=== PATIENT | female | born 2005 | race Caucasian/White ===

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

== ENCOUNTER 2024-01-01 21:51 | Outpatient (CLI) | payer OTHER, MEDICAID, SELFPAY ==
[2024-01-01 21:54] VITALS: BMI 20.4
[2024-01-01 21:55] VITALS: BP 128/73; PULSE 89; RESP 18; TEMP 36.6; O2SAT 99
[2024-01-01 21:59] VITALS: BMI 20.4
[2024-01-01 22:06] LABS: Microscopic, Urine URINE MICROSCOPIC (MICROSCOPIC)
[2024-01-01 22:10] LABS: Appearance,Urine CLEAR (Clear); Bilirubin,Urine Negative (Negative); Blood, Urine Negative (Negative); Color,Urine YELLOW (Yellow); Glucose,Urine (UA) Negative (Negative); Ketones,Urine TRACE (Negative); Leukocyte Esterase,Urine TRACE (Negative); Nitrate,Urine Negative (Negative); PH,Urine 6.5 (5.0-8.5); Protein,Urine Negative (Negative); Specific Gravity, Urine 1.025 (1.005-1.030)
[2024-01-01 22:22] LABS: Barbiturates Screen,Urine Negative ng/ml (<200)
[2024-01-01 22:23] LABS: Amphetamine/Metha Screen,Urine Negative ng/ml (<1000); Benzodiazepines Screen,Urine Negative ng/ml (<200)
[2024-01-01 22:24] LABS: Cannabinoid Screen,Urine Negative ng/ml (<50); Cocaine Screen,Urine Negative ng/ml (<300)
[2024-01-01 22:25] LABS: Methadone Screen,Urine Negative ng/ml (<300)
[2024-01-01 22:26] LABS: Opiate Screen,Urine Negative ng/ml (<300); Phencyclidine Screen,Urine Negative ng/ml (<25)
[2024-01-01 23:26] LABS: Squamous Epithelial Cell,Urine Occasional #/hpf (0-5); WBC,Urine Occasional #/hpf (0-3)
[2024-01-01 23:27] LABS: Yeast,Urine Occasional /lpf
== END 2024-01-01 22:48 | disposition home or self-care (01) ==
LOC: OBOUT 21:53 → OB 21:53
PROVIDERS: PCP Physician Assistant; Visit Provider Obstetrics & Gynecology
DX: O26.893 Other specified pregnancy related conditions, third trimester (principal); Z3A.35 35 weeks gestation of pregnancy
CPT/HCPCS: 80307; 81001; G0463

== ENCOUNTER 2024-01-05 09:50 | Outpatient (CLI) | payer OTHER, MEDICAID, SELFPAY ==
[2024-01-05 10:21] VITALS: BP 119/77; PULSE 73; RESP 18; TEMP 36.5; O2SAT 98; BMI 20.4
[2024-01-05 10:33] VITALS: BP 119/77; PULSE 73; RESP 18; TEMP 36.5; O2SAT 98; BMI 20.4
[2024-01-05 10:34] LABS: Microscopic, Urine URINE MICROSCOPIC (MICROSCOPIC)
[2024-01-05 10:44] LABS: Appearance,Urine CLEAR (Clear); Bilirubin,Urine Negative (Negative); Blood, Urine Negative (Negative); Color,Urine YELLOW (Yellow); Glucose,Urine (UA) Negative (Negative); Ketones,Urine TRACE (Negative); Leukocyte Esterase,Urine Negative (Negative); Nitrate,Urine Negative (Negative); Protein,Urine Negative (Negative)
[2024-01-05 11:14] LABS: Bacteria,Urine Trace /lpf
[2024-01-05] MEDS: DEXTROSE 5%-LACTATED RINGERS 1,000 ML 999 ML IV (11:30)
[2024-01-05 11:42] LABS: Amphetamine/Metha Screen,Urine Negative ng/ml (<1000)
[2024-01-05 11:43] LABS: Barbiturates Screen,Urine Negative ng/ml (<200)
[2024-01-05 11:44] LABS: Benzodiazepines Screen,Urine Negative ng/ml (<200); Cannabinoid Screen,Urine Negative ng/ml (<50)
[2024-01-05 11:45] LABS: Cocaine Screen,Urine Negative ng/ml (<300)
[2024-01-05 11:46] LABS: Methadone Screen,Urine Negative ng/ml (<300); Opiate Screen,Urine Negative ng/ml (<300)
[2024-01-05 11:47] LABS: Phencyclidine Screen,Urine Negative ng/ml (<25)
[2024-01-05] MEDS: SODIUM CHLORIDE 0.9% 10ML FLUSH SYRINGE 10 ML IV (12:24)
== END 2024-01-05 12:32 | disposition home or self-care (01) ==
LOC: OBOUT 09:51 → OB 09:53
PROVIDERS: PCP Physician Assistant; Visit Provider Obstetrics & Gynecology
DX: O26.893 Other specified pregnancy related conditions, third trimester (principal); Z3A.35 35 weeks gestation of pregnancy; R42 Dizziness and giddiness; R10.2 Pelvic and perineal pain
CPT/HCPCS: 80307; 81001; G0463

== ENCOUNTER 2024-01-06 20:20 | Outpatient (CLI) | payer OTHER, MEDICAID, SELFPAY ==
[2024-01-06 20:36] VITALS: BMI 20.5
[2024-01-06 20:41] LABS: Microscopic, Urine URINE MICROSCOPIC (MICROSCOPIC)
[2024-01-06 20:45] LABS: Appearance,Urine SL CLOUDY (Clear); Bilirubin,Urine Negative (Negative); Blood, Urine Negative (Negative); Color,Urine YELLOW (Yellow); Glucose,Urine (UA) Negative (Negative); Ketones,Urine 2+ (Negative); Leukocyte Esterase,Urine TRACE (Negative); Nitrate,Urine Negative (Negative); PH,Urine 6.5 (5.0-8.5); Protein,Urine Negative (Negative); Specific Gravity, Urine 1.025 (1.005-1.030)
[2024-01-06 20:49] VITALS: BP 115/84; PULSE 99; RESP 16; TEMP 36.5; O2SAT 98; BMI 20.5
[2024-01-06 20:59] LABS: Barbiturates Screen,Urine Negative ng/ml (<200); Benzodiazepines Screen,Urine Negative ng/ml (<200)
[2024-01-06 21:00] LABS: Amphetamine/Metha Screen,Urine Negative ng/ml (<1000)
[2024-01-06 21:01] LABS: Cannabinoid Screen,Urine Negative ng/ml (<50); Methadone Screen,Urine Negative ng/ml (<300)
[2024-01-06 21:02] LABS: Cocaine Screen,Urine Negative ng/ml (<300)
[2024-01-06 21:03] LABS: Opiate Screen,Urine Negative ng/ml (<300)
[2024-01-06 21:04] LABS: Phencyclidine Screen,Urine Negative ng/ml (<25)
[2024-01-06 21:30] LABS: WBC,Urine Occasional #/hpf (0-3)
== END 2024-01-06 21:34 | disposition home or self-care (01) ==
LOC: OBOUT 20:22 → OB 20:22
PROVIDERS: PCP Physician Assistant; Visit Provider Obstetrics & Gynecology
DX: O47.03 False labor before 37 completed weeks of gestation, third trimester (principal); O36.8130 Decreased fetal movements, third trimester, not applicable or unspecified; Z3A.35 35 weeks gestation of pregnancy
CPT/HCPCS: 80307; 81001; G0463

== ENCOUNTER 2024-01-10 16:45 | Outpatient (POV) | payer OTHER, MEDICAID, SELFPAY | END 2024-01-10 23:59 | disposition home or self-care (01) | LOC: SC 16:45 | PROVIDERS: PCP Physician Assistant; Visit Provider Dermatology | DX: Z00.00 Encounter for general adult medical examination without abnormal findings (principal) ==

== ENCOUNTER 2024-01-14 00:47 | Observation (INO) | payer OTHER, SELFPAY ==
[2024-01-14] VITALS (7 sets, daily range): BP systolic 104–122; BP diastolic 55–86; PULSE 77–97; RESP 15–18; TEMP 36.3–36.8; O2SAT 95–99; BMI 24.5; BMI 21.1
[2024-01-14 01:09] LABS: Basophils # 0.1 K/mm3 (0-0.2); Basophils % 0.6 % (0.1-2.0); Eosinophils # 0.1 K/mm3 (0.0-0.4); Eosinophils % 1.4 % (0.1-12.0); Hematocrit 32.5 % (37.0-47.0); Hemoglobin 10.1 g/dL (12.2-16.2); Lymphocytes # 2.2 K/mm3 (0.7-4.5); Lymphocytes % 22.5 % (10-50); Mean Corpuscular HGB Conc 31.2 g/dL (31.8-35.4); Mean Corpuscular Hemoglobin 25.3 pg (27.0-31.2); Mean Platelet Volume 8.9 fl (7.4-10.4); Monocytes # 0.4 K/mm3 (0.1-1.0); Monocytes % 4.2 % (1.7-9.3); Neutrophils % 71.2 % (37.0-80.0); Platelet Count 361 K/mm3 (142-424); Red Blood Count 4.01 M/mm3 (4.20-5.40); Red Cell Distribution Width 15.6 % (11.5-17.5); White Blood Count 9.9 K/mm3 (4.5-13.0)
[2024-01-14] MEDS: LACTATED RINGERS 1000ML 1,000 ML 999 ML IV ×2 (01:10→03:18)
[2024-01-14 01:15] LABS: Chloride 108 mmol/L (98-107); Potassium 3.6 mmoL/L (3.5-5.1); Sodium 134 mmol/L (136-145)
[2024-01-14 01:18] LABS: Microscopic, Urine URINE MICROSCOPIC (MICROSCOPIC)
[2024-01-14 01:18] LABS: Alanine Aminotransferase 16 U/L (12-78); Albumin Level 3.2 g/dl (3.5-5.0); Alkaline Phosphatase 299 U/L (38-126); Anion Gap 7.6 mEq/L (5-15); Aspartate Amino Transferase 28 U/L (14-36); Bilirubin,Total 0.4 mg/dl (0.2-1.3); Blood Urea Nitrogen 5 mg/dl (7-17); Calcium 8.5 mg/dl (8.4-10.2); Carbon Dioxide 22 mmol/L (22.0-30.0); Creatinine Clearance Estimated 163 mL/min (50-200); Estimated Glomerular Filt Rate 159 ml/min (>60); Ethyl Alcohol < 10 mg/dl (0-10); GFR (African American) 192 ML/MIN (>60); Globulin 3.2 g/dL (1.3-3.2); Glucose 94 mg/dl (74-100); Magnesium 1.8 mg/dl (1.6-2.3); Total Protein,Serum 6.4 g/dl (6.3-8.2)
--- NOTE | 2024-01-14 01:18 | ECG_ITS ---
APPROVED REPORT Exam: Resting ECG HR:73 bpm ECG Measurements Heart Rate 73 AXES ME 154 P 5 QRSd 97 QRS 72 QT 350 T 52 QTc 375 Conclusion SINUS RHYTHM Electronically signed by : PETER SANCHEZ, 01/15/2024 05:54:18
[2024-01-14 01:19] LABS: Appearance,Urine CLEAR (Clear); Bilirubin,Urine Negative (Negative); Blood, Urine Negative (Negative); Color,Urine YELLOW (Yellow); Glucose,Urine (UA) Negative (Negative); Ketones,Urine Negative (Negative); Leukocyte Esterase,Urine Negative (Negative); Nitrate,Urine Negative (Negative); Protein,Urine Negative (Negative)
--- NOTE | 2024-01-14 01:23 | HMH.EDGENADL ---
Discharge Plan Disposition Patient Disposition: Xfer Other Condition: Good Clinical Impressions Clinical Impression: Syncope, Abdominal pain affecting Discharge ED Provider: Bryn Casiano General Adult HPI General Chief complaint: Syncope Stated complaint: Syncope Time Seen by Provider: 01/14/24 00:50 Mode of Arrival: EMS Source of Information: EMS Limitations: No Limitations Description of Symptoms (Recalled from ER Triage Doc. by RN): 18 F presents via EMS from home after syncopal episode. The patient fell down after blacking out while arguing with her boyfriend. Patient states everything went black and she fell forward landing on her stomach and left hip, which she reports pain in. Patient is 37 weeks gestation, with uncomplicate so far. EMS reports on their arrival patient was following commands, VSS, NAD. History of Present Illness HPI narrative: 18-year-old female with at 37 and 5 presents after a fall and possible syncopal episode. She reports that she was in an argument with her boyfriend getting her set to go to leave when she got up and moved towards the door and then passed out. She reports that she fell and landed on her belly and her left hip. She thinks she hit her head on the back. She is not sure if she fully lost consciousness. She denies any other trauma. Denies any vaginal bleeding. She reports that she has had chest pains in the past and has passed out before but nothing recently. Related Data Home Medications Medication Instructions Recorded Confirmed PNV 153-FA 400 mcg-om3 35 mg-dha 1 tab PO DIRECTED 06/22/23 01/14/24 25 mg-epa 5 mg-fish oil chew tablet ( Gummies) omeprazole 20 mg capsule,delayed 20 mg PO DAILY 12/26/23 01/14/24 release ondansetron 4 mg disintegrating 4 mg PO Q6HP PRN Nausea And 01/14/24 01/14/24 tablet Vomiting Previous Rx's Medication Instructions Recorded acyclovir 200 mg/5 mL oral 400 mg (10 mL) PO TID #473 mL 12/19/23 suspension Allergies Allergy/AdvReac Type Severity Reaction Status Date / Time amoxicillin AdvReac Intermediate Gastrointestinal Verified 01/14/24 01:18 Upset [facility] Disclaimer: The information contained in this section may have been updated after the patient was seen, as this information can be updated by other users. 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 (Updated 01/15/24 @ 00:01 by Kenn Hernández) Syncope 36 weeks gestation of GBS bacteriuria GERD (gastroesophageal reflux disease) HSV-1 (herpes simplex virus 1) infection Screening for genetic disease carrier status Nausea and vomiting during Sexual behavior with high risk of exposure to communicable disease Allergic rhinitis Chronic ear infection Migraine Surgical History No history of previous surgery Family History Grandmother Cancer, Onset Age: 17 Ovarian Mother Cancer, Onset Age: 18 Ovarian Social History (Updated 01/14/24 @ 01:18 by Greg Villela RN) Smoking Status: Current some day smoker alcohol intake: never substance use type: denies use current occupational status: unemployed Travel in the last 8 weeks: None ROS Obtained: Yes All systems reviewed & no additional complaints except as documented Physical Exam General General appearance: alert and other (Appears upset) Head Head exam: atraumatic, normocephalic and normal inspection Eye Eye exam: Present normal appearance, PERRL and EOMI ENT ENT exam: Present normal oropharynx and normal external ear exam Neck Neck exam: Present normal inspection and full ROM Chest Chest inspection: Present normal inspection and symmetric chest wall rise; Absent tenderness Respiratory Respiratory exam: Present normal lung sounds bilaterally; Absent respiratory distress Cardiovascular Cardiovascular exam: Present regular rate and normal rhythm Abdominal Exam Abdominal exam: Present soft and distention (Fully gravid uterus, no bruising noted on the skin, mild tenderness over the left lower quadrant.); Absent tenderness or guarding Extremities Exam Extremities exam: Present normal inspection and other (Patient able to bear weight without difficulty. ); Absent edema or joint swelling Back Exam Back exam: Present normal inspection and tenderness (Mild tenderness over the left posterior hip/SI area.) Neurological Exam Neurological exam: Present alert and oriented X3; Absent motor sensory deficit Psychiatric Psychiatric exam: Present normal affect and normal mood Skin Skin exam: Present warm, dry and normal color Lymphatic Lymphatic Findings: no adenopathy Medical Decision Making Medical Records Medical records reviewed: Yes I reviewed the patient's medical records. Mike Inquiry Pt receiving controlled substance: No Mike was queried for this patient: No Vital Signs: 01/14/24 00:47 01/14/24 00:53 01/14/24 01:00 Temperature 98.1 F Temperature Source Oral Pulse Rate 97 H 88 Pulse Rate [Right] 91 H Respiratory Rate 16 18 15 Blood Pressure 122/73 116/86 Blood Pressure [Left Arm] 115/84 Blood Pressure Mean 83 96 Blood Pressure Mean [Left Arm] 94 Blood Pressure Source Blood Pressure Source [Left Arm] Automatic Cuff Blood Pressure Position Blood Pressure Position [Left Arm] Supine 02 Sat by Pulse Oximetry 95 97 98 Oxygen Delivery Method Room Air Room Air Room Air 01/14/24 01:30 01/14/24 01:50 Temperature 98.2 F Temperature Source Oral Pulse Rate 77 86 Pulse Rate [Right] Respiratory Rate 18 16 Blood Pressure 119/79 119/79 Blood Pressure [Left Arm] Blood Pressure Mean Blood Pressure Mean [Left Arm] Blood Pressure Source Automatic Cuff Blood Pressure Source [Left Arm] Blood Pressure Position Sitting Blood Pressure Position [Left Arm] 02 Sat by Pulse Oximetry 97 Oxygen Delivery Method Room Air Room Air Lab Data Lab results reviewed: Yes I reviewed the patient's lab results. Lab Results 01/14/24 00:50: WBC 9.9, RBC 4.01 L, Hgb 10.1 L, Hct 32.5 L, MCV 81.0, MCH 25.3 L, MCHC 31.2 L, RDW 15.6, Plt Count 361, MPV 8.9, Neut % (Auto) 71.2, Lymph % (Auto) 22.5, [place] % (Auto) 4.2, Eos % (Auto) 1.4, Baso % (Auto) 0.6, Neut # (Auto) 7.0, Lymph # (Auto) 2.2, [place] # (Auto) 0.4, Eos # (Auto) 0.1, Baso # (Auto) 0.1, Sodium 134 L, Potassium 3.6, Chloride 108 H, Carbon Dioxide 22, Anion Gap 7.6, BUN 5 L, Creatinine 0.50 L, Estimated Creat Clear 163, Estimated GFR 159, Est GFR ( Amer) 192, Glucose 94, Calcium 8.5, Magnesium 1.8, Total Bilirubin 0.4, AST 28, ALT 16, Alkaline Phosphatase 299 H, Total Protein 6.4, Albumin 3.2 L, Globulin 3.2, Albumin/Globulin Ratio 1.0 L, Plasma/Serum Alcohol < 10 01/14/24 01:11: Urine Color Yellow, Urine Appearance Clear, Urine pH 6.0, Ur Specific [place] 1.020, Urine Protein Negative, Urine Glucose (UA) Negative, Urine Ketones Negative, Urine Blood Negative, Urine Nitrate Negative, Urine Bilirubin Negative, Urine Urobilinogen 2.0, Ur Leukocyte Esterase Negative, Urine RBC None, Urine WBC 5-10, Ur Squamous Epith Cells 10-20, Urine Bacteria 2+, Urine Opiates Screen Negative, Urine Methadone Screen Negative, Ur Barbituates Screen Negative, Ur Phencyclidine Scrn Negative, Ur Amphetamines Screen Negative, U Benzodiazepines Scrn Negative, Urine Cocaine Screen Negative, U Marijuana (THC) Screen Negative 01/14/24 00:50 01/14/24 00:50 Orders (Tests/Meds): ED MEDICATIONS Discontinued Medications Generic Name Dose Route Start Last Admin Trade Name Freq PRN Reason Stop Dose Admin Butorphanol Tartrate 1 mg 01/14/24 04:00 01/14/24 04:06 Butorphanol Tartrate 2 Mg/Ml Vial IV 01/14/24 04:01 1 mg ONCE ONE Administration Lactated Ringer's 1,000 mls @ 999 mls/hr 01/14/24 01:00 01/14/24 01:10 Lactated Ringer's 1000 Ml Bag IV 01/14/24 02:00 999 mls/hr .Q1H1M AYSHA Administration Lactated Ringer's 1,000 mls @ 999 mls/hr 01/14/24 03:30 01/14/24 03:18 Lactated Ringer's 1000 Ml Bag IV 01/14/24 04:30 999 mls/hr .Q1H1M ONE Administration Lactated Ringer's 1,000 mls @ 80 mls/hr 01/14/24 04:00 01/14/24 04:07 Lactated Ringer's 1000 Ml Bag IV 02/13/24 03:59 80 mls/hr .[id number] AYSHA Administration Sodium Chloride 10 ml 01/14/24 01:08 Sodium Chloride 0.9% 10ml Flush Syringe IV 02/13/24 01:07 NEEDED PRN Maintain IV Site ORDERS Category Date Time Status CBC w/Auto Diff [Complete Blood Count Auto Diff] Stat Lab 01/14/24 00:50 Completed CMP [Comprehensive Metabolic Panel] Stat Lab 01/14/24 00:50 Completed Ethyl Alcohol Stat Lab 01/14/24 00:50 Completed Magnesium Stat Lab 01/14/24 00:50 Completed UA [Urinalysis and Microscopic] Stat Lab 01/14/24 01:11 Completed UDS [Drug Screen,Urine] Stat Lab 01/14/24 01:11 Completed Urine Culture Stat Micro 01/14/24 01:11 Received Medical Decision Narrative: 18-year-old female G1, P0 at 37 and 5 presents with lower abdominal pain and left hip pain after reportedly passing out falling during an argument with her boyfriend.. History was obtained interactive discussion with patient, EMS. On arrival, patient is [afebrile, hemodynamically stable, satting appropriately, alert, oriented x4, GCS 15], moving all extremities spontaneously. Full physical exam performed and significant for no bruising of the skin, mild lower abdominal tenderness on the left, mild tenderness of the left posterior hip, normal strength sensation and range of motion present. heart rate 177 on arrival. Differential includes but is not limited to fracture, intra-abdominal trauma, placental abruption, uterine rupture, vasovagal syncope, orthostatic syncope, cardiogenic syncope, psychogenic syncope, intoxication, withdrawal Patient was given 1 L fluid bolus for symptomatic management and correction of underlying abnormalities. Workup initiated including CBC CMP EKG UA UDS alcohol. Radiographs and CT imaging were considered but, but at this time given history and exam I feel the risk of radiation outweigh the benefits. Patient was placed on NST by SYSTEMS QA ANALYST. It is reactive. Brief bedside ultrasound was performed by me, confirms appropriate heart rate, movement noted. Images were not saved. On re-evaluation, patient [remains afebrile, HD stable.] Patient was able to ambulate back and forth to the bathroom without difficulty. Laboratory workup independently interpreted by me and significant for no leukocytosis, hemoglobin 10, normal renal function, no significant electrolyte derangement, normal fingerstick blood glucose, mildly elevated alk phos, alcohol level negative, UDS negative. Urine has 10-20 squames and so is probably a poor catch, but does have 2+ bacteria and 5-10 WBCs, no blood. Plan to obtain a second UA to reassess whether patient truly has asymptomatic bacteriuria. EKG independently interpreted by me and significant for normal sinus rhythm, rate of 73, no concerning ST or T wave changes, no evidence of arrhythmia, interpreted at 1:18 AM on January 13. Given patient history, exam and workup, patient's presentation most likely represents idiopathic syncope and traumatic abdominal pain. Interact discussion had with SYSTEMS QA ANALYST nurses who discussed with Dr. Hazel, plan for admission to the OB unit for continued monitoring. Procedures Risk/Benefits of Procedure(s) Were Explained: Yes Critical Care Critical Care Time Critical Care Time: No
[2024-01-14 01:30] LABS: Amphetamine/Metha Screen,Urine Negative ng/ml (<1000); Barbiturates Screen,Urine Negative ng/ml (<200)
[2024-01-14 01:31] LABS: Benzodiazepines Screen,Urine Negative ng/ml (<200)
[2024-01-14 01:32] LABS: Cannabinoid Screen,Urine Negative ng/ml (<50); Cocaine Screen,Urine Negative ng/ml (<300)
[2024-01-14 01:33] LABS: Methadone Screen,Urine Negative ng/ml (<300)
[2024-01-14 01:34] LABS: Opiate Screen,Urine Negative ng/ml (<300); Phencyclidine Screen,Urine Negative ng/ml (<25)
[2024-01-14 01:35] LABS: Bacteria,Urine 2+ /lpf
--- NOTE | 2024-01-14 01:35 | PC.NURSE ---
Patient has been placed on NST by documenting RN and ALYSHA Maya from OB Department. Patient is reactive on Agar with baseline rate of 135.
--- NOTE | 2024-01-14 01:44 | PC.NURSE ---
Patient will be discharged from ED to OB for continued monitoring. Awaiting call back from OB Dept for bed at this time.
[2024-01-14] MEDS: BUTORPHANOL TARTRATE 2 MG/ML VIAL 1 MG IV (04:06)
[2024-01-14] MEDS: LACTATED RINGERS 1000ML 1,000 ML 80 ML IV (04:07)
--- NOTE | 2024-01-14 08:00 | US_ITS ---
PROCEDURE INFORMATION: Exam: US Biophysical Profile Without Non-Stress Test Exam date and time: 01/14/2024 8:16 AM Age: 18 years old Clinical indication: Pain indication: Pain fundal over placenta; ; Additional info: Syncope episode, fall TECHNIQUE: Imaging protocol: US biophysical profile without non-stress testing. Total images: 356 COMPARISON: US OB /MATERNAL DETAIL 09/16/2023 10:32 AM FINDINGS: heart rate: 150 bpm Amniotic fluid index: JAVIER is 8.42 cm. BIOPHYSICAL PROFILE: breathing movement (BPP): 0 out of 2. body movement (BPP): 2 /2 tone (BPP): 2 /2 Amniotic fluid (BPP): 2 /2 IMPRESSION: Biophysical profile score 6/8. No breathing noted during the study.
--- NOTE | 2024-01-14 08:56 | HMH.PHAINT1 ---
Pharmacy Intervention Comments: MEDICATION RECONCILIATION COMPLETE USING EXTERNAL PHARMACY FILL HISTORY AND MOST RECENT OB OFFICE VISIT NOTE.
--- NOTE | 2024-01-14 12:05 | EXP.HPDC ---
General Admission date:: 01/14/24 Discharge date: 01/14/24 *Admission Date: 01/14/24 *Chief complaint: Syncopal episode *History of present illness: Ms Raman Rees is a 18 yo at 36w6d who presented to the ED by EMS after syncopal episode at home. She blacked out at home after arguing with her boyfriend. She states she fell forward onto her belly and left hip when she fell. Her mom states she was out of it for about 5 minutes. She has had dizziness and syncopal/near syncopal episodes a few times during the 3rd trimester. Labwork, vital signs and EKG within normal limits in the ED. She was sent to L&D for prolonged monitoring. NST category 1, reactive. [place] initially demonstrated contractions every 2 minutes. SVE closed/thick/high. No vaginal bleeding or leakage of fluid. [facility] Disclaimer: The information contained in this section may have been updated after the patient was seen, as this information can be updated by other users. 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 (Updated 01/14/24 @ 12:23 by Rand Pizano DO) 36 weeks gestation of GBS bacteriuria GERD (gastroesophageal reflux disease) HSV-1 (herpes simplex virus 1) infection Screening for genetic disease carrier status Nausea and vomiting during Sexual behavior with high risk of exposure to communicable disease Allergic rhinitis Chronic ear infection Migraine Surgical History No history of previous surgery Family History Grandmother Cancer, Onset Age: 17 Ovarian Mother Cancer, Onset Age: 18 Ovarian Social History (Updated 01/14/24 @ 01:18 by Greg Villela RN) Smoking Status: Current some day smoker alcohol intake: never substance use type: denies use current occupational status: unemployed Travel in the last 8 weeks: None Review of Systems Review of Systems Review of systems:: pertinent systems reviewed and negative unless documented below *Cardiovascular Cardiovascular: Reports syncope *Gastrointestinal Gastrointestinal: Reports abdominal pain and Reports other (+ contractions) *Neurologic Neurologic: Reports syncope Exam Data for Last 24 hours Vital signs and Labs for Last 24 Hours: Temp Pulse Resp BP Pulse Ox O2 Del Method 97.4 F L 94 H 17 104/55 L 99 Room Air 01/14/24 02:50 01/14/24 02:50 01/14/24 02:50 01/14/24 02:50 01/14/24 02:50 01/14/24 02:50 Laboratory Results - last 24 hr 01/14/24 00:50: WBC 9.9, RBC 4.01 L, Hgb 10.1 L, Hct 32.5 L, MCV 81.0, MCH 25.3 L, MCHC 31.2 L, RDW 15.6, Plt Count 361, MPV 8.9, Neut % (Auto) 71.2, Lymph % (Auto) 22.5, [place] % (Auto) 4.2, Eos % (Auto) 1.4, Baso % (Auto) 0.6, Neut # (Auto) 7.0, Lymph # (Auto) 2.2, [place] # (Auto) 0.4, Eos # (Auto) 0.1, Baso # (Auto) 0.1, Sodium 134 L, Potassium 3.6, Chloride 108 H, Carbon Dioxide 22, Anion Gap 7.6, BUN 5 L, Creatinine 0.50 L, Estimated Creat Clear 163, Estimated GFR 159, Est GFR ( Amer) 192, Glucose 94, Calcium 8.5, Magnesium 1.8, Total Bilirubin 0.4, AST 28, ALT 16, Alkaline Phosphatase 299 H, Total Protein 6.4, Albumin 3.2 L, Globulin 3.2, Albumin/Globulin Ratio 1.0 L, Plasma/Serum Alcohol < 10 01/14/24 01:11: Urine Color Yellow, Urine Appearance Clear, Urine pH 6.0, Ur Specific Junior 1.020, Urine Protein Negative, Urine Glucose (UA) Negative, Urine Ketones Negative, Urine Blood Negative, Urine Nitrate Negative, Urine Bilirubin Negative, Urine Urobilinogen 2.0, Ur Leukocyte Esterase Negative, Urine RBC None, Urine WBC 5-10, Ur Squamous Epith Cells 10-20, Urine Bacteria 2+, Urine Opiates Screen Negative, Urine Methadone Screen Negative, Ur Barbituates Screen Negative, Ur Phencyclidine Scrn Negative, Ur Amphetamines Screen Negative, U Benzodiazepines Scrn Negative, Urine Cocaine Screen Negative, U Marijuana (THC) Screen Negative I & O for Last 24 hours: Intake & Output 01/11/24 01/12/24 01/13/24 01/14/24 23:59 23:59 23:59 23:59 Intake Total 1000 / 1000 Balance 1000 / 1000 Weight 123 lb Constitutional Constitutional: no acute distress and cooperative *Routine HEENT Exam Head: Present normocephalic and atraumatic Eye: Absent conjunctivae pink ENT: Present mucous membranes moist *Routine Neck Exam Neck: Present full ROM *Routine Respiratory Exam Respiratory: Present CTA bilaterally and normal respiratory effort *Routine Cardiovascular Exam Cardiovascular: Present RRR *Routine Abdominal Exam Abdominal: Present soft (Gravid); Absent tenderness *Routine Rectal Exam Rectal:: deferred *Routine Genitalia Exam Genitalia:: normal female *Routine Extremities Exam Extremities: Present full ROM; Absent edema or calf tenderness *Routine Neurological Exam Neurological: Present alert, moving all extremities and normal speech Routine Psychiatric Exam Psychiatric: Present normal affect and cooperative Meds Home Medications and Allergies Home Medications Medication Instructions Recorded Confirmed Type PNV 153-FA 400 mcg-om3 35 mg-dha 1 tab PO DIRECTED 06/22/23 01/14/24 History 25 mg-epa 5 mg-fish oil chew tablet ( Gummies) acyclovir 200 mg/5 mL oral 400 mg (10 mL) PO TID #473 mL 12/19/23 01/14/24 Rx suspension omeprazole 20 mg capsule,delayed 20 mg PO DAILY 12/26/23 01/14/24 History release ondansetron 4 mg disintegrating 4 mg PO Q6HP PRN Nausea And 01/14/24 01/14/24 History tablet Vomiting New Prescriptions to Start Prescriptions: Allergies Allergy/AdvReac Type Severity Reaction Status Date / Time amoxicillin AdvReac Intermediate Gastrointestinal Verified 01/14/24 01:18 Upset Hospital Course Hospital Course Hospital Course: Ms Raman Rees is a 18 yo at 36w6d who presented to the ED by EMS after syncopal episode at home. She blacked out at home after arguing with her boyfriend. She states she fell forward onto her belly and left hip when she fell. Her mom states she was out of it for about 5 minutes. She has had dizziness and syncopal/near syncopal episodes a few times during the 3rd trimester. Labwork, vital signs and EKG within normal limits in the ED. She was sent to L&D for prolonged monitoring. NST category 1, reactive. [place] initially demonstrated contractions every 2 minutes. SVE closed/thick/high. No vaginal bleeding or leakage of fluid. She has been continuously monitored for about 8-9 hours. After IV fluids contractions spaced out and then stopped followed by periods of irritability and maternal movement. BPP was 6/8, 2 off for breathing, JAVIER WNL, 8.4. With reactive NST, BPP 8/10. No signs of placental abruption on ultrasound. No vaginal bleeding or leakage of fluid. She was discharged home with labor precautions and kick counts. She has appointment scheduled in the office on 01/17 at 1015. Plan for NST at that visit. Will scheduled repeat BPP next week. Results Data Completed and Pending Labs on day of discharge: Labs from last 24 hours 01/14/24 01/14/24 01:11 00:50 WBC 9.9 RBC 4.01 L Hgb 10.1 L Hct 32.5 L MCV 81.0 MCH 25.3 L MCHC 31.2 L RDW 15.6 Plt Count 361 MPV 8.9 Neut % (Auto) 71.2 Lymph % (Auto) 22.5 [place] % (Auto) 4.2 Eos % (Auto) 1.4 Baso % (Auto) 0.6 Neut # (Auto) 7.0 Lymph # (Auto) 2.2 [place] # (Auto) 0.4 Eos # (Auto) 0.1 Baso # (Auto) 0.1 Sodium 134 L Potassium 3.6 Chloride 108 H Carbon Dioxide 22 Anion Gap 7.6 BUN 5 L Creatinine 0.50 L Estimated Creat Clear 163 Estimated GFR 159 Est GFR ( Amer) 192 Glucose 94 Calcium 8.5 Magnesium 1.8 Total Bilirubin 0.4 AST 28 ALT 16 Alkaline Phosphatase 299 H Total Protein 6.4 Albumin 3.2 L Globulin 3.2 Albumin/Globulin Ratio 1.0 L Urine Color Yellow Urine Appearance Clear Urine pH 6.0 Ur Specific Junior 1.020 Urine Protein Negative Urine Glucose (UA) Negative Urine Ketones Negative Urine Blood Negative Urine Nitrate Negative Urine Bilirubin Negative Urine Urobilinogen 2.0 Ur Leukocyte Esterase Negative Urine RBC None Urine WBC 5-10 Ur Squamous Epith Cells 10-20 Urine Bacteria 2+ Urine Opiates Screen Negative Urine Methadone Screen Negative Ur Barbituates Screen Negative Ur Phencyclidine Scrn Negative Ur Amphetamines Screen Negative U Benzodiazepines Scrn Negative Urine Cocaine Screen Negative U Marijuana (THC) Screen Negative Plasma/Serum Alcohol < 10 DS: Diagnosis Discharge Diagnosis (1) 36 weeks gestation of : Status: Acute Code(s): Z3A.36 - 36 weeks gestation of (2) Syncope: Status: Acute Code(s): R55 - Syncope and collapse Qualifiers: Encounter type: initial encounter (3) Abdominal pain affecting : Status: Acute Code(s): O26.899 - Other specified related conditions, unspecified trimester; R10.9 - Unspecified abdominal pain (4) GBS bacteriuria: Status: Acute Code(s): R82.71 - Bacteriuria Problem details: Urine culture positive for GBS. She will need abx in labor regardless of RV swab (5) GERD (gastroesophageal reflux disease): Status: Acute Code(s): K21.9 - Gastro-esophageal reflux disease without esophagitis Qualifiers: Esophagitis presence: esophagitis presence not specified Qualified Code(s): K21.9 - Gastro-esophageal reflux disease without esophagitis (6) HSV-1 (herpes simplex virus 1) infection: Status: Acute Code(s): B00.9 - Herpesviral infection, unspecified Problem details: vulvovaginal (7) Anxiety: Status: Acute Code(s): F41.9 - Anxiety disorder, unspecified Discharge Plan Disposition Patient Disposition: Home, Self-Care Condition: Good Discharge Order Discharge Orders: Discharge Order (Routine); Ordered 01/14/24 Ordered By: Rand Pizano Follow up Plan Follow up with: Rand Pizano DO [Staff Physician] - 01/18/24 Prescriptions/Medication Reconciliation: Continued acyclovir 200 mg/5 mL suspension 400 mg PO TID Qty: 473 1RF Gummies 400 mcg-35 mg- 25 mg-5 mg tablet,chewable 1 tab PO DIRECTED omeprazole 20 mg Capsule,Delayed Release(Dr/Ec) 20 mg PO DAILY ondansetron 4 mg tablet,disintegrating 4 mg PO Q6HP PRN (Reason: Nausea And Vomiting) Problem Reconciliation Problems Reviewed?: Yes Patient Discharge Instructions ACTIVITY: Limited activity DIET: continue same diet and regular diet Additional Instructions: Rest, drink plenty of fluids Patient Instructions: How to Do Kick Counts, Antepartum Care Providers Primary Care Provider: Mikayla Carter Admit Provider: Rand Pizano Attending Provider: Rand Pizano
== END 2024-01-14 12:26 | disposition home or self-care (01) ==
LOC: ER 01:42 → OB 11:30
PROVIDERS: Admitting Provider Obstetrics & Gynecology; Emergency Provider Emergency Medicine; PCP Physician Assistant; Visit Provider Obstetrics & Gynecology
DX: O26.893 Other specified pregnancy related conditions, third trimester (principal); R55 Syncope and collapse; Z3A.36 36 weeks gestation of pregnancy; R10.9 Unspecified abdominal pain; K21.9 Gastro-esophageal reflux disease without esophagitis; O98.513 Other viral diseases complicating pregnancy, third trimester
CPT/HCPCS: 76819; 80053; 80307; 81001; 83735; 85025; 87086; 93005; G0378; G0463

== ENCOUNTER 2024-01-18 00:21 | Outpatient (CLI) | payer OTHER, SELFPAY ==
[2024-01-18 00:26] VITALS: BMI 21.1
[2024-01-18 00:43] VITALS: BMI 21.1
[2024-01-18 00:53] LABS: Fetal Membrane Rupture (Rapid) Negative (Negative)
== END 2024-01-18 01:58 ==
LOC: OB 01:48 → OBOUT 07:42
PROVIDERS: PCP Physician Assistant; Visit Provider Nurse Practitioner Obstetrics & Gynecology
DX: O47.03 False labor before 37 completed weeks of gestation, third trimester (principal); Z3A.37 37 weeks gestation of pregnancy
CPT/HCPCS: 84112; G0463

== ENCOUNTER 2024-01-19 08:33 | Outpatient (CLI) | payer OTHER, SELFPAY ==
[2024-01-19 08:43] VITALS: BMI 20.4
[2024-01-19 09:00] VITALS: BP 117/73; PULSE 90; RESP 16; TEMP 36.6; O2SAT 97; BMI 20.2
[2024-01-19 09:21] LABS: Fetal Membrane Rupture (Rapid) Negative (Negative)
[2024-01-19 09:21] LABS: Microscopic, Urine URINE MICROSCOPIC (MICROSCOPIC)
[2024-01-19 09:30] LABS: Appearance,Urine CLEAR (Clear); Blood, Urine TRACE-I (Negative); Color,Urine YELLOW (Yellow); Glucose,Urine (UA) Negative (Negative); Ketones,Urine 2+ (Negative); Leukocyte Esterase,Urine 2+ (Negative); Nitrate,Urine Negative (Negative); PH,Urine 6.5 (5.0-8.5); Protein,Urine TRACE (Negative)
[2024-01-19 09:38] LABS: Bilirubin,Urine Negative (Negative)
[2024-01-19 09:43] LABS: Barbiturates Screen,Urine Negative ng/ml (<200); Benzodiazepines Screen,Urine Negative ng/ml (<200)
[2024-01-19 09:44] LABS: Amphetamine/Metha Screen,Urine Negative ng/ml (<1000)
[2024-01-19 09:45] LABS: Cannabinoid Screen,Urine Negative ng/ml (<50); Cocaine Screen,Urine Negative ng/ml (<300)
[2024-01-19 09:46] LABS: Methadone Screen,Urine Negative ng/ml (<300)
[2024-01-19 09:47] LABS: Opiate Screen,Urine Negative ng/ml (<300); Phencyclidine Screen,Urine Negative ng/ml (<25)
[2024-01-19 10:00] LABS: Bacteria,Urine Trace /lpf; RBC,Urine Occasional #/hpf (0-3)
== END 2024-01-19 09:50 | disposition home or self-care (01) ==
LOC: OBOUT 08:34 → OB 08:35
PROVIDERS: PCP Physician Assistant; Visit Provider Nurse Practitioner Obstetrics & Gynecology
DX: O26.893 Other specified pregnancy related conditions, third trimester (principal); Z3A.37 37 weeks gestation of pregnancy
CPT/HCPCS: 80307; 81001; 84112; 87086; G0463

== ENCOUNTER 2024-01-19 12:56 | Outpatient (CLI) | payer OTHER, SELFPAY ==
--- NOTE | 2024-01-19 12:56 | US_ITS ---
PROCEDURE: US OB BIOPHYSICAL PROFILE CLINICAL INDICATION: repeat BPP, syncopal episode COMPARISON: US US OB BIOPHYSICAL PROFILE from 01/14/2024 FINDINGS: Transabdominal sonographic images of the uterus were obtained. From her established due date she is 37weeks 4days. The following parameters are obtained: Viable Fetus in the cephalic presentation with a posterior placenta grade 2. Measurements: heart Rate = 139bpm Amniotic fluid index: 11.54cm, MVP 4.43 cm. Qualitative AFV:2 Breathing movements: 2 Gross Body Movements: 2 Tone: 2 Biophysical profile score: 8 No obvious anomalies evident.Kidneys, stomach, bladder, four-chamber heart, three-vessel cord appear normal. IMPRESSION: 1. Viable fetus in the cephalic presentation with a posterior placenta grade 2. 2. The fluid is within normal limits with an amniotic fluid index of 11.54 cm, MVP 4.43 cm. 3. Biophysical profile is 8/8 with good breathing movement and movement seen. Dictated by: Jun Haro MD 01/19/2024 16:56 Jun Haro MD in OV 01/19/2024 16:56
== END 2024-01-19 23:59 ==
LOC: RAD 12:56
PROVIDERS: PCP Physician Assistant; Visit Provider Obstetrics & Gynecology
DX: O26.893 Other specified pregnancy related conditions, third trimester (principal); R55 Syncope and collapse; Z3A.37 37 weeks gestation of pregnancy
CPT/HCPCS: 76819

== ENCOUNTER 2024-01-20 07:04 | Outpatient (CLI) | payer OTHER, SELFPAY ==
[2024-01-20 07:09] VITALS: BMI 20.4
[2024-01-20 07:59] VITALS: BP 149/89; PULSE 78; RESP 16; TEMP 36.7; O2SAT 99; BMI 20.2
[2024-01-20] MEDS: BUTORPHANOL TARTRATE 2 MG/ML VIAL 1 MG IV (08:25)
[2024-01-20] MEDS: LACTATED RINGERS 1000ML 1,000 ML 999 ML IV (08:26)
--- NOTE | 2024-01-20 08:58 | EXP.ACUTE.PN ---
Subjective *Date: 01/20/24 *Time: 08:58 Interval history: She is a 18-year-old 1 para 0 at 37+5 weeks gestational age. She has been in labor and delivery multiple times for suspected labor but her cervix has not changed. Recent ultrasound showed good biophysical profile fetus in cephalic presentation, normal fluid. Medical Exam Vital signs and Labs for Last 24 Hours: Intake and Output 01/19/24 01/20/24 01/20/24 19:59 03:59 11:59 Other: Weight 119 lb Patient Weight 01/20/24 11:59 Weight 119 lb I & O for Labs for Last 24 Hours: Intake & Output 01/17/24 01/18/24 01/19/24 01/20/24 11:59 11:59 11:59 11:59 Weight 119 lb Head: Present atraumatic ENT: Present normal exam Neck: Present normal inspection Respiratory: Present normal respiratory effort; Absent accessory muscle use Rectal (female): Present deferred Comment:: Her cervix is 1 to 2 cm 75% -2. No change since her last exam. Assessment and Plan *Assessment and plan (1) False labor after 37 completed weeks of gestation: Status: Acute Category: Medical Code(s): O47.1 - False labor at or after 37 completed weeks of gestation Plan She agreed to some IV fluids. We have also given her 1 mg of Stadol. She is having irregular contractions. Her cervix has not changed. We will plan to send her home later this morning.
== END 2024-01-20 09:56 | disposition home or self-care (01) ==
LOC: OBOUT 07:05 → OB 07:06
PROVIDERS: PCP Physician Assistant; Visit Provider Nurse Practitioner Obstetrics & Gynecology
DX: O26.893 Other specified pregnancy related conditions, third trimester (principal); O47.1 False labor at or after 37 completed weeks of gestation; Z3A.37 37 weeks gestation of pregnancy
CPT/HCPCS: G0463

== ENCOUNTER 2024-01-23 07:34 | Outpatient (CLI) | payer OTHER, SELFPAY ==
[2024-01-23 08:04] VITALS: BP 138/82; PULSE 70; RESP 17; TEMP 36.9; O2SAT 98; BMI 22.3
[2024-01-23 08:21] LABS: Microscopic, Urine URINE MICROSCOPIC (MICROSCOPIC)
[2024-01-23 08:43] LABS: Appearance,Urine CLEAR (Clear); Bilirubin,Urine Negative (Negative); Blood, Urine Negative (Negative); Color,Urine YELLOW (Yellow); Glucose,Urine (UA) Negative (Negative); Ketones,Urine Negative (Negative); Leukocyte Esterase,Urine Negative (Negative); Nitrate,Urine Negative (Negative); Protein,Urine Negative (Negative); Urobilinogen,Urine 0.2 EU/dl (0.2)
[2024-01-23 08:55] LABS: Amphetamine/Metha Screen,Urine Negative ng/ml (<1000)
[2024-01-23 08:56] LABS: Barbiturates Screen,Urine Negative ng/ml (<200); Benzodiazepines Screen,Urine Negative ng/ml (<200)
[2024-01-23 08:57] LABS: Cannabinoid Screen,Urine Negative ng/ml (<50); Cocaine Screen,Urine Negative ng/ml (<300)
[2024-01-23 08:58] LABS: Methadone Screen,Urine Negative ng/ml (<300)
[2024-01-23 08:59] LABS: Opiate Screen,Urine Negative ng/ml (<300); Phencyclidine Screen,Urine Negative ng/ml (<25)
[2024-01-23 09:00] LABS: Bacteria,Urine Trace /lpf; WBC,Urine Occasional #/hpf (0-3)
== END 2024-01-23 08:58 | disposition home or self-care (01) ==
LOC: OBOUT 07:35 → OB 07:36
PROVIDERS: PCP Physician Assistant; Visit Provider Obstetrics & Gynecology
DX: O60.03 Preterm labor without delivery, third trimester (principal); Z3A.38 38 weeks gestation of pregnancy
CPT/HCPCS: 80307; 81001; G0463

== ENCOUNTER 2024-01-29 13:15 | Inpatient (IN) | payer OTHER, MEDICAID, SELFPAY ==
--- OUTSIDE RECORDS SUMMARY | 2024-01-29 13:18 | XMS_ITS | Clinical Summary ---
Author Name Unknown Address [address] [place] [address] [place] [address] Phone Organization [facility] , [facility] Address [address] [address] Phone Care Team Providers Care Management Advisor Name Role Phone Tan Lainez MD Unavailable [phone] Josiah CASTILLO, Wong Unavailable [phone] Reason for Visit and Chief Complaint The Chief Complaint is: RT Knee pain Problems Includes: Problems addressed during this encounter and other active Problems Current Visit Onset Date Resolved Date Provider Conditio n Status Joint Pain in the Left Knee 11/08/2022 Tan Carrizales PA-C Active Last Documented On 3 1:31PM ; [facility] Past Visits Onset Date Resolved Date Provider Condition Status Bone Pain in the Left Foot 11/20/2015 Devante Solomon MD Active Last Documented On 6 2:37PM ; [facility] Plan of Treatment Patient was seen by myself Tan Carrizales PA-C. 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 work - Last Documented On 11/08/2022 3:22PM ; [facility] Assessments Includes: Assessments from this encounter Findings Right knee pain possible meniscus tear versus patella subluxation or MPFL tear - Last Documented On 11/08/2022 3:22PM ; [facility] Medical Equipment - Implanted Devices Includes: Current Devices No Medical Equipment Recorded Medications Includes: Medications discussed during this encounter and other current Medications Past Medications on file Dexamethasone Sodium Phospha te 4 MG/ML Injection Solution 11/30/2022 - 12/30/2022 Provider: Wong mao MD Diagnosis: use as directed- to be used by physical therapy Last Documented On 3 10:45AM By Orly Eastman ; [facility] Medications Administered Includes: Administered Medications from this encounter No Administered Medications Recorded Vital Signs Includes: Vital Signs from this encounter Vital Name 11/08/2022 01:35P Blood Pressure Sitting (mmHg) 109/48 Pulse Rate-Sitting (bpm) 77 Height (in) 64 Weight (lb) 100 Body Mass Index 17.2 BMI Percentile (percentile) 3.4 Body Surface Area 1.5 Note: MG Last Documented: On 11/08/2022 1:36PM ; [facility] Results Includes: Results discussed during this encounter No Results Recorded For Specified Dates History of Present Illness Includes: History of Present Illness from this encounter WAQAR Rees is a 16 year old female. - Symptoms tylenol makes the pain better, weight baring makes the pain worse. - Allergy list reviewed - Problem list reviewed - Medication list reviewed - Medication list reviewed with family member - Previous history of new onset pain 11/06/2022 Injury is not work related or an automotive accident - Sudden onset - Pain is constant (100% of the time) - Patient pain level from 1-10: 8 Medications used for this condition: Patient injured her right knee on Tuesday11/06/22 she feels that she possibly dislocated her patella she has had this happen before on the left knee she is unable to bear weight using crutches she been using a patellar J brace she is having difficulty straightening out the right knee Social History Description Last Updated Tobacco non-user 11/08/2022 Last Documented On 3 3:22PM ; [facility] No recent change in diet 11/08/2022 Last Documented On 3 3:22PM ; [facility] Not a current smoker. 11/08/2022 Last Documented On 3 3:22PM ; [facility] Never drank alcohol 11/08/2022 Last Documented On 3 3:22PM ; [facility] Never smoked 11/08/2022 Last Documented On 3 3:22PM ; [facility] Never used drugs 11/08/2022 Last Documented On 3 3:22PM ; [facility] No tobacco use 11/20/2015 Last Documented On 3 1:31PM ; [facility] Smoking status : Never smoker 11/20/2015 Last Documented On 3 1:31PM ; [facility] No caffeine use 11/20/2015 Last Documented On 3 1:31PM ; [facility] No recent change in diet 11/20/2015 Last Documented On 3 1:31PM ; [facility] Not a current smoker 11/20/2015 Last Documented On 3 1:31PM ; [facility] Not exercising regularly 11/20/2015 Last Documented On 3 1:31PM ; [facility] Not using alcohol 11/20/2015 Last Documented On 3 1:31PM ; [facility] Not using drugs 11/20/2015 Last Documented On 3 1:31PM ; [facility] Procedures and Surgical History Includes: Procedures from this encounter Procedures Code Diagnosis Performing Provider Service L ocation Service Date use of tobacco assessment performed 1000F Last Documented On 3 2:28PM ; [facility] Clinical summary provided to patient Last Documented On 3 1:31PM ; [facility] an X-ray was performed 99401 Last Documented On 3 2:27PM ; [facility] history of an X-ray was performed 11/20/[address] [facility] [address] Last Documented On 3 1:31PM ; [facility] 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 Includes: 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 addressed during this encounter Description Last Updated History of asthma 11/08/2022 Last Documented On 3 3:22PM ; [facility] History of Fractures 11/08/2022 Last Documented On 3 3:22PM ; [facility] History of Heartburn / Acid Reflux 11/08 Last Documented On 3 3:22PM ; [facility] Past medical and surgical history non-co ntributory 11/20/2015 Last Documented On 3 1:31PM ; [facility] Family History Includes: Family History addressed during this encounter Description Last Updated Diabetes mellitus 11/08/2022 Last Documented On 3 3:22PM ; [facility] Family history of cancer 11/08/2022 Last Documented On 3 3:22PM ; [facility] Family history of systemic hypertension 11/08/2022 Last Documented On 3 3:22PM ; [facility] Maternal grandfather's history of system ic hypertension 11/08/2022 Last Documented On 3 3:22PM ; [facility] Maternal grandmother's history of diabet es mellitus 11/08/2022 Last Documented On 3 3:22PM ; [facility] Maternal grandmother's history of family history of cancer 11/08/2022 Last Documented On 3 3:22PM ; [facility] Maternal grandmother's history of system ic hypertension 11/08/2022 Last Documented On 3 3:22PM ; [facility] Maternal history of family history of ca ncer 11/08/2022 Last Documented On 3 1:31PM ; [facility] Maternal history of family history of ca ncer 11/08/2022 Last Documented On 3 3:22PM ; [facility] Paternal grandfather's history of system ic hypertension 11/08/2022 Last Documented On 3 3:22PM ; [facility] Paternal grandmother's history of system ic hypertension 11/08/2022 Last Documented On 3 3:22PM ; [facility] Review of Systems Includes: Review of Systems from this encounter Systemic: No symptoms, not feeling tired, no recent weight loss, and no recent weight gain. No edema. Head: No headache and no sinus pain. Eyes: No vision problems and no glaucomatous visual field defect. No Cataracts, no Glasses/Contacts, and no Glaucoma. Otolaryngeal: No hearing loss and no tinnitus. No nasal symptoms. Cardiovascular: No chest pain or discomfort, no palpitations, no Hypertension, and no High Cholesterol. Pulmonary: Daytime asthma symptoms. No cough and no chronic cough. No wheezing. Gastrointestinal: No heartburn and no abdominal pain. No Indigestion, no Acid Reflux, no Peptic Ulcer, no GI Stomach Bleed, and no Ulcers. Endocrine: No hot flashes, no muscle weakness, no Diabetes, no Hypothyroid, and no Hyperthyroid. Hematologic: No easy bleeding, no tendency for easy bruising, and no Anemia. Musculoskeletal: No Arthritis and no lower back pain. No soft tissue swelling and no localized joint pain. Neurological: No dizziness, no convulsions, and no numbness. Psychological: No anxiety. Anxiety. No emotional lability, no depression, and no insomnia. Not crying for no reason. Skin: Dry skin. No Ulcers, no Scars, no rash, and no ulcers. Allergic and Immunologic: Complaint of seasonal allergic reaction. Mental Status Includes: Mental Status from this encounter Description No anxiety Functional Status Includes: Functional Status from this encounter No Functional Status Recorded Physical Exam Includes: Physical Exam from this encounter Allergies Includes: Active Allergies No Known Allergies Encounters Encounter Provider Location Date Check-In Time Check-Out Time Diagnosis Physician Specified Tan Carrizales PA-C [facility] 11/08/19 1:18PM 2:11PM Insurance Includes: Active Insurance Policies Plan Name Member ID Group # Subscriber Relationship Effect alexis Dates 1 - [facility] [employer] [id number] LILIANA DOMINGUEZ 3 - Unknown Clinical Notes Includes: Clinical Notes from this encounter * Progress note Date Encounter Last Documented by 11/08/2022 Physician Specified Last jefry blank on 11/08/2022; 3:22 PM, Tan Carrizales PA-C; [facility], [facility] Active Problems & Conditions - Bone Pain in the Left Foot - Joint Pain in the Left Knee Chief Complaint The Chief Complaint is: RT Knee pain. Referred Here Referred by Dr. Kapoor. History of Present Illness Raman Rees is a 16 year old female. - Symptoms tylenol makes the pain better, weight baring makes the pain worse. - Allergy list reviewed - Problem list reviewed - Medication list reviewed - Medication list reviewed with family member - Previous history of new onset pain 11/06/2022 Injury is not work related or an automotive accident - Sudden onset - Pain is constant (100% of the time) - Patient pain level from 1-10: 8 Medications used for this condition: Patient injured her right knee on Tuesday11/06/22 she feels that she possibly dislocated her patella she has had this happen before on the left knee she is unable to bear weight using crutches she been using a patellar J brace she is having difficulty straightening out the right knee Current Medication - None Past Medical/Surgical History Reported: History of Fractures. Diagnoses: Asthma Heartburn / Acid Reflux Past medical and surgical history non-contributory. Social History Not a current smoker. Current diet: No recent change in diet. No recent change in diet. Caffeine use: No caffeine use. Tobacco use: No tobacco use and not a current smoker. Tobacco non-user. Never smoked. Smoking status: Never smoker. Alcohol: Not using alcohol. Never drank alcohol. Drug Use: Not using drugs. Never used drugs. Habits: Not exercising regularly. Allergies - No Known Allergies Family History Cancer Diabetes mellitus Systemic hypertension Maternal: Cancer Cancer Paternal grandfather's: Systemic hypertension Paternal grandmother's: Systemic hypertension Maternal grandfather's: Systemic hypertension Maternal grandmother's: Cancer Systemic hypertension Diabetes mellitus Review Of Systems Systemic: No symptoms, not feeling tired, no recent weight loss, and no recent weight gain. No edema. Head: No headache and no sinus pain. Eyes: No vision problems and no glaucomatous visual field defect. No Cataracts, no Glasses/Contacts, and no Glaucoma. Otolaryngeal: No hearing loss and no tinnitus. No nasal symptoms. Cardiovascular: No chest pain or discomfort, no palpitations, no Hypertension, and no High Cholesterol. Pulmonary: Daytime asthma symptoms. No cough and no chronic cough. No wheezing. Gastrointestinal: No heartburn and no abdominal pain. No Indigestion, no Acid Reflux, no Peptic Ulcer, no GI Stomach Bleed, and no Ulcers. Endocrine: No hot flashes, no muscle weakness, no Diabetes, no Hypothyroid, and no Hyperthyroid. Hematologic: No easy bleeding, no tendency for easy bruising, and no Anemia. Musculoskeletal: No Arthritis and no lower back pain. No soft tissue swelling and no localized joint pain. Neurological: No dizziness, no convulsions, and no numbness. Psychological: No anxiety. Anxiety. No emotional lability, no depression, and no insomnia. Not crying for no reason. Skin: Dry skin. No Ulcers, no Scars, no rash, and no ulcers. Allergic and Immunologic: Complaint of seasonal allergic reaction. Physical Findings - Vitals taken 11/08/2022 01:35 pm MG BP-Sitting 109/48 mmHg Pulse Rate-Sitting 77 bpm Height 64 in Weight 100 lbs Body Mass Index 17.2 kg/m2 BMI Percentile 3.4 % Body Surface Area 1.5 m2 Crutches to walk with some swelling with the right knee she is tender along the medial joint line she lacks about 30 degrees of extension flexion is to about 40 with pain stable varus valgus Zoila hard to do Michelle on her due to pain negative patellar apprehension Tests Outside facility x-rays of her right knee were negative 1 view sunrise was negative 11/08/22 Assessment Right knee pain possible meniscus tear versus patella subluxation or MPFL tear Previous Tests Imaging: X-Ray: An X-ray was performed 11/20/2015 [facility] Ur[facility] Treatment. An X-ray was performed. Therapy - Clinical summary provided to patient. Plan Patient was seen by myself Tan Carrizales PA-C. 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 work Notes This dictation was done with voice recognition software and may contain errors and omissions. Practice Management Use of tobacco assessment performed. Care Team - BLADIMIR Madsen
--- OUTSIDE RECORDS SUMMARY | 2024-01-29 13:18 | XMS_ITS | Clinical Summary ---
Author Name Unknown Address [address] [place] [address] [address] [place] [address] Phone Organization [facility] Address [address] [place], [place] [address] [address] [place] [address] Phone Care Team Providers Care Gi Asst Name Role Phone Unavailable Unavailable Conditions or Problems No information available. Medications No information available. Medications Administered No information available. Allergies, Adverse Reactions, Alerts No information available. Results No information available. Plan of Care No information available. Procedures No information available. Vital Signs No information available. Immunizations No information available. Advance Directives No information available.
--- OUTSIDE RECORDS SUMMARY | 2024-01-29 13:18 | XMS_ITS | Clinical Summary ---
Author Name Unknown Address [address] [place] [address] [place] [address] Phone Organization [facility] , [facility] Address [address] [place] [address] Phone Care Team Providers Care Sub Plant Manager Name Role Phone Tan Lainez MD Unavailable [phone] Josiah CASTILLO, Wong Unavailable [phone] Reason for Visit and Chief Complaint The Chief Complaint is: RT Knee pain Problems Includes: Problems addressed during this encounter and other active Problems All Visits Onset Date Resolved Date Provider Condition S tatus Joint Pain in the Left Knee 11/08/2022 Tan Carrizales PA-C Active Last Documented On 3 1:31PM ; [facility] Bone Pain in the Left Foot 11/20/2015 Devante Solomon MD Active Last Documented On 6 2:37PM ; [facility] Plan of Treatment patient needs to focus on low-impact glued activation exercises core strengthening and hip flexor stretching will give her a program to work on at home we will see her back in 2 months to see how she is progressing - Last Documented On 02/28/2023 1:57PM ; [facility], [facility] Assessments Includes: Assessments from this encounter Findings anterior knee pain right greater than left with patella tendinitis - Last Documented On 02/28/2023 1:57PM ; [facility] Medical Equipment - Implanted Devices Includes: Current Devices No Medical Equipment Recorded Medications Includes: Medications discussed during this encounter and other current Medications Past Medications on file Dexamethasone Sodium Phospha te 4 MG/ML Injection Solution 11/30/2022 - 12/30/2022 Provider: Wong mao MD Diagnosis: use as directed- to be used by physical therapy Last Documented On 3 10:45AM By Orly Eastman ; [facility], [facility] Medications Administered Includes: Administered Medications from this encounter No Administered Medications Recorded Vital Signs Includes: Vital Signs from this encounter Vital Name 02/24/2023 03:18P Height (in) 64 Weight (lb) 100 Body Mass Index 17.2 BMI Percentile (percentile) 1 Body Surface Area 1.5 Note: ba Last Documented: On 02/24/2023 3:18PM ; [facility] Results Includes: Results discussed during this encounter No Results Recorded For Specified Dates History of Present Illness Includes: History of Present Illness from this encounter WAQAR Rees is an 17 year old female. - Symptoms tylenol makes [...] 1-10: 8 Medications used for this condition: patient presents with still some anterior knee pain PT was doing a lot of significant lunges and squats that seemed to make her symptoms worse at this point she is trying to rest the knee and rest seems to have helped Social History Description Last Updated Tobacco non-user 11/08/2022 Last Documented On 3 3:14PM ; [facility], [facility] No recent change in diet 11/08/2022 Last Documented On 3 3:14PM ; [facility], [facility] Not a current smoker. 11/08/2022 Last Documented On 3 3:14PM ; [facility], [facility] Never drank alcohol 11/08/2022 Last Documented On 3 3:14PM ; [facility], [facility] Never smoked 11/08/2022 Last Documented On 3 3:14PM ; [facility], [facility] Never used drugs 11/08/2022 Last Documented On 3 3:14PM ; [facility], [facility] No tobacco use 11/20/2015 Last Documented On 3 3:14PM ; [facility], [facility] Smoking status : Never smoker 11/20/2015 Last Documented On 3 3:14PM ; [facility], [facility] No caffeine use 11/20/2015 Last Documented On 3 3:14PM ; [facility], [facility] No recent change in diet 11/20/2015 Last Documented On 3 3:14PM ; [facility], [facility] Not a current smoker 11/20/2015 Last Documented On 3 3:14PM ; [facility], [facility] Not exercising regularly 11/20/2015 Last Documented On 3 3:14PM ; [facility] Not using alcohol 11/20/2015 Last Documented On 3 3:14PM ; [facility], [facility] Not using drugs 11/20/2015 Last Documented On 3 3:14PM ; [facility], [facility] Procedures and Surgical History Includes: Procedures from this encounter Procedures Code Diagnosis Performing Provider Service L ocation Service Date use of tobacco assessment performed 1000F Last Documented On 3 3:14PM ; [facility], [facility] Clinical summary provided to patient Last Documented On 3 3:14PM ; [facility] 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 Includes: 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 addressed during this encounter Description Last Updated History of asthma 11/08/2022 Last Documented On 3 3:14PM ; [facility] History of Fractures 11/08/2022 Last Documented On 3 3:14PM ; [facility], [facility] History of Heartburn / Acid Reflux 11/08 Last Documented On 3 3:14PM ; [facility], [facility] Past medical and surgical history non-co ntributory 11/20/2015 Last Documented On 3 3:14PM ; [facility], [facility] Family History Includes: Family History addressed during this encounter Description Last Updated Diabetes mellitus 11/08/2022 Last Documented On 3 3:14PM ; [facility], [facility] Family history of cancer 11/08/2022 Last Documented On 3 3:14PM ; [facility], [facility] Family history of systemic hypertension 11/08/2022 Last Documented On 3 3:14PM ; [facility] Maternal grandfather's history of system ic hypertension 11/08/2022 Last Documented On 3 3:14PM ; [facility] Maternal grandmother's history of diabet es mellitus 11/08/2022 Last Documented On 3 3:14PM ; [facility] Maternal grandmother's history of family history of cancer 11/08/2022 Last Documented On 3 3:14PM ; [facility] Maternal grandmother's history of system ic hypertension 11/08/2022 Last Documented On 3 3:14PM ; [facility] Maternal history of family history of ca ncer 11/08/2022 Last Documented On 3 3:14PM ; [facility] Paternal grandfather's history of system ic hypertension 11/08/2022 Last Documented On 3 3:14PM ; [facility] Paternal grandmother's history of system ic hypertension 11/08/2022 Last Documented On 3 3:14PM ; [facility], [facility] Review of Systems Includes: Review of Systems [...] Encounters Encounter Provider Location Date Check-In Time Check- Out Time Diagnosis Follow Up Wong Rahman MD [facility] 3 3:12PM 3:35PM Insurance Includes: Active Insurance Policies Plan Name Member ID Group # Subscriber Relationship Effect alexis Dates 1 - [employer] [id number] LILIANA DOMINGUEZ 3 - Unknown Clinical Notes Includes: Clinical Notes from this encounter * Progress note Date Encounter Last Documented by 02/24/2023 Follow Up Last documented on 02/28/2023; 1:57 PM, Wong Rahman MD; [facility], [facility] Active Problems & Conditions - Bone Pain in the Left Foot - Joint Pain in the Left Knee Chief Complaint The Chief Complaint is: RT Knee pain. Referred Here Referred by Dr. Kapoor. History of Present Illness Raman Rees is an 17 year old female. - Symptoms tylenol makes [...] 1-10: 8 Medications used for this condition: patient presents with still some anterior knee pain PT was doing a lot of significant lunges and squats that seemed to make her symptoms worse at this point she is trying to rest the knee and rest seems to have helped Current Medication - None Past Medical/Surgical History [...] Cancer Diabetes mellitus Systemic hypertension Maternal: Cancer Paternal grandfather's: Systemic hypertension Paternal grandmother's: [...] allergic reaction. Physical Findings - Vitals taken 02/24/2023 03:18 pm ba Height 64 in 60 - 75 Weight 100 lbs 98 - 183 Body Mass Index 17.2 kg/m2 BMI Percentile 1 % Body Surface Area 1.5 m2 right knee shows no effusion with full extension 135- flexion normal stability patella tracking is normal there is no Michelle sign there is tenderness about the parapatellar soft tissues anteriorly Assessment anterior knee pain right greater than left with patella tendinitis Therapy - Clinical summary provided to patient. Plan patient needs to focus on low-impact glued activation exercises core strengthening and hip flexor stretching will give her a program to work on at home we will see her back in 2 months to see how she is progressing Notes This dictation was done with voice recognition software and may contain errors and omissions. Practice Management Use of tobacco assessment performed. Care Team - Tan Lainez MD - TRAVEL DIRECTOR
--- OUTSIDE RECORDS SUMMARY | 2024-01-29 13:18 | XMS_ITS | Clinical Summary ---
Author Name Unknown Address [address] [place] [address] Phone Organization [facility] , [facility] Address [address] [place] [address] Phone Care Team Providers Care Protection Consultant Name Role Phone Migel CASTILLO, Tan Sarah Unavailable [phone] Josiah CASTILLO, Wong Unavailable [phone] Reason for Visit and Chief Complaint The Chief Complaint is: RT Knee pain Problems Includes: Problems addressed during this encounter and other active Problems All Visits Onset Date Resolved Date Provider Condition S tatus Joint Pain in the Left Knee 11/08/2022 Tan Carrizales PA-C Active Last Documented On 3 1:31PM ; [facility] Bone Pain in the Left Foot 11/20/2015 Devante Solomon MD Active Last Documented On 6 2:37PM ; [facility] Plan of Treatment Patient is showing significant improvement I recommend PT for strengthening low impact and then monitor her progress we will see her back in 2 to 3 weeks to make sure she is improving the stiffly no mechanical locking all there is joint line pain it is probably related to the bone bruise and should continue to improve we will see her back in 3 weeks for recheck would not would hold on any surgery at this time if her symptoms change then arthroscopy may be warranted in the future depending on her progress we discussed this with the patient and her mother they agree we will go and see her back in 3 weeks after period of physical therapy ice and nonsteroidal anti-inflammatory - Last Documented On 11/19/2022 2:17PM ; [facility] Assessments Includes: Assessments from this encounter Findings Bone bruise right knee with possible partial meniscus tear medial - Last Documented On 11/19/2022 2:17PM ; [facility], [facility] Medical Equipment - Implanted Devices Includes: Current Devices No Medical Equipment Recorded Medications Includes: Medications discussed during this encounter and other current Medications Past Medications on file Dexamethasone Sodium Phospha te 4 MG/ML Injection Solution 11/30/2022 - 12/30/2022 Provider: Wong mao MD Diagnosis: use as directed- to be used by physical therapy Last Documented On 10:45AM By Orly Eastman ; [facility], [facility] Medications Administered Includes: Administered Medications from this encounter No Administered Medications Recorded Vital Signs Includes: Vital Signs from this encounter Vital Name 11/16/2022 11:40A Blood Pressure Sitting (mmHg) 99/80 Height (in) 64 Weight (lb) 100 Body Mass Index 17.2 BMI Percentile (percentile) 3.4 Body Surface Area 1.5 Note: am Last Documented: On 11/16/2022 11:40A M ; [facility], [facility] Results Includes: Results discussed [...] 8 Medications used for this condition: Patient is 10 days out from an injury in wrestling when another competitor fell on the medial aspect of her right knee at that time she had severe pain and limitation of motion MRI was done which showed small amount of signal in the posterior horn of the medial meniscus but difficult to tell if there is a tear there is also bone bruise laterally and medially but otherwise the patient is shown some improvement in the last 10 days since the injury is still using crutches for weightbearing partial weightbearing but is improved in terms of swelling and weightbearing now with minimal assistance Social History Description Last Updated Tobacco non-user 11/08/2022 Last Documented On 3 11:14AM ; [facility], [facility] No recent change in diet 11/08/2022 Last Documented On 3 11:14AM ; [facility] Not a current smoker. 11/08/2022 Last Documented On 3 11:14AM ; [facility] Never drank alcohol 11/08/2022 Last Documented On 3 11:14AM ; [facility] Never smoked 11/08/2022 Last Documented On 3 11:14AM ; [facility] Never used drugs 11/08/2022 Last Documented On 3 11:14AM ; [facility] No tobacco use 11/20/2015 Last Documented On 3 11:14AM ; [facility] Smoking status : Never smoker 11/20/2015 Last Documented On 3 11:14AM ; [facility] No caffeine use 11/20/2015 Last Documented On 3 11:14AM ; [facility], [facility] No recent change in diet 11/20/2015 Last Documented On 3 11:14AM ; [facility] Not a current smoker 11/20/2015 Last Documented On 3 11:14AM ; [facility] Not exercising regularly 11/20/2015 Last Documented On 3 11:14AM ; [facility] Not using alcohol 11/20/2015 Last Documented On 3 11:14AM ; [facility] Not using drugs 11/20/2015 Last Documented On 3 11:14AM ; [facility], [facility] Procedures and Surgical History Includes: Procedures from this encounter Procedures Code Diagnosis Performing Provider Service L ocation Service Date use of tobacco assessment performed 1000F Last Documented On 3 11:14AM ; [facility], [facility] Clinical summary provided to patient Last Documented On 3 11:14AM ; [facility], [facility] 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 Includes: 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 addressed during this encounter Description Last Updated History of asthma 11/08/2022 Last Documented On 3 11:14AM ; [facility] History of Fractures 11/08/2022 Last Documented On 3 11:14AM ; [facility], [facility] History of Heartburn / Acid Reflux 11/08 Last Documented On 3 11:14AM ; [facility], [facility] Past medical and surgical history non-co ntributory 11/20/2015 Last Documented On 3 11:14AM ; [facility], [facility] Family History Includes: Family History addressed during this encounter Description Last Updated Diabetes mellitus 11/08/2022 Last Documented On 3 11:14AM ; [facility], [facility] Family history of cancer 11/08/2022 Last Documented On 3 11:14AM ; [facility], [facility] Family history of systemic hypertension 11/08/2022 Last Documented On 3 11:14AM ; [facility] Maternal grandfather's history of system ic hypertension 11/08/2022 Last Documented On 3 11:14AM ; [facility] Maternal grandmother's history of diabet es mellitus 11/08/2022 Last Documented On 3 11:14AM ; [facility] Maternal grandmother's history of family history of cancer 11/08/2022 Last Documented On 3 11:14AM ; [facility], [facility] Maternal grandmother's history of system ic hypertension 11/08/2022 Last Documented On 3 11:14AM ; [facility] Maternal history of family history of ca ncer 11/08/2022 Last Documented On 3 11:14AM ; [facility], [facility] Paternal grandfather's history of system ic hypertension 11/08/2022 Last Documented On 3 11:14AM ; [facility], [facility] Paternal grandmother's history of system ic hypertension 11/08/2022 Last Documented On 3 11:14AM ; [facility] Review of Systems Includes: [...] Time Diagnosis Follow Up Wong Rahman MD [facility] 3 11:13AM 12:04PM Insurance Includes: Active Insurance Policies Plan Name Member ID Group # Subscriber Relationship Effect alexis Dates 1 - [facility] [employer] [id number] LILIANA DOMINGUEZ 3 - Unknown Clinical Notes Includes: Clinical Notes from this encounter * Progress note Date Encounter Last Documented by 11/16/2022 Follow Up Last documented on 11/19/2022; 2:17 PM, Wong Rahman MD; [facility], [facility] Active Problems & Conditions [...] 8 Medications used for this condition: Patient is 10 days out from an injury in wrestling when another competitor fell on the medial aspect of her right knee at that time she had severe pain and limitation of motion MRI was done which showed small amount of signal in the posterior horn of the medial meniscus but difficult to tell if there is a tear there is also bone bruise laterally and medially but otherwise the patient is shown some improvement in the last 10 days since the injury is still using crutches for weightbearing partial weightbearing but is improved in terms of swelling and weightbearing now with minimal assistance Current Medication - None Past Medical/Surgical History [...] allergic reaction. Physical Findings - Vitals taken 11/16/2022 11:40 am am BP-Sitting 99/80 mmHg 100 - 120/56 - 80 Height 64 in 59 - 69 Weight 100 lbs 98 - 183 Body Mass Index 17.2 kg/m2 BMI Percentile 3.4 % Body Surface Area 1.5 m2 Right knee shows full extension 130 Gy flexion there is tenderness over the medial joint line I do not demonstrate out meniscal click but there is pain with Michelle's testing of the posterior medial and posterior anterior lateral anterior medial joint line there is no real effusion today patella tracking is normal rotational and AP drawer testing stability tests are normal Tests MRI shows bone bruises but no definite posterior horn meniscus tear although there is some signal adjacent to the root which could represent a partial root tear but difficult to tell appears that meniscus is mostly intact and symptoms could be masked by the patient's bone bruise Assessment Bone bruise right knee with possible partial meniscus tear medial Therapy - Clinical summary provided to patient. Plan Patient is showing significant improvement I recommend PT for strengthening low impact and then monitor her progress we will see her back in 2 to 3 weeks to make sure she is improving the stiffly no mechanical locking all there is joint line pain it is probably related to the bone bruise and should continue to improve we will see her back in 3 weeks for recheck would not would hold on any surgery at this time if her symptoms change then arthroscopy may be warranted in the future depending on her progress we discussed this with the patient and her mother they agree we will go and see her back in 3 weeks after period of physical therapy ice and nonsteroidal anti-inflammatory Notes This dictation was done with voice recognition software and may contain errors and omissions. Practice Management Use of tobacco assessment performed. Care Team - BLADIMIR Madsen
--- OUTSIDE RECORDS SUMMARY | 2024-01-29 13:18 | XMS_ITS | Clinical Summary ---
Author Name Unknown Address [address] [place] [address] [place] [address] Phone Organization [facility] Address [address] [place] [address] Phone Care Team Providers Care Data Management Specialist Name Role Phone Tan Lainez MD Unavailable [phone] Josiah CASTILLO, Wong Unavailable [phone] Reason for Visit and Chief Complaint The Chief Complaint is: RT Knee pain Problems Includes: Problems addressed during this encounter and other active Problems All Visits Onset Date Resolved Date Provider Condition S tatus Joint Pain in the Left Knee 11/08/2022 Tan Carrizales PA-C Active Last Documented On 3 1:31PM ; [facility] Bone Pain in the Left Foot 11/20/2015 Devante Solomon MD Active Last Documented On 6 2:37PM ; [facility] Plan of Treatment Raman has not responded well to PT in [facility] for strengthening and low impact. She has been using ice and anti-inflammatories as needed for pain which provide temporary mild improvement to her pain. On exam she has anterior, lateral, and medial knee pain that is not improving. I recommended a series of Ortho Lazer treatments to help with healing her bone bruise and decrease her soft tissue pain. Her mother explains that she is unable to travel to [place] due to her job and the cost of travel. We discussed the importance of physical therapy and I recommended that they come to one of our physical therapy locations to include Iontophoresis. We will provide her with a knee brace per her mother's request and she will return for a clinical re-evaluation in 2 weeks. - Last Documented On 12/03/2022 9:39AM ; [facility], [facility] Assessments Includes: Assessments from this encounter No Assessments Recorded Medical Equipment - Implanted Devices Includes: Current Devices No Medical Equipment Recorded Medications Includes: Medications discussed during this encounter and other current Medications New / Renewed during this visit Wong Rahman MD on 11/30/2022 Dexamethasone Sodium Phospha te 4 MG/ML Injection Solution Provider: Wong Rahman MD 30 day supply: 30 mL, 0 refills Diagnosis: use as directed- to be used by physical therapy Pharmacy: [facility] - [address] [place] [address] [address] [place], [address] - Last Documented On 10:45AM By Orly Eastman ; [facility] Medications Administered Includes: Administered Medications from this encounter No Administered Medications Recorded Vital Signs Includes: Vital Signs from this encounter Vital Name 11/30/2022 09:42A Height (in) 64 Weight (lb) 105 Body Mass Index 18 BMI Percentile (percentile) 8.7 Body Surface Area 1.5 Note: mg Last Documented: On 11/30/2022 9:43AM ; [facility] Results Includes: Results discussed during this encounter [...] 1-10: 8 Medications used for this condition: 16-year-old female returns in follow up of an injury in wrestling when another competitor fell on the medial aspect of her right knee, at that time she had severe pain and decreased range of motion. A previous MRI was maintained which showed small amount of signal in the posterior horn of the medial meniscus but difficult to tell if there is a tear. She is no longer using crutches for mobility and is able to walk without assistance. She has been working with physical therapy which has reportedly not been beneficial to her. Today her main complaint is persistent global knee pain that she feels is getting worse. Social History Description Last Updated Tobacco non-user 11/08/2022 Last Documented On 3 9:31AM ; [facility] No recent change in diet 11/08/2022 Last Documented On 3 9:31AM ; [facility] Not a current smoker. 11/08/2022 Last Documented On 3 9:31AM ; [facility] Never drank alcohol 11/08/2022 Last Documented On 3 9:31AM ; [facility] Never smoked 11/08/2022 Last Documented On 3 9:31AM ; [facility] Never used drugs 11/08/2022 Last Documented On 3 9:31AM ; [facility] No tobacco use 11/20/2015 Last Documented On 3 9:31AM ; [facility] Smoking status : Never smoker 11/20/2015 Last Documented On 3 9:31AM ; [facility] No caffeine use 11/20/2015 Last Documented On 3 9:31AM ; [facility] No recent change in diet 11/20/2015 Last Documented On 3 9:31AM ; [facility] Not a current smoker 11/20/2015 Last Documented On 3 9:31AM ; [facility] Not exercising regularly 11/20/2015 Last Documented On 3 9:31AM ; [facility] Not using alcohol 11/20/2015 Last Documented On 3 9:31AM ; [facility] Not using drugs 11/20/2015 Last Documented On 3 9:31AM ; [facility] Procedures and Surgical History Includes: Procedures from this encounter Procedures Code Diagnosis Performing Provider Service L ocation Service Date use of tobacco assessment performed 1000F Last Documented On 3 9:31AM ; [facility] Clinical summary provided to patient Last Documented On 3 9:31AM ; [facility] 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 Includes: 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 addressed during this encounter Description Last Updated History of asthma 11/08/2022 Last Documented On 3 9:31AM ; [facility] History of Fractures 11/08/2022 Last Documented On 3 9:31AM ; [facility] History of Heartburn / Acid Reflux 11/08 Last Documented On 3 9:31AM ; [facility] Past medical and surgical history non-co ntributory 11/20/2015 Last Documented On 3 9:31AM ; [facility] Family History Includes: Family History addressed during this encounter Description Last Updated Diabetes mellitus 11/08/2022 Last Documented On 3 9:31AM ; [facility] Family history of cancer 11/08/2022 Last Documented On 3 9:31AM ; [facility] Family history of systemic hypertension 11/08/2022 Last Documented On 3 9:31AM ; [facility] Maternal grandfather's history of system ic hypertension 11/08/2022 Last Documented On 3 9:31AM ; [facility] Maternal grandmother's history of diabet es mellitus 11/08/2022 Last Documented On 3 9:31AM ; [facility] Maternal grandmother's history of family history of cancer 11/08/2022 Last Documented On 3 9:31AM ; [facility] Maternal grandmother's history of system ic hypertension 11/08/2022 Last Documented On 3 9:31AM ; [facility] Maternal history of family history of ca ncer 11/08/2022 Last Documented On 3 9:31AM ; [facility] Paternal grandfather's history of system ic hypertension 11/08/2022 Last Documented On 3 9:31AM ; [facility] Paternal grandmother's history of system ic hypertension 11/08/2022 Last Documented On 3 9:31AM ; [facility] Review of Systems Includes: Review of [...] Time Diagnosis Follow Up Wong Rahman MD [facility] 3 9:17AM 10:27AM Insurance Includes: Active Insurance Policies Plan Name Member ID Group # Subscriber Relationship Effect alexis Dates 1 - [facility] Insurance [employer] [id number] LILIANA DOMINGUEZ Child 3 - Unknown Clinical Notes Includes: Clinical Notes from this encounter * Progress note Date Encounter Last Documented by 11/30/2022 Follow Up Last documented on 12/03/2022; 9:39 AM, Wong Rahman MD; [facility] Active Problems & Conditions - Bone [...] 1-10: 8 Medications used for this condition: 16-year-old female returns in follow up of an injury in wrestling when another competitor fell on the medial aspect of her right knee, at that time she had severe pain and decreased range of motion. A previous MRI was maintained which showed small amount of signal in the posterior horn of the medial meniscus but difficult to tell if there is a tear. She is no longer using crutches for mobility and is able to walk without assistance. She has been working with physical therapy which has reportedly not been beneficial to her. Today her main complaint is persistent global knee pain that she feels is getting worse. Past Medical/Surgical History Reported: History of Fractures. [...] allergic reaction. Physical Findings - Vitals taken 11/30/2022 09:42 am mg Height 64 in 59 - 69 Weight 105 lbs 98 - 183 Body Mass Index 18 kg/m2 BMI Percentile 8.7 % Body Surface Area 1.5 m2 Right [...] be masked by the patient's bone bruise Therapy - Clinical summary provided to patient. Plan StartCited - Other Dexamethasone Sodium Phosphate 4 MG/ML mL use as directed- to be used by physical therapy, 30 days, 0 refills EndCited Raman has not responded well to PT in [facility] for strengthening and low impact. She has been using ice and anti-inflammatories as needed for pain which provide temporary mild improvement to her pain. On exam she has anterior, lateral, and medial knee pain that is not improving. I recommended a series of Ortho Lazer treatments to help with healing her bone bruise and decrease her soft tissue pain. Her mother explains that she is unable to travel to [place] due to her job and the cost of travel. We discussed the importance of physical therapy and I recommended that they come to one of our physical therapy locations to include Iontophoresis. We will provide her with a knee brace per her mother's request and she will return for a clinical re-evaluation in 2 weeks. Notes Transcribed by Jose Martin Simms, acting as a scribe for Dr. Rahman. This dictation was done with voice recognition software and may contain errors and omissions. Practice Management Use of tobacco assessment performed. Care Team - BLADIMIR Madsen
--- OUTSIDE RECORDS SUMMARY | 2024-01-29 13:18 | XMS_ITS ---
Care Plan - [facility], [facility] Created on: January 29, 2024 Raman Rees : 2005 Sex: Female Author Name Unknown Address [address] [place] [address] [place] [address] Phone Organization [facility] Address [address] [place] [address] Phone Care Team Providers Care Candlemaking Laborer Name Role Phone Migel CASTILLO, Tan Sarah Unavailable [phone] Wong Rahman MD Unavailable [phone]
--- OUTSIDE RECORDS SUMMARY | 2024-01-29 13:18 | XMS_ITS ---
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 Role Phone Tan Lainez MD Unavailable [phone] Josiah CASTILLO, Wong Unavailable [phone] Problems Includes: Active, inactive, and resolved Problems All Visits Onset Date Resolved Date Provider Condition S tatus Joint Pain in the Left Knee 11/08/2022 Tan Carrizales PA-C Active Last Documented On 3 1:31PM ; [facility] Bone Pain in the Left Foot 11/20/2015 Devante Solomon MD Active Last Documented On 6 2:37PM ; [facility] Plan of Treatment No Plan of Treatment Recorded Assessments Includes: Assessments for all patient encounters No Assessments Recorded Medical Equipment - Implanted Devices Includes: Current and historical Devices No Medical Equipment Recorded Medications Includes: Current and historical Medications Past Medications on file Dexamethasone Sodium Phospha te 4 MG/ML Injection Solution 11/30/2022 - 12/30/2022 Provider: Wong mao MD Diagnosis: use as directed- to be used by physical therapy Last Documented On 3 10:45AM By Orly Eastman ; [facility] Medications Administered Includes: Administered Medications in patient's chart No Administered Medications Recorded Vital Signs Includes: Vital Signs from 01/28/2023 through 01/29/2024 Vital Name 02/24/2023 03:18P Height (in) 64 Weight (lb) 100 Body Mass Index 17.2 BMI Percentile (percentile) 1 Body Surface Area 1.5 Note: ba Last Documented: On 02/24/2023 3:18PM ; [facility] Results Includes: Results from 01/28/2023 through 01/29/2024 No Results Recorded For Specified Dates History of Present Illness History of Present Illness not supported for this document type No History of Present Illness Recorded Social History Description Last Updated Tobacco non-user 11/08/2022 Last Documented On 3 3:22PM ; [facility] No recent change in diet 11/08/2022 Last Documented On 3 3:22PM ; [facility] Not a current smoker. 11/08/2022 Last Documented On 3 3:22PM ; [facility] Never drank alcohol 11/08/2022 Last Documented On 3 3:22PM ; [facility] Never smoked 11/08/2022 Last Documented On 3 3:22PM ; [facility] Never used drugs 11/08/2022 Last Documented On 3 3:22PM ; [facility] No tobacco use 11/20/2015 Last Documented On 6 9:31AM ; [facility] Smoking status : Never smoker 11/20/2015 Last Documented On 6 9:31AM ; [facility] No caffeine use 11/20/2015 Last Documented On 6 9:31AM ; [facility] No recent change in diet 11/20/2015 Last Documented On 6 9:31AM ; [facility] Not a current smoker 11/20/2015 Last Documented On 6 9:31AM ; [facility] Not exercising regularly 11/20/2015 Last Documented On 6 9:31AM ; [facility] Not using alcohol 11/20/2015 Last Documented On 6 9:31AM ; [facility] Not using drugs 11/20/2015 Last Documented On 6 9:31AM ; [facility] 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 Includes: 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 in patient's chart Description Last Updated History of asthma 11/08/2022 Last Documented On 3 3:22PM ; [facility] History of Fractures 11/08/2022 Last Documented On 3 3:22PM ; [facility] History of Heartburn / Acid Reflux 11/08 Last Documented On 3 3:22PM ; [facility] Past medical and surgical history non-co ntributory 11/20/2015 Last Documented On 6 9:31AM ; [facility] Family History Includes: Family History in patient's chart Description Last Updated Diabetes mellitus 11/08/2022 Last Documented On 3 3:22PM ; [facility] Family history of cancer 11/08/2022 Last Documented On 3 3:22PM ; [facility] Family history of systemic hypertension 11/08/2022 Last Documented On 3 3:22PM ; [facility] Maternal grandfather's history of system ic hypertension 11/08/2022 Last Documented On 3 3:22PM ; [facility] Maternal grandmother's history of diabet es mellitus 11/08/2022 Last Documented On 3 3:22PM ; [facility] Maternal grandmother's history of family history of cancer 11/08/2022 Last Documented On 3 3:22PM ; [facility] Maternal grandmother's history of system ic hypertension 11/08/2022 Last Documented On 3 3:22PM ; [facility] Maternal history of family history of ca ncer 11/08/2022 Last Documented On 3 3:22PM ; [facility] Paternal grandfather's history of system ic hypertension 11/08/2022 Last Documented On 3 3:22PM ; [facility] Paternal grandmother's history of system ic hypertension 11/08/2022 Last Documented On 3 3:22PM ; [facility] Review of Systems Review of Systems not supported for this document type No Review of Systems Recorded Mental Status Description No anxiety Functional Status No Functional Status Recorded Physical Exam Physical Exam not supported for this document type No Physical Exam Recorded Allergies Includes: Active, inactive, and resolved Allergies No Known Allergies Encounters Includes: Encounters from 01/28/2023 through 01/29/2024 Encounter Provider Location Date Check-In Time Check- Out Time Diagnosis Follow Up Wong Rahman MD [facility] 3 3:12PM 3:35PM Insurance Includes: Active Insurance Policies Plan Name Member ID Group # Subscriber Relationship Effect alexis Dates 1 - [facility] [employer] [id number] LILIANA DOMINGUEZ 3 - Unknown Clinical Notes Includes: Signed Clinical Notes starting from 09/30/2022 * Progress note Date Encounter Last Documented by 02/24/2023 Follow Up Last documented on 02/28/2023; 1:57 PM, Wong Rahman MD; [facility], [facility] Active Problems & Conditions - [...] Care Team - Tan Lainez MD - [facility]
--- OUTSIDE RECORDS SUMMARY | 2024-01-29 13:18 | XMS_ITS | Clinical Summary ---
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 Name Role Phone Tan Lainez MD Unavailable [phone] Josiah CASTILLO, Wong Unavailable [phone] Reason for Visit and Chief Complaint The Chief Complaint is: RT Knee pain Problems Includes: Problems addressed during this encounter and other active Problems All Visits Onset Date Resolved Date Provider Condition S tatus Joint Pain in the Left Knee 11/08/2022 Tan Carrizales PA-C Active Last Documented On 3 1:31PM ; [facility] Bone Pain in the Left Foot 11/20/2015 Devante Solomon MD Active Last Documented On 6 2:37PM ; [facility] Plan of Treatment Patient was seen by myself Tan Carrizales PA-C. Patient will follow up with Dr. Rahman on Tuesday so that mom can have discussion with them to talk about surgery. - Last Documented On 11/10/2022 4:11PM ; [facility] Assessments Includes: Assessments from this encounter Findings Right knee medial meniscus tear - Last Documented On 11/10/2022 4:11PM ; [facility] Medical Equipment - Implanted Devices Includes: [...] 10:45AM By Orly Eastman ; [facility] Medications Administered Includes: Administered Medications from this encounter No Administered Medications Recorded Vital Signs Includes: Vital Signs from this encounter Vital Name 11/10/2022 03:49P Blood Pressure Sitting (mmHg) 105/61 Pulse Rate-Sitting (bpm) 75 Weight (lb) 100 Last Documented: On 11/10/2022 3:50PM ; [facility] Results Includes: Results discussed during [...] Patient injured her right knee on Tuesday11/06/22 her pain is mainly on the medial side of the knee. Today she is here today to review the MRI her mom shows me a video today of how she did get her when she landed on the knee and the match her knee and landed directly on the mat and twisted. Patient still using crutches. Social History Description Last Updated Tobacco non-user 11/08/2022 Last Documented On 3 3:25PM ; [facility] No recent change in diet 11/08/2022 Last Documented On 3 3:25PM ; [facility] Not a current smoker. 11/08/2022 Last Documented On 3 3:25PM ; [facility] Never drank alcohol 11/08/2022 Last Documented On 3 3:25PM ; [facility] Never smoked 11/08/2022 Last Documented On 3 3:25PM ; [facility] Never used drugs 11/08/2022 Last Documented On 3 3:25PM ; [facility], [facility] No tobacco use 11/20/2015 Last Documented On 3 3:25PM ; [facility] Smoking status : Never smoker 11/20/2015 Last Documented On 3 3:25PM ; [facility], [facility] No caffeine use 11/20/2015 Last Documented On 3 3:25PM ; [facility] No recent change in diet 11/20/2015 Last Documented On 3 3:25PM ; [facility] Not a current smoker 11/20/2015 Last Documented On 3 3:25PM ; [facility], [facility] Not exercising regularly 11/20/2015 Last Documented On 3 3:25PM ; [facility] Not using alcohol 11/20/2015 Last Documented On 3 3:25PM ; [facility] Not using drugs 11/20/2015 Last Documented On 3 3:25PM ; [facility] Procedures and Surgical History Includes: Procedures from this encounter Procedures Code Diagnosis Performing Provider Service L ocation Service Date use of tobacco assessment performed 1000F Last Documented On 3 3:25PM ; [facility] Clinical summary provided to patient Last Documented On 3 3:25PM ; [facility] 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 Includes: 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 addressed during this encounter Description Last Updated History of asthma 11/08/2022 Last Documented On 3 3:25PM ; [facility] History of Fractures 11/08/2022 Last Documented On 3 3:25PM ; [facility] History of Heartburn / Acid Reflux 11/08 Last Documented On 3 3:25PM ; [facility] Past medical and surgical history non-co ntributory 11/20/2015 Last Documented On 3 3:25PM ; [facility] Family History Includes: Family History addressed during this encounter Description Last Updated Diabetes mellitus 11/08/2022 Last Documented On 3 3:25PM ; [facility] Family history of cancer 11/08/2022 Last Documented On 3 3:25PM ; [facility] Family history of systemic hypertension 11/08/2022 Last Documented On 3 3:25PM ; [facility] Maternal grandfather's history of system ic hypertension 11/08/2022 Last Documented On 3 3:25PM ; [facility] Maternal grandmother's history of diabet es mellitus 11/08/2022 Last Documented On 3 3:25PM ; [facility] Maternal grandmother's history of family history of cancer 11/08/2022 Last Documented On 3 3:25PM ; [facility] Maternal grandmother's history of system ic hypertension 11/08/2022 Last Documented On 3 3:25PM ; [facility] Maternal history of family history of ca ncer 11/08/2022 Last Documented On 3 3:25PM ; [facility] Paternal grandfather's history of system ic hypertension 11/08/2022 Last Documented On 3 3:25PM ; [facility] Paternal grandmother's history of system ic hypertension 11/08/2022 Last Documented On 3 3:25PM ; [facility], [facility] Review of Systems Includes: Review [...] Time Check- Out Time Diagnosis Follow Up Tan Carrizales PA-C [facility] 3 3:19PM 4:08PM Insurance Includes: Active Insurance Policies Plan Name Member ID Group # Subscriber Relationship Effect alexis Dates 1 - [employer]uback [id number] LILIANA DOMINGUEZ 3 - Unknown Clinical Notes Includes: Clinical Notes from this encounter * Progress note Date Encounter Last Documented by 11/10/2022 Follow Up Last documented on 11/10/2022; 4:11 PM, Tan Carrizales PA-C; [facility], [facility] Active Problems & Conditions - [...] Patient injured her right knee on Tuesday11/06/22 her pain is mainly on the medial side of the knee. Today she is here today to review the MRI her mom shows me a video today of how she did get her when she landed on the knee and the match her knee and landed directly on the mat and twisted. Patient still using crutches. Current Medication - None Past Medical/Surgical History [...] allergic reaction. Physical Findings - Vitals taken 11/10/2022 03:49 pm BP-Sitting 105/61 mmHg Pulse Rate-Sitting 75 bpm Weight 100 lbs Crutches to walk with Tenderness palpation of the medial joint line of the left knee has some swelling with the left knee she can almost now get full extension flexion is to about 110 stable varus and valgus some pain with Michelle Tests Outside facility x-rays of her right knee were negative 1 view sunrise was negative 11/08/22 MRI [facility] was not read as medial meniscus tear but I believe she does have medial meniscus tear of the posterior horn her signal in that meniscus Assessment Right knee medial meniscus tear Therapy - Clinical summary provided to patient. Plan Patient was seen by myself Tan Carrizales PA-C. Patient will follow up with Dr. Rahman on Tuesday so that mom can have discussion with them to talk about surgery. Notes This dictation was done with voice recognition software and may contain errors and omissions. This dictation was done with voice recognition software and may contain errors and omissions. Practice Management Use of tobacco assessment performed. Care Team - BLADIMIR Madsen
[2024-01-29 13:36] VITALS: BMI 20.5
[2024-01-29 13:55] LABS: Basophils # 0.1 K/mm3 (0-0.2); Basophils % 0.6 % (0.1-2.0); Eosinophils # 0.1 K/mm3 (0.0-0.4); Lymphocytes # 1.9 K/mm3 (0.7-4.5); Lymphocytes % 24.5 % (10-50); Mean Corpuscular HGB Conc 31.4 g/dL (31.8-35.4); Mean Corpuscular Hemoglobin 24.4 pg (27.0-31.2); Mean Corpuscular Volume 77.9 fl (81-99); Mean Platelet Volume 11.1 fl (7.4-10.4); Monocytes # 0.3 K/mm3 (0.1-1.0); Monocytes % 3.4 % (1.7-9.3); Neutrophils # 5.6 K/mm3 (1.8-7.8); Neutrophils % 70.5 % (37.0-80.0); Platelet Count 317 K/mm3 (142-424); Red Blood Count 4.11 M/mm3 (4.20-5.40); Red Cell Distribution Width 16.3 % (11.5-17.5); White Blood Count 7.9 K/mm3 (4.5-13.0)
[2024-01-29] MEDS: miSOPROStol 100MCG TABLET 50 MCG PO ×2 (14:03→21:28)
[2024-01-29 14:20] VITALS: BP 112/62; PULSE 89; RESP 20; TEMP 36.8; O2SAT 98; BMI 21.4
[2024-01-29 17:43] LABS: Amphetamine/Metha Screen,Urine Negative ng/ml (<1000)
[2024-01-29 17:44] LABS: Barbiturates Screen,Urine Negative ng/ml (<200); Benzodiazepines Screen,Urine Negative ng/ml (<200)
[2024-01-29 17:45] LABS: Cannabinoid Screen,Urine Negative ng/ml (<50); Cocaine Screen,Urine Negative ng/ml (<300)
[2024-01-29 17:46] LABS: Methadone Screen,Urine Negative ng/ml (<300)
[2024-01-29 17:47] LABS: Opiate Screen,Urine Negative ng/ml (<300); Phencyclidine Screen,Urine Negative ng/ml (<25)
[2024-01-29 17:57] LABS: Microscopic, Urine URINE MICROSCOPIC (MICROSCOPIC)
[2024-01-29 18:04] LABS: Appearance,Urine CLEAR (Clear); Bilirubin,Urine Negative (Negative); Blood, Urine Negative (Negative); Color,Urine YELLOW (Yellow); Glucose,Urine (UA) Negative (Negative); Ketones,Urine Negative (Negative); Leukocyte Esterase,Urine 1+ (Negative); Nitrate,Urine Negative (Negative); Protein,Urine Negative (Negative); Urobilinogen,Urine 0.2 EU/dl (0.2)
[2024-01-29 18:21] LABS: Bacteria,Urine Trace /lpf; RBC,Urine Occasional #/hpf (0-3)
[2024-01-29 20:14] VITALS: BP 125/87; PULSE 78; RESP 17; TEMP 37; O2SAT 99
[2024-01-29] MEDS: BUTORPHANOL TARTRATE 2 MG/ML VIAL 1 MG IV (23:31)
[2024-01-30 03:39] VITALS: BP 133/92; PULSE 71; RESP 18; TEMP 36.4; O2SAT 97
[2024-01-30] MEDS: BUTORPHANOL TARTRATE 2 MG/ML VIAL 1 MG IV (03:55)
[2024-01-30] MEDS: miSOPROStol 100MCG TABLET 50 MCG PO (04:01)
[2024-01-30] MEDS: DEXTROSE 5%-LACTATED RINGERS 1,000 ML 125 ML IV (05:20)
[2024-01-30] MEDS: CLINDAMYCIN PHOSPHATE/D5W 900 MG/50 ML PIGGYBACK 100 MG IV (05:20)
[2024-01-30] MEDS: LACTATED RINGERS 1000ML 1,000 ML 250 ML IV (05:55)
--- NOTE | 2024-01-30 07:27 | P.CONPHA_ITS ---
Pharmacy Intervention Comments: MEDICATION RECONCILIATION COMPLETED ON PATIENT USING EXTERNAL FILL HISTORY FROM PHARMACY AND LIST FROM [facility]. -BLANCA SERRANOD
--- NOTE | 2024-01-30 07:27 | HMH.PHAINT1 ---
Pharmacy Intervention Comments: MEDICATION RECONCILIATION COMPLETED ON PATIENT USING EXTERNAL FILL HISTORY FROM PHARMACY AND LIST FROM [facility]. -BLANCA SERRANOD
[2024-01-30] MEDS: OXYTOCIN/RINGERS LACTATE 30 UNITS/500 ML BAG 40 UNITS IV (07:45)
[2024-01-30] MEDS: METHYLERGONOVINE MALEATE 0.2MG/ML INJ 0.200000000000000011 MG IM (07:50)
--- NOTE | 2024-01-30 08:00 | EXP.OB.APHP ---
OB - H&P: HPI Antepartum History of Present Illness Chief complaint: Scheduled elective induction of labor History of present illness: Ms Raman Rees is a 18 yo at 39w1d who presents to [facility] Labor and Delivery for scheduled elective induction of labor. She has had good care. complicated by HSV-1 and GBS bactiuria. She reports good movement. No leakage of fluid or vaginal bleeding. History of Present Criteria for establishing EDC:: based on 1st trimester US only care: good care Ultrasounds: normal mid trimester US Obstetrical complications: none Medical complications: none Labs Blood type: A (+) positive Rubella: immune RPR/VDRL: nonreactive GBS status: positive HBsAG: negative PFSH PFS Disclaimer: The information contained in this section may have been updated after the patient was seen, as this information can be updated by other users. 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 (Updated 01/30/24 @ 08:13 by Rand Pizano DO) Encounter for elective induction of labor 39 weeks gestation of Syncope GBS bacteriuria GERD (gastroesophageal reflux disease) HSV-1 (herpes simplex virus 1) infection Screening for genetic disease carrier status Nausea and vomiting during Sexual behavior with high risk of exposure to communicable disease Allergic rhinitis Chronic ear infection Migraine Surgical History No history of previous surgery Family History Grandmother Cancer, Onset Age: 17 Ovarian Mother Cancer, Onset Age: 18 Ovarian Social History (Updated 01/30/24 @ 04:54 by Niesha Rodas RN) Smoking Status: Current some day smoker alcohol intake: never current occupational status: unemployed Travel in the last 8 weeks: None Review of Systems Review of Systems Review of systems:: pertinent systems reviewed and negative unless documented below Meds Home Medications and Allergies Home Medications Medication Instructions Recorded Confirmed Type PNV 153-FA 400 mcg-om3 35 mg-dha 1 tab PO DAILY 06/22/23 01/30/24 History 25 mg-epa 5 mg-fish oil chew tablet ( Gummies) omeprazole 20 mg capsule,delayed 20 mg PO DAILY 12/26/23 01/30/24 History release ondansetron 4 mg disintegrating 4 mg PO Q6HP PRN Nausea And 01/14/24 01/30/24 History tablet Vomiting acyclovir 200 mg/5 mL oral 400 mg PO DAILY 01/29/24 01/30/24 History suspension New Prescriptions to Start Prescriptions: Allergies Allergy/AdvReac Type Severity Reaction Status Date / Time amoxicillin AdvReac Intermediate Gastrointestinal Verified 01/24/24 10:48 Upset OB - H&P: Exam Physical Exam Vital signs: Temp Pulse Resp BP Pulse Ox O2 Del Method 97.6 F 71 18 133/92 H 97 Room Air 01/30/24 03:39 01/30/24 03:39 01/30/24 03:39 01/30/24 03:39 01/30/24 03:39 01/30/24 03:39 Constitutional no acute distress and cooperative Routine HEENT Exam Head: Present normocephalic and atraumatic Eye: Absent conjunctivae pink ENT: Present mucous membranes moist Routine Neck Exam Present full ROM Routine Respiratory Exam Present CTA bilaterally and normal respiratory effort Routine Cardiovascular Exam Present RRR Routine Abdominal Exam Present soft (Gravid); Absent tenderness Routine Rectal Exam Patient deferred: visual exam Routine Exam External: Present normal urethra appearance; Absent erythema, lesions, ecchymosis or lacerations Routine Extremities Exam Present full ROM; Absent edema or calf tenderness Routine Neurological Exam Present alert, moving all extremities and normal speech Routine Psychiatric Exam Present normal affect and cooperative Detailed Labor and Delivery Exam Dilation (cm): 1 Effacement (%): 60 station: -2 Membranes: intact Baseline heart rate: 135 monitor accelerations: Present monitor decelerations: None long-term variability: Moderate (11-25) Comments: Cervical exam and FHT above were on admission (01/29/24 at 1330) OB - Results Labs Labs: Short CBC 01/29/24 Range/Units 13:48 WBC 7.9 (4.5-13.0) K/mm3 Hgb 10.0 L (12.2-16.2) g/dL Hct 32.0 L (37.0-47.0) % Plt Count 317 (142-424) K/mm3 Urine 01/29/24 Range/Units 15:11 Urine Color Yellow (Yellow) Urine Appearance Clear (Clear) Urine pH 6.0 (5.0-8.5) Ur Specific [place] 1.020 (1.005-1.030) Urine Protein Negative (Negative) Urine Glucose (UA) Negative (Negative) OB - A/P Antepartum (1) 39 weeks gestation of : Status: Acute (2) Encounter for elective induction of labor: Status: Acute (3) GBS bacteriuria: Problem details: Urine culture positive for GBS. She will need abx in labor regardless of RV swab Status: Acute (4) HSV-1 (herpes simplex virus 1) infection: Problem details: vulvovaginal Status: Acute (5) GERD (gastroesophageal reflux disease): Status: Acute (6) Anxiety: Status: Acute Additional Plan Planning to breastfeed?: Yes Plan: expectant management Additional Information:: Admit to [facility] Labor and Delivery for scheduled elective induction of labor Induction of labor with Cytotec followed by Pitocin GBS bactiuria in . She is allergic to Penicillin. Clindamycin given for GBS prophylaxis Close monitoring Anticipate
--- NOTE | 2024-01-30 08:14 | P.PCN_ITS ---
Delivery Note Delivery Date:: 01/30/24 Delivery Time:: 07:42 Anesthesia Type: Epidural Was labor medically induced?: No Induction method: per misoprostol protocol Gestational age (weeks): 39 delivered prior to 39 weeks?: No Gender: Female at 1 minute: 9 at 5 minutes: 9 Delivery Procedure:: Mom complete with epidural. Pushed for approximately 7 minutes. Head delivered spontaneously over intact perineum in KENIA position. No nuchal cord. Anterior shoulder delivered with gentle downward pressure. Posterior shoulder and remainder of body delivered spontaneously. Baby placed on maternal abdomen, mouth and nares bulb suctioned, warmed/dried and stimulated. Delayed cord cl amping was performed for > 60 seconds. Cord was clamped and cut by father of baby. Cord blood was obtained. Placenta delivered spontaneously and intact. Bilateral labial abrasions hemostatic. Mom and baby were skin to skin and doing well after delivery. Live female baby (baby's name is Yifan Otero) APGARs 9 (1 min), 9 (5 min) EBL 300 mL Placental Delivery Description: Spontaneous
--- NOTE | 2024-01-30 11:32 | EXP.ANES.CKL ---
[facility] Disclaimer: The information contained in this section may have been updated after the patient was seen, as this information can be updated by other users. 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 (Updated 01/30/24 @ 08:13 by Rand Pizano DO) Encounter for elective induction of labor 39 weeks gestation of Syncope GBS bacteriuria GERD (gastroesophageal reflux disease) HSV-1 (herpes simplex virus 1) infection Screening for genetic disease carrier status Nausea and vomiting during Sexual behavior with high risk of exposure to communicable disease Allergic rhinitis Chronic ear infection Migraine Surgical History No history of previous surgery Family History Grandmother Cancer, Onset Age: 17 Ovarian Mother Cancer, Onset Age: 18 Ovarian Social History (Updated 01/30/24 @ 04:54 by Niesha Rodas RN) Smoking Status: Current some day smoker alcohol intake: never substance use type: denies use current occupational status: unemployed Travel in the last 8 weeks: None [facility] Anesthesia Checklist Patient Identification Patient Identification: Arm Band and Family Structural Data Admitted From: Home Planned Operative Procedure/s: Labor epideral Consent for Planned Operative Procedure(s) Verified: Yes Verified Documents: Surgical Consent and History and Physical NPO Status Verified Time NPO: 00:00 Additional verifications Patient : Yes Anesthesia Reactions: No Blood Transfusion Reaction: No Cephalosporin Allergy: No Previous Colonoscopy: No Airway Assessment Mallampati Score:: Class I C-Spine Mobility Assessed: Yes TMJ Mobility Assessed: Yes Dentition: Good Dentition Neurological Assessment Level of Consciousness: Awake, Alert, Appropriate and Follows Commands Hx Seizures: No Numbness or tingling in extremities: No Anesthesia Plan ASA Class: I Anesthesia Type: Epidural
[2024-01-30 15:22] VITALS: BP 120/80; PULSE 94; RESP 17; TEMP 36.7; O2SAT 99
[2024-01-30] MEDS: ACYCLOVIR 200 MG/5 ML PO ×2 (15:29→21:30)
[2024-01-30] MEDS: ACETAMINOPHEN 500MG TAB 1000 MG PO (15:29)
[2024-01-31] MEDS: ACETAMINOPHEN 500MG TAB 1000 MG PO (05:52)
[2024-01-31 06:27] LABS: Basophils # 0.1 K/mm3 (0-0.2); Basophils % 0.4 % (0.1-2.0); Eosinophils # 0.1 K/mm3 (0.0-0.4); Eosinophils % 0.6 % (0.1-12.0); Hemoglobin 9.3 g/dL (12.2-16.2); Lymphocytes # 2.5 K/mm3 (0.7-4.5); Lymphocytes % 18.5 % (10-50); Mean Corpuscular HGB Conc 31.2 g/dL (31.8-35.4); Mean Corpuscular Hemoglobin 24.4 pg (27.0-31.2); Mean Platelet Volume 9.5 fl (7.4-10.4); Monocytes # 0.5 K/mm3 (0.1-1.0); Monocytes % 3.8 % (1.7-9.3); Neutrophils # 10.2 K/mm3 (1.8-7.8); Neutrophils % 76.7 % (37.0-80.0); Platelet Count 351 K/mm3 (142-424); Red Blood Count 3.84 M/mm3 (4.20-5.40); Red Cell Distribution Width 16.6 % (11.5-17.5); White Blood Count 13.3 K/mm3 (4.5-13.0)
[2024-01-31 08:18] VITALS: BP 118/70; PULSE 85; RESP 16; TEMP 36.6; O2SAT 97
--- NOTE | 2024-01-31 09:17 | P.PN_ITS ---
Subjective *Date: 01/31/24 *Time: 10:37 Interval history: PPD # 1 s/p Resting this morning. Pain controlled. Breast and formula feeding. Lochia is appropriate. Voiding without difficulty and passing flatus. Tolerating regular diet. Denies fever/chills, chest pain and shortness of breath. No headaches, vision changes, lightheadedness/dizziness. No lower extremity swelling. Ambulating well ad rainer. Medical Exam Vital signs and Labs for Last 24 Hours: Vital Signs Temp Pulse Resp BP Pulse Ox O2 Del Method 01/31/24 08:18 97.9 F 85 16 118/70 97 Room Air 01/30/24 15:22 98.0 F 94 H 17 120/80 99 Room Air Laboratory Results - last 24 hr 01/31/24 05:56: WBC 13.3 H D, RBC 3.84 L, Hgb 9.3 L, Hct 30.0 L, MCV 78.0 L, MCH 24.4 L, MCHC 31.2 L, RDW 16.6, Plt Count 351, MPV 9.5, Neut % (Auto) 76.7, Lymph % (Auto) 18.5, [place] % (Auto) 3.8, Eos % (Auto) 0.6, Baso % (Auto) 0.4, Neut # (Auto) 10.2 H, Lymph # (Auto) 2.5, [place] # (Auto) 0.5, Eos # (Auto) 0.1, Baso # (Auto) 0.1 I & O for Labs for Last 24 Hours: Intake & Output 01/28/24 01/29/24 01/30/24 01/31/24 23:59 23:59 23:59 23:59 Weight 125 lb Head: Present atraumatic and normocephalic ENT: Present mucous membranes moist Neck: Present full ROM Respiratory: Present CTA bilaterally and normal respiratory effort Cardiac: Present Reg Rate and Rhythm GI: Present soft and normal bowel sounds; Absent distention or tenderness Comments:: Uterine fundus firm and below umbilicus Rectal (female): Present deferred (female): Present deferred Extremities: Present normal inspection and full ROM; Absent edema or calf tenderness Neuro: Present alert, awake and moves all extremities Assessment and Plan *Assessment and plan (1) Status post vaginal delivery: Status: Acute Category: Surgical (2) 39 weeks gestation of : Status: Acute Category: Medical Code(s): Z3A.39 - 39 weeks gestation of (3) Encounter for elective induction of labor: Status: Acute Category: Medical Code(s): Z34.90 - Encounter for supervision of normal , unspecified, unspecified trimester (4) GBS bacteriuria: Problem Comment: Urine culture positive for GBS. She will need abx in labor regardless of RV swab Status: Acute Category: Medical Code(s): R82.71 - Bacteriuria (5) HSV-1 (herpes simplex virus 1) infection: Problem Comment: vulvovaginal Status: Acute Category: Medical Code(s): B00.9 - Herpesviral infection, unspecified (6) Anxiety: Status: Acute Category: Medical Code(s): F41.9 - Anxiety disorder, unspecified (7) Acute postoperative anemia due to expected blood loss: Status: Acute Category: Medical Code(s): D62 - Acute posthemorrhagic anemia Plan Continue routine care Encouraged increased ambulation Ferrous sulfate 325 mg PO daily prescribed Plan d/c home PPD # 2
[2024-01-31] MEDS: ACYCLOVIR 200 MG/5 ML PO ×3 (09:37→21:00)
--- NOTE | 2024-02-01 08:37 | P.DS_ITS ---
General Admission date:: 01/29/24 Discharge date: 02/01/24 HPI HPI HPI: PPD # 2 s/p Feeling well. Pain controlled. Breast and formula feeding. Lochia is appropriate. Voiding without difficulty and passing flatus. Tolerating regular diet. Denies fever/chills, chest pain and shortness of breath. No headaches, vision changes, lightheadedness/dizziness. No lower extremity swelling. Ambulating well ad rainer. Hospital Course Hospital Course Hospital Course: Ms Raman Rees is a 18 yo at 39w1d who presented to [facility] Labor and Delivery for scheduled elective induction of labor. She had good care. complicated by HSV-1 and GBS bactiuria. She underwent induction of labor with Cytotec. She had a normal spontaneous vaginal delivery on 01/30/24 at 0742. She delivered a live female baby, Yifan Otero, weighing 6 lb 15 oz. APGARs 9 (1 min), 9 (5 min). EBL 300 mL She did well . Pain controlled. Breast and formula feeding. Light lochia. Voiding without difficulty and passing flatus. Tolerating regular diet. Denies fever/chills, chest pain and shortness of breath. No headaches, dizziness/lightheadedness or vision changes. Vital signs stable, afebrile. Heart regular rate and rhythm. Lungs clear to auscultation. Abdomen soft, nontender. No lower extremity swelling. Ambulating well ad rainer. Normal hospital course. She was discharged to home on POD # 2 with instructions to follow-up in the office in 2 weeks or sooner if needed. Exam Data for Last 24 hours Vital signs and Labs for Last 24 Hours: Temp Pulse Resp BP Pulse Ox O2 Del Method 97.9 F 85 16 118/70 97 Room Air 01/31/24 08:18 01/31/24 08:18 01/31/24 08:18 01/31/24 08:18 01/31/24 08:18 01/31/24 08:18 I & O for Last 24 hours: Intake & Output 01/29/24 01/30/24 01/31/24 02/01/24 23:59 23:59 23:59 23:59 Weight 125 lb Microbiology Reports for the Last 24 Hours: Microbiology 01/29/24 15:11 Urine,Clean Catch Urine Culture - Final Constitutional Constitutional: no acute distress and cooperative *Routine HEENT Exam Head: Present normocephalic and atraumatic Eye: Absent conjunctivae pink ENT: Present mucous membranes moist *Routine Neck Exam Neck: Present full ROM *Routine Respiratory Exam Respiratory: Present CTA bilaterally and normal respiratory effort *Routine Cardiovascular Exam Cardiovascular: Present RRR *Routine Abdominal Exam Abdominal: Present soft; Absent tenderness Comments: Uterine fundus firm and below umbilicus *Routine Rectal Exam Patient deferred: visual exam *Routine Exam Patient deferred: external exam *Routine Extremities Exam Extremities: Present full ROM; Absent edema or calf tenderness *Routine Neurological Exam Neurological: Present alert, moving all extremities and normal speech Routine Psychiatric Exam Psychiatric: Present normal affect and cooperative DS: Diagnosis Discharge Diagnosis (1) Status post vaginal delivery: Status: Acute (2) 39 weeks gestation of : Status: Acute Code(s): Z3A.39 - 39 weeks gestation of (3) Encounter for elective induction of labor: Status: Acute Code(s): Z34.90 - Encounter for supervision of normal , unspecified, unspecified trimester (4) GBS bacteriuria: Status: Acute Code(s): R82.71 - Bacteriuria Problem details: Urine culture positive for GBS. She will need abx in labor regardless of RV swab (5) HSV-1 (herpes simplex virus 1) infection: Status: Acute Code(s): B00.9 - Herpesviral infection, unspecified Problem details: vulvovaginal (6) Anxiety: Status: Acute Code(s): F41.9 - Anxiety disorder, unspecified (7) Acute postoperative anemia due to expected blood loss: Status: Acute Code(s): D62 - Acute posthemorrhagic anemia Meds Home Medications and Allergies Home Medications Medication Instructions Recorded Confirmed Type PNV 153-FA 400 mcg-om3 35 mg-dha 1 tab PO DAILY 06/22/23 01/30/24 History 25 mg-epa 5 mg-fish oil chew tablet ( Gummies) omeprazole 20 mg capsule,delayed 20 mg PO DAILY 12/26/23 01/30/24 History release ondansetron 4 mg disintegrating 4 mg PO Q6HP PRN Nausea And 01/14/24 01/30/24 History tablet Vomiting ibuprofen 800 mg tablet 800 mg PO Q8H PRN pain #20 tabs 02/01/24 Rx New Prescriptions to Start Prescriptions: ibuprofen Rand Pizano Allergies Allergy/AdvReac Type Severity Reaction Status Date / Time amoxicillin AdvReac Intermediate Gastrointestinal Verified 01/24/24 10:48 Upset Discharge Plan Disposition Patient Disposition: Home, Self-Care Condition: Good Discharge Order Discharge Orders: Discharge Order (Routine); Ordered 02/01/24 Ordered By: Rand Pizano Follow up Plan Follow up with: Rand Pizano DO [Staff Physician] - 02/13/24 3:30 pm Prescriptions/Medication Reconciliation: New ibuprofen 800 mg tablet 800 mg PO Q8H PRN (Reason: pain) Qty: 20 0RF Continued Gummies 400 mcg-35 mg- 25 mg-5 mg tablet,chewable 1 tab PO DAILY omeprazole 20 mg Capsule,Delayed Release(Dr/Ec) 20 mg PO DAILY ondansetron 4 mg tablet,disintegrating 4 mg PO Q6HP PRN (Reason: Nausea And Vomiting) Discontinued acyclovir 200 mg/5 mL suspension 400 mg PO DAILY Problem Reconciliation Problems Reviewed?: Yes Patient Discharge Instructions ACTIVITY: Limited activity DIET: continue same diet and regular diet Additional Instructions: Discharge: 1. Take 800 mg Ibuprofen every 8 hours as needed for pain. You can also take 500-1000 mg of Tylenol in between doses, every 6-8 hours. 2. Nothing in the vagina for 6 weeks - no intercourse, douching or tampons. No tub baths/hot tubs or swimming pools 3. Reasons to return to L&D or call On-Call doctor - fever (greater than 100.4) - heavy vaginal bleeding (soaking through 1 pad in less than 2 hours) - vaginal discharge (malodorous and/or purulent) - severe headaches not resolved by medication or rest and leg tenderness/edema 4. depression/blues - Normal to feel anxious/overwhelmed for first 2 weeks - Talk to your doctor if: severe anxiety, trouble bonding with baby, withdrawing from other family members, thoughts of harming yourself or others Rand Pizano DO [facility] [phone] Stand Alone Forms: [facility] Work Release Patient Instructions: Depression, Hemorrhage, DI for Labor and Delivery, Vaginal , DI for Pre-eclampsia, [facility] Post Discharge Instructions Providers Primary Care Provider: Mikayla Carter Admit Provider: Rnad Pizano Attending Provider: Rand Pizano
[2024-02-01] MEDS: ACYCLOVIR 200 MG/5 ML PO (08:57)
[2024-02-01] MEDS: FERROUS SULFATE 325MG TABLET 325 MG PO (08:58)
[2024-02-01 09:00] VITALS: BP 137/85; PULSE 118; RESP 20; TEMP 36.2; O2SAT 99
== END 2024-02-01 10:45 | disposition home or self-care (01) | DRG 807 ==
PROVIDERS: Admitting Provider Obstetrics & Gynecology; PCP Physician Assistant; Visit Provider Obstetrics & Gynecology
DX: O98.52 Other viral diseases complicating childbirth (principal); Z37.0 Single live birth; O99.62 Diseases of the digestive system complicating childbirth; K92.89 Other specified diseases of the digestive system; Z3A.39 39 weeks gestation of pregnancy; K21.9 Gastro-esophageal reflux disease without esophagitis; O99.334 Smoking (tobacco) complicating childbirth; B00.9 Herpesviral infection, unspecified; O99.344 Other mental disorders complicating childbirth; F41.9 Anxiety disorder, unspecified; B95.1 Streptococcus, group B, as the cause of diseases classified elsewhere; R82.71 Bacteriuria
CPT/HCPCS: 59409; 36415; 59025; 80307; 81001; 85025; 86850; 87086; 94761; G0283

== ENCOUNTER 2024-08-05 12:29 | Emergency (ER) | payer OTHER, MEDICAID, SELFPAY ==
[2024-08-05 12:30] VITALS: BP 98/54; PULSE 84; RESP 16; TEMP 36.9; O2SAT 100; BMI 18.6
--- NOTE | 2024-08-05 13:13 | PC.NURSE ---
labs collected and sent to lab
--- NOTE | 2024-08-05 13:29 | PC.NURSE ---
DR GREENE AT BEDSIDE
[2024-08-05 13:30] VITALS: BP 100/62; PULSE 85; O2SAT 98
--- NOTE | 2024-08-05 13:37 | [facility].EDGENADL ---
Discharge Plan Disposition Patient Disposition: Home, Self-Care Prescriptions Prescriptions: No Action acyclovir 200 mg/5 mL suspension 200 mg PO DAILY sertraline 25 mg tablet 25 mg PO DAILY Qty: 30 2RF Nexplanon 68 mg implant 68 mg subdermal ONCE omeprazole 20 mg Capsule,Delayed Release(Dr/Ec) 20 mg PO DAILY Referrals Follow up/Referrals: Mikayla Carter PA [Primary Care Provider] - See instructions Activity Restrictions/Add. Instructions Additional Instructions/Restrictions: No emergent medical condition identified today please take your Zofran that you have at home already. Return with any inability to tolerate fluids by mouth and continue to take Gatorade or Powerade as discussed and return with any significant worsening of your symptoms. Clinical Impressions Clinical Impression: Nausea, Drinking binge, Abdominal pain, Hangover effect Print Language Print Language: French Discharge ED Provider: Jose Martin Stahl General Adult HPI General Chief complaint: Alcohol Stated complaint: dehydrated and weakness Time Seen by Provider: 08/05/24 13:28 Mode of Arrival: Wheelchair Source of Information: Patient Limitations: No Limitations Description of Symptoms (Recalled from ER Triage Doc. by RN): PT C/O HEADACHE AND WEAKNESS AFTER INTAKE OF LARGE AMOUNT ALCOHOL THIS AM [phone]. History of Present Illness HPI narrative: Patient is a 18-year-old female presenting today with multiple complaints after a large consumption of alcohol last night and early this morning. She states she remembers drinking 6 Ty's but does not recall anything after that and blacked out. She woke up around 10 AM this morning had some nausea not a significant mount of vomiting with some abdominal discomfort and some tingling and shakiness. She feels like she is hung over. She denies any history of daily or regular alcohol drinking and states this is her send she has had nothing to drink in a month and a half. Related Data Home Medications ?Medication ?Instructions ?Recorded ?Confirmed omeprazole 20 mg capsule,delayed 20 mg PO DAILY 12/26/23 04/04/24 release acyclovir 200 mg/5 mL oral 200 mg PO DAILY 02/13/24 04/04/24 suspension etonogestrel 68 mg subdermal 68 mg subdermal ONCE 04/04/24 04/04/24 implant (Nexplanon) Previous Rx's ?Medication ?Instructions ?Recorded sertraline 25 mg tablet 25 mg PO DAILY #30 tabs 02/13/24 Allergies Allergy/AdvReac Type Severity Reaction Status Date / Time amoxicillin AdvReac Intermediate Gastrointestinal Verified 04/04/24 14:16 Upset [facility] Disclaimer: The information contained in this section may have been updated after the patient was seen, as this information can be updated by other users. 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 Nexplanon insertion 03/13/24 Depression Sprain of ankle, right Acute postoperative anemia due to expected blood loss Encounter for elective induction of labor 39 weeks gestation of Syncope GBS bacteriuria Urine culture positive for GBS. 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 - no increased risk to have a child with Fragile X but intermediate size repeat alleles can expand to a premutation in future generations Nausea and vomiting during Sexual behavior with high risk of exposure to communicable disease Allergic rhinitis Chronic ear infection Migraine Surgical History Status post vaginal delivery No history of previous surgery Family History Grandmother Cancer, Onset Age: 17 Ovarian Mother Cancer, Onset Age: 18 Ovarian Social History Smoking Status: Current some day smoker alcohol intake: never substance use type: denies use current occupational status: unemployed Travel in the last 8 weeks: None Other 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 Have you received the Flu Vaccine for this season: No Have you received the Pneumonia Vaccine: No ROS Obtained: Yes All systems reviewed & no additional complaints except as documented Physical Exam General General appearance: alert and in no apparent distress Respiratory Respiratory exam: Present normal lung sounds bilaterally; Absent respiratory distress Cardiovascular Cardiovascular exam: Present regular rate and normal rhythm Abdominal Exam Abdominal exam: Present soft; Absent distention or tenderness Neurological Exam Neurological exam: Present alert and oriented X3 Medical Decision Making Medical Records Screening: Per USPSTF and CDC recommendations, given the prevalence of disease in our region, it is our hospital?s policy to screen for HIV and viral Hepatitis for all patients aged 18 and over and those with ongoing risk factors. Mike Inquiry Pt receiving controlled substance: No Vital Signs: 08/05/24 12:30 08/05/24 13:30 08/05/24 14:00 Temperature 98.4 F Temperature Source Oral Pulse Rate 85 83 Pulse Rate [Radial] 84 Respiratory Rate 16 Blood Pressure 100/62 L 99/63 L Blood Pressure [Left Arm] 98/54 L Blood Pressure Mean 68 73 Blood Pressure Mean [Left Arm] 68 Blood Pressure Source [Left Arm] Automatic Cuff Blood Pressure Position [Left Arm] Sitting 02 Sat by Pulse Oximetry 100 98 99 Oxygen Delivery Method Room Air Room Air Room Air 08/05/24 14:19 08/05/24 14:30 Temperature Temperature Source Pulse Rate 89 97 H Pulse Rate [Radial] Respiratory Rate Blood Pressure 100/60 L 97/60 L Blood Pressure [Left Arm] Blood Pressure Mean 73 71 Blood Pressure Mean [Left Arm] Blood Pressure Source [Left Arm] Blood Pressure Position [Left Arm] 02 Sat by Pulse Oximetry 100 100 Oxygen Delivery Method Room Air Room Air Lab Data Lab results reviewed: Yes I reviewed the patient's lab results. Lab Results 08/05/24 13:10: WBC 8.2, RBC 4.62, Hgb 11.1 L, Hct 34.6 L, MCV 75.0 L, MCH 24.0 L, MCHC 32.1, RDW 18.0 H, Plt Count 378, MPV 8.1, Neut % (Auto) 80.0, Lymph % (Auto) 15.1, [place] % (Auto) 3.5, Eos % (Auto) 0.8, Baso % (Auto) 0.5, Neut # (Auto) 6.6, Lymph # (Auto) 1.2, [place] # (Auto) 0.3, Eos # (Auto) 0.1, Baso # (Auto) 0.0, PT 12.5, INR 1.13 H, Sodium 145, Potassium 3.9, Chloride 111 H, Carbon Dioxide 24, Anion Gap 13.9, BUN 12, Creatinine 0.50 L, Estimated Creat Clear 136, Estimated GFR 159, Est GFR ( Amer) 192, Glucose 87, Calcium 9.3, Magnesium 1.9, Total Bilirubin 0.4, AST 37 H, ALT 37, Alkaline Phosphatase 61, Total Protein 7.8, Albumin 4.5, Globulin 3.3 H, Albumin/Globulin Ratio 1.4, Lipase 98, Serum HCG, Qual Negative 08/05/24 13:10 08/05/24 13:10 Orders (Tests/Meds): ED MEDICATIONS Discontinued Medications Generic Name Dose Route Start Last Admin Trade Name Betsy PRN Reason Stop Dose Admin Acetaminophen 1,000 mg 08/05/24 13:59 08/05/24 14:15 Acetaminophen 500mg Tab PO 08/05/24 14:00 Not Given ONCE ONE Acetaminophen 1,000 mg 08/05/24 14:13 08/05/24 14:15 Acetaminophen 325mg/10.15ml Udc PO 08/05/24 14:14 1,000 mg ONCE ONE Administration Lactated Ringer's 1,000 mls @ 999 mls/hr 08/05/24 13:45 08/05/24 13:56 Lactated Ringer's 1000 Ml Bag IV 08/05/24 14:45 999 mls/hr .Q1H1M AYSHA Administration Ondansetron HCl 4 mg 08/05/24 13:32 08/05/24 13:56 Ondansetron 4mg/2ml Vial IV 08/05/24 13:33 4 mg ONCE ONE Administration ORDERS Category Date Time Status CBC w/Auto Diff [Complete Blood Count Auto Diff] Stat Lab 08/05/24 13:10 Completed CMP [Comprehensive Metabolic Panel] Stat Lab 08/05/24 13:10 Completed HCG Qualitative, Serum Stat Lab 08/05/24 13:10 Completed HIV (1&2) Antibody Rapid Stat Lab 08/05/24 13:10 Received Hep C Ab with Reflex to RNA Stat Lab 08/05/24 13:10 Received Lipase Stat Lab 08/05/24 13:10 Completed Magnesium Stat Lab 08/05/24 13:10 Completed PT INR [Prothrombin Time INR] Stat Lab 08/05/24 13:10 Completed Medical Decision Narrative: 18-year-old female presents today with nausea and vomiting and abdominal discomfort after a drinking binge last night. Most likely she is just hung over her abdominal exam is benign however pancreatitis acute liver injury are certainly in the differential as well as electrolyte abnormalities will check basic blood work give IV fluids and IV Zofran and reassess. Reassessment 248 labs unremarkable from emergency standpoint serial abdominal exams are benign she is tolerating p.o. she was discharged in stable condition she states that she has Zofran at home from previous she has been advised to push p.o. fluids with salt and sugar and to return with a significant worsening symptoms. Critical Care Critical Care Time Critical Care Time: No
[2024-08-05 13:54] LABS: Basophils % 0.5 % (0.1-2.0); Eosinophils # 0.1 K/mm3 (0.0-0.4); Eosinophils % 0.8 % (0.1-12.0); Hematocrit 34.6 % (37.0-47.0); Hemoglobin 11.1 g/dL (12.2-16.2); Lymphocytes # 1.2 K/mm3 (0.7-4.5); Lymphocytes % 15.1 % (10-50); Mean Corpuscular HGB Conc 32.1 g/dL (31.8-35.4); Mean Platelet Volume 8.1 fl (7.4-10.4); Monocytes # 0.3 K/mm3 (0.1-1.0); Monocytes % 3.5 % (1.7-9.3); Neutrophils # 6.6 K/mm3 (1.8-7.8); Platelet Count 378 K/mm3 (142-424); Red Blood Count 4.62 M/mm3 (4.20-5.40); White Blood Count 8.2 K/mm3 (4.5-13.0)
[2024-08-05 13:56] LABS: Albumin Level 4.5 g/dl (3.5-5.0); Chloride 111 mmol/L (98-107); Potassium 3.9 mmoL/L (3.5-5.1); Sodium 145 mmol/L (136-145)
[2024-08-05] MEDS: LACTATED RINGERS 1000ML 1,000 ML 999 ML IV (13:56)
[2024-08-05] MEDS: ONDANSETRON 4MG/2ML VIAL 4 MG IV (13:56)
[2024-08-05 13:59] LABS: Alanine Aminotransferase 37 U/L (12-78); Albumin/Globulin Ratio 1.4 (1.1-1.8); Alkaline Phosphatase 61 U/L (38-126); Anion Gap 13.9 mEq/L (5-15); Aspartate Amino Transferase 37 U/L (14-36); Bilirubin,Total 0.4 mg/dl (0.2-1.3); Blood Urea Nitrogen 12 mg/dl (7-17); Calcium 9.3 mg/dl (8.4-10.2); Carbon Dioxide 24 mmol/L (22.0-30.0); Creatinine Clearance Estimated 136 mL/min (50-200); Estimated Glomerular Filt Rate 159 ml/min (>60); GFR (African American) 192 ML/MIN (>60); Globulin 3.3 g/dL (1.3-3.2); Glucose 87 mg/dl (74-100); HCG Qualitative, Serum Negative (Negative); INR 1.13 (0.9-1.1); Prothrombin Time 12.5 seconds (10.1-12.5); Total Protein,Serum 7.8 g/dl (6.3-8.2)
[2024-08-05 14:00] VITALS: BP 99/63; PULSE 83; O2SAT 99
[2024-08-05 14:00] LABS: Lipase 98 U/L (23-300); Magnesium 1.9 mg/dl (1.6-2.3)
[2024-08-05] MEDS: ACETAMINOPHEN 325MG/10.15ML UDC 1000 MG PO (14:15)
[2024-08-05 14:19] VITALS: BP 100/60; PULSE 89; O2SAT 100
[2024-08-05 14:30] VITALS: BP 97/60; PULSE 97; O2SAT 100
[2024-08-05 15:04] VITALS: BP 96/56; PULSE 94; RESP 16; TEMP 36.7; O2SAT 100
[2024-08-05 15:07] LABS: HIV (1&2) Antibody Rapid NONREACTIVE (NONREACTIVE)
[2024-08-07 09:29] LABS: HCV Ab Non Reactive (Non Reactive)
== END 2024-08-05 15:04 | disposition home or self-care (01) ==
PROVIDERS: Emergency Provider Student in an Organized Health Care Education/Training Program; PCP Physician Assistant
DX: F10.129 Alcohol abuse with intoxication, unspecified (principal); R11.2 Nausea with vomiting, unspecified; R51.9 Headache, unspecified; R53.1 Weakness; G25.0 Essential tremor; R10.9 Unspecified abdominal pain; Z78.9 Other specified health status
CPT/HCPCS: 80053; 83690; 83735; 84703; 85025; 85610; 86803; 87389; 96361; 96374; 99283; J2405; J7120

== ENCOUNTER 2024-09-02 13:47 | Emergency (ER) | payer OTHER, MEDICAID, SELFPAY ==
[2024-09-02] VITALS (7 sets, daily range): BP systolic 96–110; BP diastolic 54–78; PULSE 73–81; RESP 16–20; TEMP 36.6–36.8; O2SAT 98–100; BMI 18.0
--- NOTE | 2024-09-02 14:26 | CT_ITS ---
PROCEDURE INFORMATION: Exam: CT Head Without Contrast Exam date and time: 09/02/2024 3:39 PM Age: 18 years old Clinical indication: Pain; Headache TECHNIQUE: Imaging protocol: Computed tomography of the head without contrast. Radiation optimization: All CT scans at this facility use at least one of these dose optimization techniques: automated exposure control; mA and/or kV adjustment per patient size (includes targeted exams where dose is matched to clinical indication); or iterative reconstruction. COMPARISON: CT HEAD/BRAIN WO CON 09/02/2024 3:39 PM FINDINGS: Brain: No evidence for acute transcortical infarct. No mass effect or midline shift. No extra-axial collection. No acute intracranial hemorrhage. Basal cisterns are patent. Cerebral ventricles: No ventriculomegaly. Paranasal sinuses: Visualized sinuses are unremarkable. No fluid levels. Mastoid air cells: Visualized mastoid air cells are well aerated. Bones: Unremarkable. No acute fracture. Soft tissues: Unremarkable. IMPRESSION: Unremarkable exam. No hydrocephalus, acute intracranial hemorrhage, or mass effect.
[2024-09-02 14:47] LABS: Basophils % 0.6 % (0.1-2.0); Eosinophils # 0.1 K/mm3 (0.0-0.4); Eosinophils % 0.9 % (0.1-12.0); Hematocrit 35.3 % (37.0-47.0); Hemoglobin 11.7 g/dL (12.2-16.2); Lymphocytes # 1.1 K/mm3 (0.7-4.5); Mean Corpuscular HGB Conc 33.2 g/dL (31.8-35.4); Mean Corpuscular Hemoglobin 25.2 pg (27.0-31.2); Mean Corpuscular Volume 75.9 fl (81-99); Mean Platelet Volume 7.9 fl (7.4-10.4); Monocytes # 0.2 K/mm3 (0.1-1.0); Monocytes % 3.8 % (1.7-9.3); Neutrophils # 4.2 K/mm3 (1.8-7.8); Neutrophils % 75.7 % (37.0-80.0); Platelet Count 284 K/mm3 (142-424); Red Blood Count 4.65 M/mm3 (4.20-5.40); Red Cell Distribution Width 17.1 % (11.5-17.5); White Blood Count 5.5 K/mm3 (4.5-13.0)
[2024-09-02] MEDS: diphenhydrAMINE 50MG/ML VIAL 25 MG IV (14:50)
[2024-09-02 14:51] LABS: Albumin Level 4.3 g/dl (3.5-5.0); Chloride 107 mmol/L (98-107)
[2024-09-02 14:52] LABS: Potassium 3.9 mmoL/L (3.5-5.1); Sodium 139 mmol/L (136-145)
[2024-09-02 14:54] LABS: Alanine Aminotransferase 21 U/L (12-78); Anion Gap 13.9 mEq/L (5-15); Aspartate Amino Transferase 25 U/L (14-36); Blood Urea Nitrogen 9 mg/dl (7-17); Carbon Dioxide 22 mmol/L (22.0-30.0); Creatinine Clearance Estimated 136 mL/min (50-200); Estimated Glomerular Filt Rate 159 ml/min (>60); GFR (African American) 192 ML/MIN (>60)
[2024-09-02 14:55] LABS: Albumin/Globulin Ratio 1.3 (1.1-1.8); Alkaline Phosphatase 66 U/L (38-126); Bilirubin,Total 0.5 mg/dl (0.2-1.3); Calcium 8.9 mg/dl (8.4-10.2); Globulin 3.4 g/dL (1.3-3.2); Glucose 99 mg/dl (74-100); Total Protein,Serum 7.7 g/dl (6.3-8.2)
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
[2024-09-02 15:24] LABS: HCG Qualitative, Serum Negative (Negative)
[2024-09-02 15:29] LABS: Microscopic, Urine URINE MICROSCOPIC (MICROSCOPIC)
[2024-09-02 15:33] LABS: Appearance,Urine CLEAR (Clear); Bilirubin,Urine Negative (Negative); Blood, Urine Negative (Negative); Color,Urine YELLOW (Yellow); Glucose,Urine (UA) Negative (Negative); Ketones,Urine 2+ (Negative); Leukocyte Esterase,Urine TRACE (Negative); Nitrate,Urine Negative (Negative); Protein,Urine Negative (Negative); Specific Gravity, Urine >= 1.030 (1.005-1.030)
--- NOTE | 2024-09-02 15:34 | PC.NURSE ---
Patient is out of the room, patient is gone to CT.
[2024-09-02 15:46] LABS: Bacteria,Urine 1+ /lpf
== END 2024-09-02 16:30 | disposition home or self-care (01) ==
PROVIDERS: Nurse Practitioner; Emergency Provider Emergency Medicine; PCP Physician Assistant
DX: G43.909 Migraine, unspecified, not intractable, without status migrainosus (principal); H53.149 Visual discomfort, unspecified; R11.0 Nausea
CPT/HCPCS: 70450; 80053; 81001; 84703; 85025; 96374; 99284; J1200; Q0162

== ENCOUNTER 2025-01-23 13:43 | Outpatient (CLI) | payer OTHER, MEDICAID, SELFPAY ==
--- NOTE | 2025-01-23 13:46 | XR_ITS ---
FINAL REPORT CLINICAL HISTORY: Lt Knee Pain COMPARISON: 01/05/2022 FINDINGS: Four views of the left knee were obtained. There is no acute fracture or dislocation. The joint spaces are intact. There is no soft tissue abnormality. IMPRESSION: No acute findings Reviewed, Interpreted and Dictated by Prosper Butt MD Transcribed by Darling Og Authenticated and [facility]
--- OUTSIDE RECORDS SUMMARY | 2025-01-24 22:22 | XMS_ITS | Clinical Summary ---
Author Organization [facility] Address [address] [place] [address] Phone Care Team Providers Care Licensed Embalmer Supervisor Name Role Phone Migel CASTILLO, Tan Sarah Unavailable [phone] Josiah CASTILLO, Wong Unavailable [phone] Reason for Visit and Chief Complaint The Chief Complaint is: RT Knee pain Problems Includes: Problems addressed during this encounter and other active Problems All Visits Onset Date Resolved Date Provider Condition S tatus Joint Pain in the Left Knee 11/08/2022 Tan Carrizales PA-C Active Last Documented On 3 1:31PM ; [facility] Bone Pain in the Left Foot 11/20/2015 Devante Soloomn MD Active Last Documented On 6 2:37PM ; [facility] Plan of Treatment patient needs to focus on low-impact glued activation exercises core strengthening and hip flexor stretching will give her a program to work on at home we will see her back in 2 months to see how she is progressing - Last Documented On 02/28/2023 1:57PM ; [facility] Assessments Includes: Assessments from this encounter Findings anterior knee pain right greater than left with patella tendinitis - Last Documented On 02/28/2023 1:57PM ; [facility], [facility] Medical Equipment - Implanted Devices Includes: Current Devices No Medical Equipment Recorded Medications Includes: Medications discussed during this encounter and other current Medications Past Medications on file Dexamethasone Sodium Phospha te 4 MG/ML Injection Solution 11/30/2022 - 12/30/2022 Provider: Wong mao MD Diagnosis: use as directed- to be used by physical therapy Last Documented On 3 10:45AM By Orly Eastman ; [facility] Medications Administered Includes: Administered Medications from this encounter No Administered Medications Recorded Vital Signs Includes: Vital Signs from this encounter Vital Name 02/24/2023 03:18P Height (in) 64 Weight (lb) 100 Body Mass Index 17.2 BMI Percentile (percentile) 1 Body Surface Area 1.5 Note: ba Last Documented: On 02/24/2023 3:18PM ; [facility] Results Includes: Results discussed during this [...] 11/08/2022 Last Documented On 3 3:14PM ; [facility], [facility] No recent change in diet 11/08/2022 Last Documented On 3 3:14PM ; [facility] Not a current smoker. 11/08/2022 Last Documented On 3 3:14PM ; [facility] Never drank alcohol 11/08/2022 Last Documented On 3 3:14PM ; [facility] Never smoked 11/08/2022 Last Documented On 3 3:14PM ; [facility] Never used drugs 11/08/2022 Last Documented On 3 3:14PM ; [facility] No tobacco use 11/20/2015 Last Documented On 3 3:14PM ; [facility] Smoking status : Never smoker 11/20/2015 Last Documented On 3 3:14PM ; [facility] No caffeine use 11/20/2015 Last Documented On 3 3:14PM ; [facility] No recent change in diet 11/20/2015 Last Documented On 3 3:14PM ; [facility] Not a current smoker 11/20/2015 Last Documented On 3 3:14PM ; [facility] Not exercising regularly 11/20/2015 Last Documented On 3 3:14PM ; [facility] Not using alcohol 11/20/2015 Last Documented On 3 3:14PM ; [facility] Not using drugs 11/20/2015 Last Documented On 3 3:14PM ; [facility] Procedures and Surgical History Includes: Procedures from this encounter Procedures Code Diagnosis Performing Provider Service L ocation Service Date use of tobacco assessment performed 1000F Last Documented On 3 3:14PM ; [facility] Clinical summary provided to patient Last Documented On 3 3:14PM ; [facility] 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 Includes: 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 addressed during this encounter Description Last Updated History of asthma 11/08/2022 Last Documented On 3 3:14PM ; [facility] History of Fractures 11/08/2022 Last Documented On 3 3:14PM ; [facility] History of Heartburn / Acid Reflux 11/08 Last Documented On 3 3:14PM ; [facility] Past medical and surgical history non-co ntributory 11/20/2015 Last Documented On 3 3:14PM ; [facility] Family History Includes: Family History addressed during this encounter Description Last Updated Diabetes mellitus 11/08/2022 Last Documented On 3 3:14PM ; [facility] Family history of cancer 11/08/2022 Last Documented On 3 3:14PM ; [facility] Family history of systemic hypertension 11/08/2022 Last Documented On 3 3:14PM ; [facility] Maternal grandfather's history of system ic hypertension 11/08/2022 Last Documented On 3 3:14PM ; [facility] Maternal grandmother's history of diabet es mellitus 11/08/2022 Last Documented On 3 3:14PM ; [facility] Maternal grandmother's history of family history of cancer 11/08/2022 Last Documented On 3 3:14PM ; [facility] Maternal grandmother's history of system ic hypertension 11/08/2022 Last Documented On 3 3:14PM ; [facility] Maternal history of family history of ca ncer 11/08/2022 Last Documented On 3 3:14PM ; [facility] Paternal grandfather's history of system ic hypertension 11/08/2022 Last Documented On 3 3:14PM ; [facility] Paternal grandmother's history of system ic hypertension 11/08/2022 Last Documented On 3 3:14PM ; [facility] Review of Systems Includes: Review of [...] Time Diagnosis Follow Up Wong Rahman MD [facility] 3 3:12PM 3:35PM Insurance Includes: Active Insurance Policies Plan Name Member ID Group # Subscriber Relationship Effect alexis Dates 1 - [employer] App [id number] LILIANA DOMINGUEZ 3 - Unknown Clinical Notes Includes: Clinical Notes from this encounter * Progress note Date Encounter Last Documented by 02/24/2023 Follow Up Last documented on 02/28/2023; 1:57 PM, Wong Rahman MD; [facility] Active Problems & Conditions - Bone [...] Care Team - Tan Lainez MD - COCOA MILL OPERATOR
--- OUTSIDE RECORDS SUMMARY | 2025-01-24 22:22 | XMS_ITS ---
Care Plan - [facility] Created on: January 24, 2025 Raman Rees : 2005 Sex: Female Author Organization [facility] Address [address] [place] [address] Phone Care Team Providers Care Asbestos Siding Installer Name Role Phone Migel CASTILLO, Tan Sarah Unavailable [phone] Josiah CASTILLO, Wong Unavailable [phone]
--- OUTSIDE RECORDS SUMMARY | 2025-01-24 22:22 | XMS_ITS ---
Author Organization [facility] , [facility] Address [address] [place] [address] Phone Care Team Providers Care Acetone Button Paster Name Role Phone Migel CASTILLO, Tan Sarah Unavailable [phone] Josiah CASTILLO, Wong Unavailable [phone] Problems Includes: Active, inactive, and resolved Problems All Visits Onset Date Resolved Date Provider Condition S tatus Joint Pain in the Left Knee 11/08/2022 Tan Carrizales PA-C Active Last Documented On 3 1:31PM ; [facility] Bone Pain in the Left Foot 11/20/2015 Devante Solomon MD Active Last Documented On 6 2:37PM ; [facility], [facility] Plan of Treatment No Plan of [...] On 3 10:45AM By Orly Eastman ; [facility], [facility] Medications Administered Includes: Administered Medications in patient's chart No Administered Medications Recorded Results Includes: Results from 01/25/2024 through 01/24/2025 No Results Recorded For Specified Dates History of Present Illness History of Present Illness not supported for this document type No History of Present Illness Recorded Social History Description Last Updated Tobacco non-user 11/08/2022 Last Documented On 3 3:22PM ; [facility] No recent change in diet 11/08/2022 Last Documented On 3 3:22PM ; [facility], [facility] Not a current smoker. 11/08/2022 Last Documented On 3 3:22PM ; [facility] Never drank alcohol 11/08/2022 Last Documented On 3 3:22PM ; [facility] Never smoked 11/08/2022 Last Documented On 3 3:22PM ; [facility] Never used drugs 11/08/2022 Last Documented On 3 3:22PM ; [facility] No tobacco use 11/20/2015 Last Documented On 6 9:31AM ; [facility], [facility] Smoking status : Never smoker 11/20/2015 Last Documented On 6 9:31AM ; [facility] No caffeine use 11/20/2015 Last Documented On 6 9:31AM ; [facility], [facility] No recent change in diet 11/20/2015 Last Documented On 6 9:31AM ; [facility], [facility] Not a current smoker 11/20/2015 Last Documented On 6 9:31AM ; [facility], [facility] Not exercising regularly 11/20/2015 Last Documented On 6 9:31AM ; [facility], [facility] Not using alcohol 11/20/2015 Last Documented On 6 9:31AM ; [facility], [facility] Not using drugs 11/20/2015 Last Documented On 6 9:31AM ; [facility], [facility] 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 Includes: 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 in patient's chart Description Last Updated History of asthma 11/08/2022 Last Documented On 3 3:22PM ; [facility], [facility] History of Fractures 11/08/2022 Last Documented On 3 3:22PM ; [facility], [facility] History of Heartburn / Acid Reflux 11/08 Last Documented On 3 3:22PM ; [facility], [facility] Past medical and surgical history non-co ntributory 11/20/2015 Last Documented On 6 9:31AM ; [facility] Family History Includes: Family History in patient's chart Description Last Updated Diabetes mellitus 11/08/2022 Last Documented On 3 3:22PM ; [facility] Family history of cancer 11/08/2022 Last Documented On 3 3:22PM ; [facility] Family history of systemic hypertension 11/08/2022 Last Documented On 3 3:22PM ; [facility] Maternal grandfather's history of system ic hypertension 11/08/2022 Last Documented On 3 3:22PM ; [facility] Maternal grandmother's history of diabet es mellitus 11/08/2022 Last Documented On 3 3:22PM ; [facility] Maternal grandmother's history of family history of cancer 11/08/2022 Last Documented On 3 3:22PM ; [facility] Maternal grandmother's history of system ic hypertension 11/08/2022 Last Documented On 3 3:22PM ; [facility] Maternal history of family history of ca ncer 11/08/2022 Last Documented On 3 3:22PM ; [facility] Paternal grandfather's history of system ic hypertension 11/08/2022 Last Documented On 3 3:22PM ; [facility] Paternal grandmother's history of system ic hypertension 11/08/2022 Last Documented On 3 3:22PM ; [facility] Review of Systems Review of Systems not supported for this document type No Review of Systems Recorded Mental Status Description No anxiety Functional Status No Functional Status Recorded Physical Exam Physical Exam not supported for this document type No Physical Exam Recorded Allergies Includes: Active, inactive, and resolved Allergies No Known Allergies Insurance Includes: Active Insurance Policies Plan Name Member ID Group # Subscriber Relationship Effect alexis Dates 1 - [employer] [id number] LILIANA DOMINGUEZ Child 3 - Unknown Clinical Notes Includes: Signed Clinical Notes starting from 09/30/2022 No Clinical Notes Recorded
--- OUTSIDE RECORDS SUMMARY | 2025-01-24 22:22 | XMS_ITS | Clinical Summary ---
Author Organization [facility] , [facility] Address [address] [place] [address] Phone Care Team Providers Care Telecommunications Network Planner Name Role Phone Migel CASTILLO, Tan Sarah Unavailable [phone] Josiah CASTILLO, Wong Unavailable [phone] Reason for Visit and Chief Complaint The Chief Complaint is: RT Knee pain Problems Includes: Problems addressed during this encounter and other active Problems All Visits Onset Date Resolved Date Provider Condition S tatus Joint Pain in the Left Knee 11/08/2022 Tan Carrizales PA-C Active Last Documented On 3 1:31PM ; [facility] Bone Pain in the Left Foot 11/20/2015 Devante Solomon MD Active Last Documented On 6 2:37PM ; [facility] Plan of Treatment Patient was seen by myself Tan Carrizales PA-C. Patient will follow up with Dr. Rahman on Tuesday so that mom can have discussion with them to talk about surgery. - Last Documented On 11/10/2022 4:11PM ; [facility] Assessments Includes: Assessments from this encounter Findings Right knee medial meniscus tear - Last Documented On 11/10/2022 4:11PM ; [facility] Medical Equipment - Implanted Devices Includes: Current Devices No Medical Equipment Recorded Medications Includes: Medications discussed during this encounter and other current Medications Past Medications on file Dexamethasone Sodium Phospha te 4 MG/ML Injection Solution 11/30/2022 - 12/30/2022 Provider: Wong mao MD Diagnosis: use as directed- to be used by physical therapy Last Documented On 3 10:45AM By Orly Eastman ; [facility] Medications Administered Includes: Administered Medications from this encounter No Administered Medications Recorded Vital Signs Includes: Vital Signs from this encounter Vital Name 11/10/2022 03:49P Blood Pressure Sitting (mmHg) 105/61 Pulse Rate-Sitting (bpm) 75 Weight (lb) 100 Last Documented: On 11/10/2022 3:50PM ; [facility], [facility] Results Includes: Results discussed during [...] Documented On 3 3:25PM ; [facility], [facility] No recent change in diet 11/08/2022 Last Documented On 3 3:25PM ; [facility], [facility] Not a current smoker. 11/08/2022 Last Documented On 3 3:25PM ; [facility], [facility] Never drank alcohol 11/08/2022 Last Documented On 3 3:25PM ; [facility], [facility] Never smoked 11/08/2022 Last Documented On 3 3:25PM ; [facility], [facility] Never used drugs 11/08/2022 Last Documented On 3 3:25PM ; [facility], [facility] No tobacco use 11/20/2015 Last Documented On 3 3:25PM ; [facility], [facility] Smoking status : Never smoker 11/20/2015 Last Documented On 3 3:25PM ; [facility], [facility] No caffeine use 11/20/2015 Last Documented On 3 3:25PM ; [facility], [facility] No recent change in diet 11/20/2015 Last Documented On 3 3:25PM ; [facility], [facility] Not a current smoker 11/20/2015 Last Documented On 3 3:25PM ; [facility], [facility] Not exercising regularly 11/20/2015 Last Documented On 3 3:25PM ; [facility] Not using alcohol 11/20/2015 Last Documented On 3 3:25PM ; [facility], [facility] Not using drugs 11/20/2015 Last Documented On 3 3:25PM ; [facility], [facility] Procedures and Surgical History Includes: Procedures from this encounter Procedures Code Diagnosis Performing Provider Service L ocation Service Date use of tobacco assessment performed 1000F Last Documented On 3 3:25PM ; [facility], [facility] Clinical summary provided to patient Last Documented On 3 3:25PM ; [facility], [facility] 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 Includes: 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 addressed during this encounter Description Last Updated History of asthma 11/08/2022 Last Documented On 3 3:25PM ; [facility], [facility] History of Fractures 11/08/2022 Last Documented On 3 3:25PM ; [facility], [facility] History of Heartburn / Acid Reflux 11/08 Last Documented On 3 3:25PM ; [facility], [facility] Past medical and surgical history non-co ntributory 11/20/2015 Last Documented On 3 3:25PM ; [facility], [facility] Family History Includes: Family History addressed during this encounter Description Last Updated Diabetes mellitus 11/08/2022 Last Documented On 3 3:25PM ; [facility], [facility] Family history of cancer 11/08/2022 Last Documented On 3 3:25PM ; [facility], [facility] Family history of systemic hypertension 11/08/2022 Last Documented On 3 3:25PM ; [facility] Maternal grandfather's history of system ic hypertension 11/08/2022 Last Documented On 3 3:25PM ; [facility] Maternal grandmother's history of diabet es mellitus 11/08/2022 Last Documented On 3 3:25PM ; [facility] Maternal grandmother's history of family history of cancer 11/08/2022 Last Documented On 3 3:25PM ; [facility] Maternal grandmother's history of system ic hypertension 11/08/2022 Last Documented On 3 3:25PM ; [facility] Maternal history of family history of ca ncer 11/08/2022 Last Documented On 3 3:25PM ; [facility] Paternal grandfather's history of system ic hypertension 11/08/2022 Last Documented On 3 3:25PM ; [facility] Paternal grandmother's history of system ic hypertension 11/08/2022 Last Documented On 3 3:25PM ; [facility] Review of Systems Includes: Review of Systems [...] Time Diagnosis Follow Up Tan Carrizales PA-C [facility] 3 3:19PM 4:08PM Insurance Includes: Active Insurance Policies Plan Name Member ID Group # Subscriber Relationship Effect alexis Dates 1 - [employer] [id number] LILIANA DOMINGUEZ 3 - Unknown Clinical Notes Includes: Clinical Notes from this encounter * Progress note Date Encounter Last Documented by 11/10/2022 Follow Up Last documented on 11/10/2022; 4:11 PM, Tan Carrizales PA-C; [facility], [facility] Active Problems & Conditions - [...] 1 view sunrise was negative 11/08/22 MRI [facility] was not read as medial meniscus tear but I believe she does have medial meniscus tear of the posterior horn her signal in that meniscus Assessment Right knee medial meniscus tear Therapy - Clinical summary provided to patient. Plan Patient was seen by myself aTn Carrizales PA-C. Patient will follow up with [...]
--- OUTSIDE RECORDS SUMMARY | 2025-01-24 22:23 | XMS_ITS | Clinical Summary ---
Author Organization [facility] , [facility] Address [address] [place] [address] Phone Care Team Providers Care Seamer Elastic Band Name Role Phone Migel CASTILLO, Tan Sarah Unavailable [phone] Josiah CASTILLO, Wong Unavailable [phone] Reason for Visit and Chief Complaint The Chief Complaint is: RT Knee pain Problems Includes: Problems addressed during this encounter and other active Problems Current Visit Onset Date Resolved Date Provider Homeroo n Status Joint Pain in the Left Knee 11/08/2022 Tan Carrizales PA-C Active Last Documented On 3 1:31PM ; [facility] Past Visits Onset Date Resolved Date Provider Condition Status Bone Pain in the Left Foot 11/20/2015 Devante Solomon MD Active Last Documented On 6 2:37PM ; [facility] Plan of Treatment Patient was seen by myself Tan Carrizales PA-C. 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 work - Last Documented On 11/08/2022 3:22PM ; [facility] Assessments Includes: Assessments from this encounter Findings Right knee pain possible meniscus tear versus patella subluxation or MPFL tear - Last Documented On 11/08/2022 3:22PM ; [facility] Medical Equipment - Implanted Devices Includes: [...] 10:45AM By Orly Eastman ; [facility], [facility] Medications Administered Includes: Administered Medications from this encounter No Administered Medications Recorded Vital Signs Includes: Vital Signs from this encounter Vital Name 11/08/2022 01:35P Blood Pressure Sitting (mmHg) 109/48 Pulse Rate-Sitting (bpm) 77 Height (in) 64 Weight (lb) 100 Body Mass Index 17.2 BMI Percentile (percentile) 3.4 Body Surface Area 1.5 Note: MG Last Documented: On 11/08/2022 1:36PM ; [facility], [facility] Results Includes: Results discussed [...] Documented On 3 3:22PM ; [facility], [facility] No recent change in diet 11/08/2022 Last Documented On 3 3:22PM ; [facility], [facility] Not a current smoker. 11/08/2022 Last Documented On 3 3:22PM ; [facility], [facility] Never drank alcohol 11/08/2022 Last Documented On 3 3:22PM ; [facility], [facility] Never smoked 11/08/2022 Last Documented On 3 3:22PM ; [facility] Never used drugs 11/08/2022 Last Documented On 3 3:22PM ; [facility], [facility] No tobacco use 11/20/2015 Last Documented On 3 1:31PM ; [facility], [facility] Smoking status : Never smoker 11/20/2015 Last Documented On 3 1:31PM ; [facility], [facility] No caffeine use 11/20/2015 Last Documented On 3 1:31PM ; [facility], [facility] No recent change in diet 11/20/2015 Last Documented On 3 1:31PM ; [facility], [facility] Not a current smoker 11/20/2015 Last Documented On 3 1:31PM ; [facility], [facility] Not exercising regularly 11/20/2015 Last Documented On 3 1:31PM ; [facility], [facility] Not using alcohol 11/20/2015 Last Documented On 3 1:31PM ; [facility], [facility] Not using drugs 11/20/2015 Last Documented On 3 1:31PM ; [facility], [facility] Procedures and Surgical History Includes: Procedures from this encounter Procedures Code Diagnosis Performing Provider Service L ocation Service Date use of tobacco assessment performed 1000F Last Documented On 3 2:28PM ; [facility], [facility] Clinical summary provided to patient Last Documented On 3 1:31PM ; [facility], [facility] an X-ray was performed [id number] Last Documented On 3 2:27PM ; [facility], [facility] history of an X-ray was performed 11/20/[address] [facility] [address] Last Documented On 3 1:31PM ; [facility], [facility] 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 Includes: 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 addressed during this encounter Description Last Updated History of asthma 11/08/2022 Last Documented On 3 3:22PM ; [facility], [facility] History of Fractures 11/08/2022 Last Documented On 3 3:22PM ; [facility], [facility] History of Heartburn / Acid Reflux 11/08 Last Documented On 3 3:22PM ; [facility], [facility] Past medical and surgical history non-co ntributory 11/20/2015 Last Documented On 3 1:31PM ; [facility] Family History Includes: Family History addressed during this encounter Description Last Updated Diabetes mellitus 11/08/2022 Last Documented On 3 3:22PM ; [facility] Family history of cancer 11/08/2022 Last Documented On 3 3:22PM ; [facility] Family history of systemic hypertension 11/08/2022 Last Documented On 3 3:22PM ; [facility] Maternal grandfather's history of system ic hypertension 11/08/2022 Last Documented On 3 3:22PM ; [facility] Maternal grandmother's history of diabet es mellitus 11/08/2022 Last Documented On 3 3:22PM ; [facility] Maternal grandmother's history of family history of cancer 11/08/2022 Last Documented On 3 3:22PM ; [facility] Maternal grandmother's history of system ic hypertension 11/08/2022 Last Documented On 3 3:22PM ; [facility] Maternal history of family history of ca ncer 11/08/2022 Last Documented On 3 1:31PM ; [facility] Maternal history of family history of ca ncer 11/08/2022 Last Documented On 3 3:22PM ; [facility] Paternal grandfather's history of system ic hypertension 11/08/2022 Last Documented On 3 3:22PM ; [facility] Paternal grandmother's history of system ic hypertension 11/08/2022 Last Documented On 3 3:22PM ; [facility] Review of Systems Includes: Review [...] Time Diagnosis Physician Specified Tan Carrizales PA-C [facility] 11/08/19 23 1:18PM 2:11PM Insurance Includes: Active Insurance Policies Plan Name Member ID Group # Subscriber Relationship Effect alexis 1 - [facility] [id number] LILIANA DOMINGUEZ 3 - Unknown Clinical Notes Includes: Clinical Notes from this encounter * Progress note Date Encounter Last Documented by 11/08/2022 Physician Specified Last jefry blakn on 11/08/2022; 3:22 PM, Tan Carrizales PA-C; [facility], [facility] Active Problems & Conditions [...] Imaging: X-Ray: An X-ray was performed 11/20/2015 [facility] Urgent Treatment. An X-ray was performed. Therapy [...]
--- OUTSIDE RECORDS SUMMARY | 2025-01-24 22:23 | XMS_ITS | Clinical Summary ---
Author Organization [facility] Address [address] [place] [address] Phone Care Team Providers Care Perpetual Inventory Clerk Name Role Phone Migel CASTILLO, Tan Sarah Unavailable [phone] Josiah CASTILLO, Wong Unavailable [phone] Reason for Visit and Chief Complaint The Chief Complaint is: RT Knee pain Problems Includes: Problems addressed during this encounter and other active Problems All Visits Onset Date Resolved Date Provider Condition S tatus Joint Pain in the Left Knee 11/08/2022 Tan Carrizales PA-C Active Last Documented On 3 1:31PM ; [facility] Bone Pain in the Left Foot 11/20/2015 Devante Solomon MD Active Last Documented On 6 2:37PM ; [facility] Plan of Treatment Patient is showing [...] - Last Documented On 11/19/2022 2:17PM ; [facility] Assessments Includes: Assessments from this encounter Findings Bone bruise right knee with possible partial meniscus tear medial - Last Documented On 11/19/2022 2:17PM ; [facility] Medical Equipment - Implanted Devices [...] 10:45AM By Orly Eastman ; [facility] Medications Administered Includes: Administered Medications from this encounter No Administered Medications Recorded Vital Signs Includes: Vital Signs from this encounter Vital Name 11/16/2022 11:40A Blood Pressure Sitting (mmHg) 99/80 Height (in) 64 Weight (lb) 100 Body Mass Index 17.2 BMI Percentile (percentile) 3.4 Body Surface Area 1.5 Note: am Last Documented: On 11/16/2022 11:40A M ; [facility] Results Includes: Results discussed during this [...] Documented On 3 11:14AM ; [facility] No recent change in diet 11/08/2022 Last Documented On 3 11:14AM ; [facility] Not a current smoker. 11/08/2022 Last Documented On 3 11:14AM ; [facility] Never drank alcohol 11/08/2022 Last Documented On 3 11:14AM ; [facility] Never smoked 11/08/2022 Last Documented On 3 11:14AM ; [facility] Never used drugs 11/08/2022 Last Documented On 3 11:14AM ; [facility] No tobacco use 11/20/2015 Last Documented On 3 11:14AM ; [facility] Smoking status : Never smoker 11/20/2015 Last Documented On 3 11:14AM ; [facility] No caffeine use 11/20/2015 Last Documented On 3 11:14AM ; [facility] No recent change in diet 11/20/2015 Last Documented On 3 11:14AM ; [facility] Not a current smoker 11/20/2015 Last Documented On 3 11:14AM ; [facility] Not exercising regularly 11/20/2015 Last Documented On 3 11:14AM ; [facility] Not using alcohol 11/20/2015 Last Documented On 3 11:14AM ; [facility] Not using drugs 11/20/2015 Last Documented On 3 11:14AM ; [facility] Procedures and Surgical History Includes: Procedures from this encounter Procedures Code Diagnosis Performing Provider Service L ocation Service Date use of tobacco assessment performed 1000F Last Documented On 3 11:14AM ; [facility] Clinical summary provided to patient Last Documented On 3 11:14AM ; [facility] 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 Includes: 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 addressed during this encounter Description Last Updated History of asthma 11/08/2022 Last Documented On 3 11:14AM ; [facility] History of Fractures 11/08/2022 Last Documented On 3 11:14AM ; [facility] History of Heartburn / Acid Reflux 11/08 Last Documented On 3 11:14AM ; [facility] Past medical and surgical history non-co ntributory 11/20/2015 Last Documented On 3 11:14AM ; [facility] Family History Includes: Family History addressed during this encounter Description Last Updated Diabetes mellitus 11/08/2022 Last Documented On 3 11:14AM ; [facility] Family history of cancer 11/08/2022 Last Documented On 3 11:14AM ; [facility] Family history of systemic hypertension 11/08/2022 Last Documented On 3 11:14AM ; [facility] Maternal grandfather's history of system ic hypertension 11/08/2022 Last Documented On 3 11:14AM ; [facility] Maternal grandmother's history of diabet es mellitus 11/08/2022 Last Documented On 3 11:14AM ; [facility] Maternal grandmother's history of family history of cancer 11/08/2022 Last Documented On 3 11:14AM ; [facility] Maternal grandmother's history of system ic hypertension 11/08/2022 Last Documented On 3 11:14AM ; [facility] Maternal history of family history of ca ncer 11/08/2022 Last Documented On 3 11:14AM ; [facility] Paternal grandfather's history of system ic hypertension 11/08/2022 Last Documented On 3 11:14AM ; [facility], [facility] Paternal grandmother's history of system ic hypertension 11/08/2022 Last Documented On 3 11:14AM ; [facility] Review of Systems Includes: Review of [...] Time Diagnosis Follow Up Wong Rahman MD [facility] 3 11:13AM 12:04PM Insurance Includes: Active Insurance Policies Plan Name Member ID Group # Subscriber Relationship Effect alexis Dates 1 - [facility] [employer] [id number] LILIANA DOMINGUEZ 3 - Unknown Clinical Notes Includes: Clinical Notes from this encounter * Progress note Date Encounter Last Documented by 11/16/2022 Follow Up Last documented on 11/19/2022; 2:17 PM, Wong Rahman MD; [facility], [facility] Active Problems & Conditions - Bone [...]
--- OUTSIDE RECORDS SUMMARY | 2025-01-24 22:23 | XMS_ITS | Clinical Summary ---
Author Organization [facility] Address [address] [place] [address] Phone Care Team Providers Care Geriatric Nurse Assistant Name Role Phone Migel CASTILLO, Tan Saarh Unavailable [phone] Josiah CASTILLO, Wong Unavailable [phone] Reason for Visit and Chief Complaint The Chief Complaint is: RT Knee pain Problems Includes: Problems addressed during this encounter and other active Problems All Visits Onset Date Resolved Date Provider Condition S tatus Joint Pain in the Left Knee 11/08/2022 Tan Carrizales PA-C Active Last Documented On 3 1:31PM ; [facility] Bone Pain in the Left Foot 11/20/2015 Devante Solomon MD Active Last Documented On 6 2:37PM ; [facility] Plan of Treatment Raman has not responded well to PT in [facility] for strengthening and low impact. She [...] that she is unable to travel to [place] due to her job and the cost of travel. We discussed the importance of physical therapy and I recommended that they come to one of our physical therapy locations to include Iontophoresis. We will provide her with a knee brace per her mother's request and she will return for a clinical re-evaluation in 2 weeks. - Last Documented On 12/03/2022 9:39AM ; [facility] Assessments Includes: Assessments from this encounter No [...] to be used by physical therapy Pharmacy: [facility] - [address] [place] [address] May Sarah, [phone] - Last Documented On 3 10:45AM By Orly Eastman ; [facility], [facility] Medications Administered Includes: Administered Medications from this encounter No Administered Medications Recorded Vital Signs Includes: Vital Signs from this encounter Vital Name 11/30/2022 09:42A Height (in) 64 Weight (lb) 105 Body Mass Index 18 BMI Percentile (percentile) 8.7 Body Surface Area 1.5 Note: mg Last Documented: On 11/30/2022 9:43AM ; [facility] Results Includes: Results discussed during [...] 11/08/2022 Last Documented On 3 9:31AM ; [facility] No recent change in diet 11/08/2022 Last Documented On 3 9:31AM ; [facility] Not a current smoker. 11/08/2022 Last Documented On 3 9:31AM ; [facility] Never drank alcohol 11/08/2022 Last Documented On 3 9:31AM ; [facility] Never smoked 11/08/2022 Last Documented On 3 9:31AM ; [facility] Never used drugs 11/08/2022 Last Documented On 3 9:31AM ; [facility] No tobacco use 11/20/2015 Last Documented On 3 9:31AM ; [facility] Smoking status : Never smoker 11/20/2015 Last Documented On 3 9:31AM ; [facility] No caffeine use 11/20/2015 Last Documented On 3 9:31AM ; [facility] No recent change in diet 11/20/2015 Last Documented On 3 9:31AM ; [facility] Not a current smoker 11/20/2015 Last Documented On 3 9:31AM ; [facility] Not exercising regularly 11/20/2015 Last Documented On 3 9:31AM ; [facility] Not using alcohol 11/20/2015 Last Documented On 3 9:31AM ; [facility] Not using drugs 11/20/2015 Last Documented On 3 9:31AM ; [facility] Procedures and Surgical History Includes: Procedures from this encounter Procedures Code Diagnosis Performing Provider Service L ocation Service Date use of tobacco assessment performed 1000F Last Documented On 3 9:31AM ; [facility] Clinical summary provided to patient Last Documented On 3 9:31AM ; [facility] 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 Includes: 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 addressed during this encounter Description Last Updated History of asthma 11/08/2022 Last Documented On 3 9:31AM ; [facility] History of Fractures 11/08/2022 Last Documented On 3 9:31AM ; [facility] History of Heartburn / Acid Reflux 11/08 Last Documented On 3 9:31AM ; [facility] Past medical and surgical history non-co ntributory 11/20/2015 Last Documented On 3 9:31AM ; [facility] Family History Includes: Family History addressed during this encounter Description Last Updated Diabetes mellitus 11/08/2022 Last Documented On 3 9:31AM ; [facility] Family history of cancer 11/08/2022 Last Documented On 3 9:31AM ; [facility] Family history of systemic hypertension 11/08/2022 Last Documented On 3 9:31AM ; [facility] Maternal grandfather's history of system ic hypertension 11/08/2022 Last Documented On 3 9:31AM ; [facility] Maternal grandmother's history of diabet es mellitus 11/08/2022 Last Documented On 3 9:31AM ; [facility] Maternal grandmother's history of family history of cancer 11/08/2022 Last Documented On 3 9:31AM ; [facility] Maternal grandmother's history of system ic hypertension 11/08/2022 Last Documented On 3 9:31AM ; [facility] Maternal history of family history of ca ncer 11/08/2022 Last Documented On 3 9:31AM ; [facility] Paternal grandfather's history of system ic hypertension 11/08/2022 Last Documented On 3 9:31AM ; [facility] Paternal grandmother's history of system ic hypertension 11/08/2022 Last Documented On 3 9:31AM ; [facility] Review of Systems Includes: Review [...] Time Diagnosis Follow Up Wong Rahman MD [facility] 3 9:17AM 10:27AM Insurance Includes: Active Insurance Policies Plan Name Member ID Group # Subscriber Relationship Effect alexis Dates 1 - [facility] [employer] [id number] LILIANA DOMINGUEZ 3 - Unknown Clinical Notes Includes: Clinical Notes from this encounter * Progress note Date Encounter Last Documented by 11/30/2022 Follow Up Last documented on 12/03/2022; 9:39 AM, Wong Rahman MD; [facility], [facility] Active Problems & Conditions - [...] has not responded well to PT in [facility] for strengthening and low impact. She [...] that she is unable to travel to [place] due to her job and the cost [...]
== END 2025-01-23 23:59 | disposition home or self-care (01) ==
LOC: RAD 13:44
PROVIDERS: Visit Provider Physician Assistant Surgical
DX: M25.562 Pain in left knee (principal)
CPT/HCPCS: 73562

== ENCOUNTER 2025-02-01 15:36 | Outpatient (CLI) | payer OTHER, MEDICAID, SELFPAY ==
--- OUTSIDE RECORDS SUMMARY | 2025-02-01 15:38 | XMS_ITS | Clinical Summary ---
Author Organization [facility] Address [address] [place] [address] Phone Care Team Providers Care Hand Printed Circuit Board Assembler Name Role Phone Migel CASTILLO, Tan Sarah Unavailable [phone] Josiah CASTILLO, Wong Unavailable [phone] Reason for Visit and Chief Complaint The Chief Complaint is: RT Knee pain Problems Includes: Problems addressed during this encounter and other active Problems All Visits Onset Date Resolved Date Provider Condition S tatus Joint Pain in the Left Knee 11/08/2022 Tan Carrizales PA-C Active Last Documented On 3 1:31PM ; [facility] Bone Pain in the Left Foot 11/20/2015 Devante Solomon MD Active Last Documented On 6 2:37PM ; [facility] Plan of Treatment Raman has not responded well to PT in [facility] for strengthening and low impact. She [...] that she is unable to travel to [place] due to her job and the cost of travel. We discussed the importance of physical therapy and I recommended that they come to one of our physical therapy locations to include Iontophoresis. We will provide her with a knee brace per her mother's request and she will return for a clinical re-evaluation in 2 weeks. - Last Documented On 12/03/2022 9:39AM ; [facility] Assessments Includes: Assessments from this [...] to be used by physical therapy Pharmacy: [facility] - [address] [place] [address] May Sarah, [phone] - Last Documented On 3 10:45AM By Orly Eastman ; [facility] Medications Administered Includes: Administered Medications from this encounter No Administered Medications Recorded Vital Signs Includes: Vital Signs from this encounter Vital Name 11/30/2022 09:42A Height (in) 64 Weight (lb) 105 Body Mass Index 18 BMI Percentile (percentile) 8.7 Body Surface Area 1.5 Note: mg Last Documented: On 11/30/2022 9:43AM ; [facility] Results Includes: Results discussed during this [...] Documented On 3 9:31AM ; [facility] History of Fractures 11/08/2022 Last Documented On 3 9:31AM ; [facility] History of Heartburn / Acid Reflux 11/08 Last Documented On 3 9:31AM ; [facility] Past medical and surgical history non-co ntributory 11/20/2015 Last Documented On 3 9:31AM ; [facility] Family History Includes: Family History addressed during this encounter Description Last Updated Diabetes mellitus 11/08/2022 Last Documented On 3 9:31AM ; [facility] Family history of cancer 11/08/2022 Last Documented On 3 9:31AM ; [facility] Family history of systemic hypertension 11/08/2022 Last Documented On 3 9:31AM ; [facility] Maternal grandfather's history of system ic hypertension 11/08/2022 Last Documented On 3 9:31AM ; [facility] Maternal grandmother's history of diabet es mellitus 11/08/2022 Last Documented On 3 9:31AM ; [facility] Maternal grandmother's history of family history of cancer 11/08/2022 Last Documented On 3 9:31AM ; [facility] Maternal grandmother's history of system ic hypertension 11/08/2022 Last Documented On 3 9:31AM ; [facility] Maternal history of family history of ca ncer 11/08/2022 Last Documented On 3 9:31AM ; [facility] Paternal grandfather's history of system ic hypertension 11/08/2022 Last Documented On 3 9:31AM ; [facility] Paternal grandmother's history of system ic hypertension 11/08/2022 Last Documented On 3 9:31AM ; [facility] Review of Systems Includes: Review of [...] Time Diagnosis Follow Up Wong Rahman MD [facility] 3 9:17AM 10:27AM Insurance Includes: Active Insurance Policies Plan Name Member ID Group # Subscriber Relationship Effect alexis Dates 1 - [facility] [employer] [id number] LILIANA DOMINGUEZ 3 - Unknown Clinical Notes Includes: Clinical Notes from this encounter * Progress note Date Encounter Last Documented by 11/30/2022 Follow Up Last documented on 12/03/2022; 9:39 AM, Wong Rahman MD; [facility], [facility] Active Problems & Conditions - [...] has not responded well to PT in [facility] for strengthening and low impact. She [...] that she is unable to travel to [place] due to her job and the cost [...]
--- OUTSIDE RECORDS SUMMARY | 2025-02-01 15:38 | XMS_ITS | Clinical Summary ---
Author Organization [facility] Address [address] [place] [address] Phone Care Team Providers Care Pavilion Cutter Name Role Phone Migel CASTILLO, Tan Sarah Unavailable [phone] Josiah CASTILLO, Wong Unavailable [phone] Reason for Visit and Chief Complaint The Chief Complaint is: RT Knee pain Problems Includes: Problems addressed during this encounter and other active Problems Current Visit Onset Date Resolved Date Provider Homeroo n Status Joint Pain in the Left Knee 11/08/2022 Tan Carrziales PA-C Active Last Documented On 3 1:31PM ; [facility] Past Visits Onset Date Resolved Date Provider Condition Status Bone Pain in the Left Foot 11/20/2015 Devante Solomon MD Active Last Documented On 6 2:37PM ; [facility] Plan of Treatment Patient was seen by myself Tan Carrizales PA-C. 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 work - Last Documented On 11/08/2022 3:22PM ; [facility] Assessments Includes: Assessments from this encounter Findings Right knee pain possible meniscus tear versus patella subluxation or MPFL tear - Last Documented On 11/08/2022 3:22PM ; [facility] Medical Equipment - Implanted Devices [...] 10:45AM By Orly Eastman ; [facility] Medications Administered Includes: Administered [...] Documented: On 11/08/2022 1:36PM ; [facility] Results Includes: Results discussed [...] Documented On 3 3:22PM ; [facility] No recent change in diet 11/08/2022 Last Documented On 3 3:22PM ; [facility] Not a current smoker. 11/08/2022 Last Documented On 3 3:22PM ; [facility] Never drank alcohol 11/08/2022 Last Documented On 3 3:22PM ; [facility] Never smoked 11/08/2022 Last Documented On 3 3:22PM ; [facility] Never used drugs 11/08/2022 Last Documented On 3 3:22PM ; [facility] No tobacco use 11/20/2015 Last Documented On 3 1:31PM ; [facility] Smoking status : Never smoker 11/20/2015 Last Documented On 3 1:31PM ; [facility] No caffeine use 11/20/2015 Last Documented On 3 1:31PM ; [facility] No recent change in diet 11/20/2015 Last Documented On 3 1:31PM ; [facility] Not a current smoker 11/20/2015 Last Documented On 3 1:31PM ; [facility] Not exercising regularly 11/20/2015 Last Documented On 3 1:31PM ; [facility] Not using alcohol 11/20/2015 Last Documented On 3 1:31PM ; [facility] Not using drugs 11/20/2015 Last Documented On 3 1:31PM ; [facility] Procedures and Surgical History Includes: Procedures from this encounter Procedures Code Diagnosis Performing Provider Service L ocation Service Date use of tobacco assessment performed 1000F Last Documented On 3 2:28PM ; [facility] Clinical summary provided to patient Last Documented On 3 1:31PM ; [facility] an X-ray was performed [id number] Last Documented On 3 2:27PM ; [facility] history of an X-ray was performed 11/20/[address] [facility] [id number] Last Documented On 3 1:31PM ; [facility] 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 Includes: 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 addressed during this encounter Description Last Updated History of asthma 11/08/2022 Last Documented On 3 3:22PM ; [facility] History of Fractures 11/08/2022 Last Documented On 3 3:22PM ; [facility] History of Heartburn / Acid Reflux 11/08 Last Documented On 3 3:22PM ; [facility] Past [...] 11/08/2022 Last Documented On 3 3:22PM ; [facility] Review of Systems Includes: [...] Time Diagnosis Physician Specified Tan Carrizales PA-C [facility] 11/08/19 23 1:18PM 2:11PM Insurance Includes: Active Insurance Policies Plan Name Member ID Group # Subscriber Relationship Effect alexis 1 - [facility] [id number] LILIANA DOMINGUEZ 3 - Unknown Clinical Notes Includes: Clinical Notes from this encounter * Progress note Date Encounter Last Documented by 11/08/2022 Physician Specified Last jefry blank on 11/08/2022; 3:22 PM, Tan Carrizales PA-C; [facility], [facility] Active Problems & Conditions [...] Imaging: X-Ray: An X-ray was performed 11/20/2015 [facility] Urgent Treatment. An X-ray was performed. Therapy [...]
--- OUTSIDE RECORDS SUMMARY | 2025-02-01 15:38 | XMS_ITS | Clinical Summary ---
Author Organization [facility] , [facility] Address [address] [place] [address] Phone Care Team Providers Care Optical Design Engineer Name Role Phone Migel CASTILLO, Tan Sarah Unavailable [phone] Josiah CASTILLO, Wong Unavailable [phone] Reason for Visit and Chief Complaint The Chief Complaint is: RT Knee pain Problems Includes: Problems addressed during this encounter and other active Problems All Visits Onset Date Resolved Date Provider Condition S tatus Joint Pain in the Left Knee 11/08/2022 Tan Carrizales PA-C Active Last Documented On 3 1:31PM ; [facility] Bone Pain in the Left Foot 11/20/2015 Devante Solomon MD Active Last Documented On 6 2:37PM ; [facility] Plan of Treatment Patient is showing [...] - Last Documented On 11/19/2022 2:17PM ; [facility] Assessments Includes: Assessments from this encounter Findings Bone bruise right knee with possible partial meniscus tear medial - Last Documented On 11/19/2022 2:17PM ; [facility] Medical Equipment - Implanted Devices Includes: [...] 10:45AM By Orly Eastman ; [facility] Medications Administered Includes: Administered Medications from this encounter No Administered Medications Recorded Vital Signs Includes: Vital Signs from this encounter Vital Name 11/16/2022 11:40A Blood Pressure Sitting (mmHg) 99/80 Height (in) 64 Weight (lb) 100 Body Mass Index 17.2 BMI Percentile (percentile) 3.4 Body Surface Area 1.5 Note: am Last Documented: On 11/16/2022 11:40A M ; [facility] Results Includes: Results discussed during [...] Documented On 3 11:14AM ; [facility] No recent change in diet 11/08/2022 Last Documented On 3 11:14AM ; [facility] Not a current smoker. 11/08/2022 Last Documented On 3 11:14AM ; [facility] Never drank alcohol 11/08/2022 Last Documented On 3 11:14AM ; [facility] Never smoked 11/08/2022 Last Documented On 3 11:14AM ; [facility] Never used drugs 11/08/2022 Last Documented On 3 11:14AM ; [facility] No tobacco use 11/20/2015 Last Documented On 3 11:14AM ; [facility] Smoking status : Never smoker 11/20/2015 Last Documented On 3 11:14AM ; [facility] No caffeine use 11/20/2015 Last Documented On 3 11:14AM ; [facility] No recent change in diet 11/20/2015 Last Documented On 3 11:14AM ; [facility] Not a current smoker 11/20/2015 Last Documented On 3 11:14AM ; [facility] Not exercising regularly 11/20/2015 Last Documented On 3 11:14AM ; [facility] Not using alcohol 11/20/2015 Last Documented On 3 11:14AM ; [facility] Not using drugs 11/20/2015 Last Documented On 3 11:14AM ; [facility] Procedures and Surgical History Includes: Procedures from this encounter Procedures Code Diagnosis Performing Provider Service L ocation Service Date use of tobacco assessment performed 1000F Last Documented On 3 11:14AM ; [facility], [facility] Clinical summary provided to patient Last Documented On 3 11:14AM ; [facility], [facility] 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 Includes: 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 addressed during this encounter Description Last Updated History of asthma 11/08/2022 Last Documented On 3 11:14AM ; [facility] History of Fractures 11/08/2022 Last Documented On 3 11:14AM ; [facility] History of Heartburn / Acid Reflux 11/08 Last Documented On 3 11:14AM ; [facility] Past medical and surgical history non-co ntributory 11/20/2015 Last Documented On 3 11:14AM ; [facility], [facility] Family History Includes: Family History addressed during this encounter Description Last Updated Diabetes mellitus 11/08/2022 Last Documented On 3 11:14AM ; [facility] Family history of cancer 11/08/2022 Last Documented On 3 11:14AM ; [facility] Family history of systemic hypertension 11/08/2022 Last Documented On 3 11:14AM ; [facility], [facility] Maternal grandfather's history of system ic hypertension 11/08/2022 Last Documented On 3 11:14AM ; [facility] Maternal grandmother's history of diabet es mellitus 11/08/2022 Last Documented On 3 11:14AM ; [facility] Maternal grandmother's history of family history of cancer 11/08/2022 Last Documented On 3 11:14AM ; [facility], [facility] Maternal grandmother's history of system ic hypertension 11/08/2022 Last Documented On 3 11:14AM ; [facility], [facility] Maternal history of family history of ca ncer 11/08/2022 Last Documented On 3 11:14AM ; [facility], [facility] Paternal grandfather's history of system ic hypertension 11/08/2022 Last Documented On 3 11:14AM ; [facility] Paternal grandmother's history of system ic hypertension 11/08/2022 Last Documented On 3 11:14AM ; [facility] Review of Systems Includes: Review [...] Time Diagnosis Follow Up Wong Rahman MD [facility] 3 11:13AM 12:04PM Insurance Includes: Active Insurance Policies Plan Name Member ID Group # Subscriber Relationship Effect alexis Dates 1 - [facility] [employer] [id number] LILIANA DOMINGUEZ 3 - Unknown Clinical Notes Includes: Clinical Notes from this encounter * Progress note Date Encounter Last Documented by 11/16/2022 Follow Up Last documented on 11/19/2022; 2:17 PM, Wong Rahman MD; [facility], [facility] Active Problems & Conditions - [...]
--- OUTSIDE RECORDS SUMMARY | 2025-02-01 15:38 | XMS_ITS | Clinical Summary ---
Author Organization [facility] , [facility] Address [address] [place] [address] Phone Care Team Providers Care Ground Service Equipment Mechanic Name Role Phone Migel CASTILLO, Tan Sarah Unavailable [phone] Josiah CASTILLO, Wong Unavailable [phone] Reason for Visit and Chief Complaint The Chief Complaint is: RT Knee pain Problems Includes: Problems addressed during this encounter and other active Problems All Visits Onset Date Resolved Date Provider Condition S tatus Joint Pain in the Left Knee 11/08/2022 Tan Carrizales PA-C Active Last Documented On 3 1:31PM ; [facility] Bone Pain in the Left Foot 11/20/2015 Devante Solomon MD Active Last Documented On 6 2:37PM ; [facility] Plan of Treatment Patient was seen by myself Tan Carrizales PA-C. Patient will follow up with Dr. Rahman on Tuesday so that mom can have discussion with them to talk about surgery. - Last Documented On 11/10/2022 4:11PM ; [facility] Assessments Includes: Assessments from this encounter Findings Right knee medial meniscus tear - Last Documented On 11/10/2022 4:11PM ; [facility] Medical Equipment - Implanted Devices Includes: Current Devices No Medical Equipment Recorded Medications Includes: Medications discussed during this encounter and other current Medications Past Medications on file Dexamethasone Sodium Phospha te 4 MG/ML Injection Solution 11/30/2022 - 12/30/2022 Provider: Wong mao MD Diagnosis: use as directed- to be used by physical therapy Last Documented On 3 10:45AM By Orly Eastman ; [facility] Medications Administered Includes: Administered Medications from this encounter No Administered Medications Recorded Vital Signs Includes: Vital Signs from this encounter Vital Name 11/10/2022 03:49P Blood Pressure Sitting (mmHg) 105/61 Pulse Rate-Sitting (bpm) 75 Weight (lb) 100 Last Documented: On 11/10/2022 3:50PM ; [facility], [facility] Results Includes: Results discussed during this [...] Documented On 3 3:25PM ; [facility], [facility] No recent change in diet 11/08/2022 Last Documented On 3 3:25PM ; [facility], [facility] Not a current smoker. 11/08/2022 Last Documented On 3 3:25PM ; [facility], [facility] Never drank alcohol 11/08/2022 Last Documented On 3 3:25PM ; [facility], [facility] Never smoked 11/08/2022 Last Documented On 3 3:25PM ; [facility], [facility] Never used drugs 11/08/2022 Last Documented On 3 3:25PM ; [facility], [facility] No tobacco use 11/20/2015 Last Documented On 3 3:25PM ; [facility], [facility] Smoking status : Never smoker 11/20/2015 Last Documented On 3 3:25PM ; [facility], [facility] No caffeine use 11/20/2015 Last Documented On 3 3:25PM ; [facility], [facility] No recent change in diet 11/20/2015 Last Documented On 3 3:25PM ; [facility], [facility] Not a current smoker 11/20/2015 Last Documented On 3 3:25PM ; [facility], [facility] Not exercising regularly 11/20/2015 Last Documented On 3 3:25PM ; [facility] Not using alcohol 11/20/2015 Last Documented On 3 3:25PM ; [facility], [facility] Not using drugs 11/20/2015 Last Documented On 3 3:25PM ; [facility], [facility] Procedures and Surgical History Includes: Procedures from this encounter Procedures Code Diagnosis Performing Provider Service L ocation Service Date use of tobacco assessment performed 1000F Last Documented On 3 3:25PM ; [facility], [facility] Clinical summary provided to patient Last Documented On 3 3:25PM ; [facility], [facility] 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 Includes: 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 addressed during this encounter Description Last Updated History of asthma 11/08/2022 Last Documented On 3 3:25PM ; [facility], [facility] History of Fractures 11/08/2022 Last Documented On 3 3:25PM ; [facility], [facility] History of Heartburn / Acid Reflux 11/08 Last Documented On 3 3:25PM ; [facility], [facility] Past medical and surgical history non-co ntributory 11/20/2015 Last Documented On 3 3:25PM ; [facility], [facility] Family History Includes: Family History addressed during this encounter Description Last Updated Diabetes mellitus 11/08/2022 Last Documented On 3 3:25PM ; [facility], [facility] Family history of cancer 11/08/2022 Last Documented On 3 3:25PM ; [facility], [facility] Family history of systemic hypertension 11/08/2022 [...] 11/08/2022 Last Documented On 3 3:25PM ; [facility] Review of Systems Includes: Review [...] Time Diagnosis Follow Up Tan Carrizales PA-C [facility] 3 3:19PM 4:08PM Insurance Includes: Active Insurance Policies Plan Name Member ID Group # Subscriber Relationship Effect alexis Dates 1 - [employer] [id number] LILIANA DOMINGUEZ 3 - Unknown Clinical Notes Includes: Clinical Notes from this encounter * Progress note Date Encounter Last Documented by 11/10/2022 Follow Up Last documented on 11/10/2022; 4:11 PM, Tan Carrizales PA-C; [facility], [facility] Active Problems & Conditions - Bone [...] 1 view sunrise was negative 11/08/22 MRI [facility] was not read as medial meniscus tear [...]
--- OUTSIDE RECORDS SUMMARY | 2025-02-01 15:38 | XMS_ITS | Clinical Summary ---
Author Organization [facility] , [facility] Address [address] [place] [address] Phone Care Team Providers Care Suction Plate Roller Hand Name Role Phone Migel CASTILLO, Tan Sarah Unavailable [phone] Josiah CASTILLO, Wong Unavailable [phone] Reason for Visit and Chief Complaint The Chief Complaint is: RT Knee pain Problems Includes: Problems addressed during this encounter and other active Problems All Visits Onset Date Resolved Date Provider Condition S tatus Joint Pain in the Left Knee 11/08/2022 Tan Carirzales PA-C Active Last Documented On 3 1:31PM ; [facility] Bone Pain in the Left Foot 11/20/2015 Devante Solomon MD Active Last Documented On 6 2:37PM ; [facility] Plan of Treatment patient needs to focus on low-impact glued activation exercises core strengthening and hip flexor stretching will give her a program to work on at home we will see her back in 2 months to see how she is progressing - Last Documented On 02/28/2023 1:57PM ; [facility] Assessments Includes: Assessments from this encounter Findings anterior knee pain right greater than left with patella tendinitis - Last Documented On 02/28/2023 1:57PM ; [facility] Medical Equipment - Implanted Devices Includes: Current Devices No Medical Equipment Recorded Medications Includes: Medications discussed during this encounter and other current Medications Past Medications on file Dexamethasone Sodium Phospha te 4 MG/ML Injection Solution 11/30/2022 - 12/30/2022 Provider: Wong mao MD Diagnosis: use as directed- to be used by physical therapy Last Documented On 3 10:45AM By Orly Eastman ; [facility] Medications Administered Includes: Administered Medications from this encounter No Administered Medications Recorded Vital Signs Includes: Vital Signs from this encounter Vital Name 02/24/2023 03:18P Height (in) 64 Weight (lb) 100 Body Mass Index 17.2 BMI Percentile (percentile) 1 Body Surface Area 1.5 Note: ba Last Documented: On 02/24/2023 3:18PM ; [facility], [facility] Results Includes: Results discussed during this [...] 11/08/2022 Last Documented On 3 3:14PM ; [facility], [facility] No recent change in diet 11/08/2022 Last Documented On 3 3:14PM ; [facility], [facility] Not a current smoker. 11/08/2022 Last Documented On 3 3:14PM ; [facility], [facility] Never drank alcohol 11/08/2022 Last Documented On 3 3:14PM ; [facility], [facility] Never smoked 11/08/2022 Last Documented On 3 3:14PM ; [facility], [facility] Never used drugs 11/08/2022 Last Documented On 3 3:14PM ; [facility], [facility] No tobacco use 11/20/2015 Last Documented On 3 3:14PM ; [facility], [facility] Smoking status : Never smoker 11/20/2015 Last Documented On 3 3:14PM ; [facility], [facility] No caffeine use 11/20/2015 Last Documented On 3 3:14PM ; [facility], [facility] No recent change in diet 11/20/2015 Last Documented On 3 3:14PM ; [facility], [facility] Not a current smoker 11/20/2015 Last Documented On 3 3:14PM ; [facility], [facility] Not exercising regularly 11/20/2015 Last Documented On 3 3:14PM ; [facility], [facility] Not using alcohol 11/20/2015 Last Documented On 3 3:14PM ; [facility], [facility] Not using drugs 11/20/2015 Last Documented On 3 3:14PM ; [facility], [facility] Procedures and Surgical History Includes: Procedures from this encounter Procedures Code Diagnosis Performing Provider Service L ocation Service Date use of tobacco assessment performed 1000F Last Documented On 3 3:14PM ; [facility], [facility] Clinical summary provided to patient Last Documented On 3 3:14PM ; [facility], [facility] 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 Includes: 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 addressed during this encounter Description Last Updated History of asthma 11/08/2022 Last Documented On 3 3:14PM ; [facility] History of Fractures 11/08/2022 Last Documented On 3 3:14PM ; [facility], [facility] History of Heartburn / Acid Reflux 11/08 Last Documented On 3 3:14PM ; [facility], [facility] Past medical and surgical history non-co ntributory 11/20/2015 Last Documented On 3 3:14PM ; [facility] Family History Includes: Family History addressed during this encounter Description Last Updated Diabetes mellitus 11/08/2022 Last Documented On 3 3:14PM ; [facility], [facility] Family history of cancer 11/08/2022 Last Documented On 3 3:14PM ; [facility], [facility] Family history of systemic hypertension 11/08/2022 Last Documented On 3 3:14PM ; [facility], [facility] Maternal grandfather's history of system ic [...] Documented On 3 3:14PM ; [facility], [facility] Review of Systems Includes: Review of [...] Time Diagnosis Follow Up Wong Rahman MD [facility] 3 3:12PM 3:35PM Insurance Includes: Active Insurance Policies Plan Name Member ID Group # Subscriber Relationship Effect alexis Dates 1 - [employer] [id number] LILIANA DOMINGUEZ 3 - Unknown Clinical Notes Includes: Clinical Notes from this encounter * Progress note Date Encounter Last Documented by 02/24/2023 Follow Up Last documented on 02/28/2023; 1:57 PM, Wong Rahman MD; [facility], [facility] Active Problems & Conditions - Bone [...] Care Team - Tan Lainez MD - SUPERVISOR ORDER TAKERS
--- OUTSIDE RECORDS SUMMARY | 2025-02-01 15:38 | XMS_ITS ---
Author Organization [facility] , [facility] Address [address] [place] [address] Phone Care Team Providers Care Operations And Maintenance Technician Name Role Phone Migel CASTILLO, Tan Sarah Unavailable [phone] Josiah CASTILLO, Wong Unavailable [phone] Problems Includes: Active, inactive, and resolved Problems All Visits Onset Date Resolved Date Provider Condition S tatus Joint Pain in the Left Knee 11/08/2022 Tan Carrizales PA-C Active Last Documented On 3 1:31PM ; [facility] 11/20/2015 Devante Solomon MD Active Last Documented On 6 2:37PM ; [facility], [facility] Plan of Treatment No Plan of [...] On 3 10:45AM By Orly Eastman ; [facility] Medications Administered Includes: Administered Medications in patient's chart No Administered Medications Recorded Results Includes: Results from 02/02/2024 through 02/01/2025 No Results Recorded For Specified Dates History of Present Illness History of Present Illness not supported for this document type No History of Present Illness Recorded Social History Description Last Updated Tobacco non-user 11/08/2022 Last Documented On 3 3:22PM ; [facility] No recent change in diet 11/08/2022 Last Documented On 3 3:22PM ; [facility], [facility] Not a current smoker. 11/08/2022 Last Documented On 3 3:22PM ; [facility] Never drank alcohol 11/08/2022 Last Documented On 3 3:22PM ; [facility] Never smoked 11/08/2022 Last Documented On 3 3:22PM ; [facility] Never used drugs 11/08/2022 Last Documented On 3 3:22PM ; [facility] No tobacco use 11/20/2015 Last Documented On 6 9:31AM ; [facility], [facility] Smoking status : Never smoker 11/20/2015 Last Documented On 6 9:31AM ; [facility] No caffeine use 11/20/2015 Last Documented On 6 9:31AM ; [facility], [facility] No recent change in diet 11/20/2015 Last Documented On 6 9:31AM ; [facility], [facility] Not a current smoker 11/20/2015 Last Documented On 6 9:31AM ; [facility], [facility] Not exercising regularly 11/20/2015 Last Documented On 6 9:31AM ; [facility], [facility] Not using alcohol 11/20/2015 Last Documented On 6 9:31AM ; [facility], [facility] Not using drugs 11/20/2015 Last Documented On 6 9:31AM ; [facility], [facility] 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 Includes: 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 in patient's chart Description Last Updated History of asthma 11/08/2022 Last Documented On 3 3:22PM ; [facility], [facility] History of Fractures 11/08/2022 Last Documented On 3 3:22PM ; [facility], [facility] History of Heartburn / Acid Reflux 11/08 Last Documented On 3 3:22PM ; [facility], [facility] Past medical and surgical [...] 11/08/2022 Last Documented On 3 3:22PM ; [facility] Maternal grandmother's history of system ic hypertension 11/08/2022 Last Documented On 3 3:22PM ; [facility] Maternal history of family history of ca ncer 11/08/2022 Last Documented On 3 3:22PM ; [facility] Paternal grandfather's history of system ic hypertension 11/08/2022 Last Documented On 3 3:22PM ; [facility] Paternal grandmother's history of system ic hypertension 11/08/2022 Last Documented On 3 3:22PM ; [facility] Review of Systems Review of [...] Subscriber Relationship Effect alexis Dates 1 - [facility] [employer] [id number] LILIANA DOMINGUEZ Child 3 - Unknown Clinical Notes Includes: Signed Clinical Notes starting from 09/30/2022 No Clinical Notes Recorded
--- OUTSIDE RECORDS SUMMARY | 2025-02-01 15:38 | XMS_ITS ---
Care Plan - [facility], [facility] Created on: February 01, 2025 Raman Rees : 2005 Sex: Female Author Organization [facility] , [facility] Address [address] [place] [address] Phone Care Team Providers Care Formula Clerk Name Role Phone Migel CASTILLO, Tan Sarah Unavailable [phone] Josiah CASTILLO, Wong Unavailable [phone]
--- NOTE | 2025-02-01 15:45 | MR_ITS ---
PROCEDURE INFORMATION: Exam: MR Left Lower Extremity Joint Without Contrast, Knee Exam date and time: 02/01/2025 3:42 PM Age: 19 years old Clinical indication: Pain; Knee; Left; Additional info: Eval of meniscus. HX of tears, reoccurring pain TECHNIQUE: Imaging protocol: Magnetic resonance imaging of the left lower extremity joint without contrast. Exam focused on the knee. COMPARISON: MR KNEE LT WO CON 01/05/2022 2:53 PM FINDINGS: Bones/joints: Artifact partially obscures the proximal tibia and fibula. There is a minimal patellofemoral joint effusion. No visualized acute marrow edema. No dislocation of the knee. Bursae: There is a tiny focus of fluid signal intensity within the deep infrapatellar bursa. A neck of a Helm cyst is visualized. Medial meniscus: Mild increased signal intensity is noted within the posterior horn of the medial meniscus, with a suggested tear. Lateral meniscus: No visualized tear of the lateral meniscus extending to an articulating surface. Anterior cruciate ligament: Artifact limits evaluation of the ACL, without visualized tear. Posterior cruciate ligament: No visualized tear. Medial capsule and supporting structures: Unremarkable. No tear. Lateral capsule and supporting structures: Artifact limits evaluation of the distal lateral collateral ligament, without a full-thickness tear. Extensor mechanism of knee: Mild irregular contour of the patellar tendon, without visualized tear. No visualized tear of the distal quadriceps tendon. Soft tissues: No significant soft tissue swelling. IMPRESSION: 1. Mild increased signal intensity is noted within the posterior horn of the medial meniscus, with a suggested tear. 2. Additional findings described above.
== END 2025-02-01 23:59 | disposition home or self-care (01) ==
LOC: RAD 15:36
PROVIDERS: Visit Provider Physician Assistant Surgical
DX: M25.562 Pain in left knee (principal); M23.92 Unspecified internal derangement of left knee
CPT/HCPCS: 73721

== ENCOUNTER 2025-02-20 10:24 | Outpatient (CLI) | payer OTHER, SELFPAY ==
[2025-02-20 10:42] VITALS: BMI 18.7
[2025-02-20 10:59] LABS: Basophils % 0.8 % (0.1-2.0); Eosinophils # 0.2 Kmm3 (0.0-0.4); Eosinophils % 4.3 % (0.1-12.0); Hematocrit 37.6 % (37.0-47.0); Hemoglobin 12.2 g/dL (12.2-16.2); Immature Granulocytes # 0 10^3uL; Immature Granulocytes % 0 %; Lymphocytes # 2.2 K/mm3 (0.7-4.5); Lymphocytes % 55.4 % (10-50); Mean Corpuscular HGB Conc 32.4 g/dL (31.8-35.4); Mean Corpuscular Hemoglobin 26.8 pg (27.0-31.2); Mean Corpuscular Volume 82.5 fl (81-99); Mean Platelet Volume 9.6 fl (7.4-10.4); Monocytes # 0.2 K/mm3 (0.1-1.0); Monocytes % 6.1 % (1.7-9.3); Neutrophils # 1.3 K/mm3 (1.8-7.8); Neutrophils % 33.4 % (37.0-80.0); Nucleated Red Blood Cells # 0 10^3/uL; Nucleated Red Blood Cells % 0 %; Platelet Count 315 K/mm3 (142-424); Red Blood Count 4.56 M/mm3 (4.20-5.40); Red Cell Distribution Width 14.5 % (11.5-17.5); Red Cell Distribution Width-SD 43.3 fL; White Blood Count 3.9 K/mm3 (4.5-13.0)
[2025-02-20 11:13] LABS: Anion Gap 7.9 mEq/L (5-15); Blood Urea Nitrogen 10 mg/dl (7-17); Carbon Dioxide 26 mmol/L (22.0-30.0); Chloride 106 mmol/L (98-107); Creatinine Clearance Estimated 140 mL/min (50-200); Estimated Glomerular Filt Rate 157 ml/min (>60); GFR (African American) 190 ML/MIN (>60); Glucose 81 mg/dl (74-100); Potassium 3.9 mmoL/L (3.5-5.1); Sodium 136 mmol/L (136-145)
[2025-02-20 11:23] LABS: HCG Qualitative, Serum Negative (Negative)
== END 2025-02-20 23:59 | disposition home or self-care (01) ==
LOC: PREOP 10:24
PROVIDERS: Visit Provider Orthopaedic Surgery
DX: Z01.812 Encounter for preprocedural laboratory examination (principal)
CPT/HCPCS: 80048; 84703; 85025

== ENCOUNTER 2025-02-25 09:31 | Day surgery (SDC) | payer OTHER, SELFPAY ==
[2025-02-20 12:30] VITALS: BMI 18.7
[2025-02-25] VITALS (11 sets, daily range): BP systolic 92–113; BP diastolic 51–79; PULSE 56–72; RESP 14–18; TEMP 36.4–36.6; O2SAT 96–100
[2025-02-25] MEDS: LACTATED RINGERS 1000ML 1,000 ML 50 ML IV (10:11)
--- NOTE | 2025-02-25 10:51 | EXP.ANES.CKL ---
[facility] Disclaimer: The information contained in this section may have been updated after the patient was seen, as this information can be updated by other users. 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 Nexplanon insertion Depression Sprain of ankle, right Acute postoperative anemia due to expected blood loss Encounter for elective induction of labor 39 weeks gestation of Syncope GBS bacteriuria GERD (gastroesophageal reflux disease) HSV-1 (herpes simplex virus 1) infection Screening for genetic disease carrier status Nausea and vomiting during Sexual behavior with high risk of exposure to communicable disease Allergic rhinitis Chronic ear infection Migraine Surgical History History of wisdom tooth extraction Status post vaginal delivery Family History Grandmother Cancer, Onset Age: 17 Mother Cancer, Onset Age: 18 Other Family history of diabetes mellitus Family history of essential hypertension Family history of kidney disease Family history of liver disease Social History Smoking Status: Never smoker alcohol intake: never substance use type: denies use current occupational status: employed Travel in the last 8 weeks?: None Have you lived/traveled outside US in past 30 days?: No Contact w/someone who lives/traveled outside US past 30 days?: No Exposure to someone with infectious disease in past 14 days?: No Do you have a fever (greater than 100.4 F or 38 C)?: No Have you tested positive for COVID-19?: No Exposed to someone with COVID-19 in past 14 days?: No Do you have a sore throat?: No Do you have a cough?: No Do you have any weakness?: No Do you have any diarrhea?: No Are you experiencing any unusual bleeding?: No Do you have any muscle aches/pain?: No Do you have any abdominal pain?: No Are you experiencing loss of taste or smell?: No [facility] Anesthesia Checklist Patient Identification Patient Identification: Arm Band and Verbal (Name & ) Structural Data Admitted From: Home Planned Operative Procedure/s: Knee scope Consent for Planned Operative Procedure(s) Verified: Yes Verified Documents: Surgical Consent and History and Physical NPO Status Verified Time NPO: 00:00 Additional verifications Patient : No Anesthesia Reactions: No Hx Blood Transfusions: No Blood Transfusion Reaction: No Airway Assessment Mallampati Score:: Class I Dentition: Good Dentition Neurological Assessment Level of Consciousness: Awake, Alert and Appropriate Hx Seizures: No Numbness or tingling in extremities: No Anesthesia Plan Anesthesia Risk discussed: Yes Anesthesia Plan: Verified ASA Class: II Anesthesia Type: General
[2025-02-25] MEDS: CLINDAMYCIN PHOSPHATE/D5W 900 MG/50 ML PIGGYBACK 100 MG IV (11:15)
[2025-02-25] MEDS: RINGERS SOLUTION,LACTATED 6,000 ML 6000 ML IR (11:25)
[2025-02-25] MEDS: BUPIVACAINE 0.25% 30ML VIAL 75 MG (11:25)
--- NOTE | 2025-02-25 11:51 | P.OP_ITS ---
Date of procedure: 02/25/25 Pre-op Diagnosis:: Left knee increase signal posterior horn medial meniscus with medial meniscus tear Post-op Diagnosis:: Left knee intact posterior horn medial meniscus left knee medial engaging plica left knee patellofemoral synovitis Procedure performed:: Left knee arthroscopy with extensive synovectomy and medial plica and patellofemoral joint Surgeon:: Dwain Bhatia DO Concrete Float Maker(s):: Iker CARLTON Anesthesia: GETA Estimated blood loss (mL): 0 Clinical Note:: See dictation Operative findings:: Intact medial meniscus pristine cartilage medial and lateral joint lines intact ACL large medial engaging plica and synovitis patellofemoral joint Operative note:: Patient identified preoperatively. Left knee marked with the [facility] initials. Transported operative suite. Placed upon operating bed. General anesthesia administered and airway secured. Left lower extremity prepped and draped within the knee martin. Once prepped and draped final operative timeout performed to identify proper patient procedure and extremity. Everyone involved in the case agreed. No counter indications to beginning. Did receive preoperative antibiotics. Marking pen was used to connor bony landmarks of the knee and standard portal sites. Esmarch was used to exsanguinate the extremity. Pneumatic tourniquet inflated to 300 mmHg. Skin knife was used to incise standard anterior lateral portal. Blunt with trocar was placed in the patellofemoral joint and exchanged with a camera diagnostic arthroscopy began. In the patellofemoral joint there was synovitis present and upon sweeping into the medial joint line there was a large medial and gauge plica that was inflamed. I swept into the medial joint line where the anterior medial portal was made and switch with the probe. Extensive evaluation of the medial joint revealed no displaced tears of the meniscus the suction was placed to make sure there was no displaced tear of the meniscus it was probed in its entirety and intact. The medial femoral condyle medial tibia was intact with pristine cartilage. Attention is brought to the intercondylar notch the ACL was seen and intact. Attention was then brought to the lateral joint line within the lateral joint line the lateral meniscus was intact lateral cartilage was intact. Scope into the lateral gutter no pathology seen. Wound VAC in the patellofemoral joint the medial joint line. Using the sucker shaver excision and synovectomy was performed of the plica that was engaging and synovectomy performed the patellofemoral joint. Knee was placed in range of motion the engaging plica was resolved. Camera is removed the joint was drained local anesthesia filtrated the portal sites skin closed with nylon stitch sterile dressing placed from toe to thigh patient recommend esthesia taken recovery in stable condition. Condition: stable Disposition: PACU Complications:: None apparent
--- NOTE | 2025-02-25 11:52 | EXP.ANES.I ---
[facility] Anesthesia Record Part I Anesthesia Record I Intake, IV Amount: 700 Hydration: Adequate Estimated blood loss (mL): 10 Urine output (mL): 0 Blood Pressure: 92/56 SaO2: 97 Pulse Rate: 68 Airway Patency: Patent Respiratory Rate: 18 Temperature: 97.5 F Patient is:: Stable Stable to PACU at:: 11:58
[2025-02-25] MEDS: MEPERIDINE 25MG/ML 1ML SYRINGE 12.5 MG IV (12:24)
--- NOTE | 2025-02-25 16:02 | P.PNANES_ITS ---
[facility] Anesthesia Record Part II Anesthesia Record Part II Discharge Time: 12:28 Destination: Surgical Day Care (OP Surgery) PACU nurse assessment reviewed?: Yes Patient Condition:: Good Anesthesia Complications:: None Swallowing reflex intact?: Yes Airway Patency: Patent Cyanosis?: No Blood Pressure: 108/51 SaO2: 100 Respiratory Rate: 18 Pulse Rate: 72 Temperature: 97.5 F Mental Status: Alert & Oriented Pain level:: 0 Nausea and/or vomitting:: None Intake, IV Amount: 0 Hydration: Adequate
== END 2025-02-25 13:00 | disposition home or self-care (01) ==
PROVIDERS: Visit Provider Orthopaedic Surgery
PROC: (CPT 29870; principal; 2025-02-25 11:00)
DX: M67.52 Plica syndrome, left knee (principal); M65.862 Other synovitis and tenosynovitis, left lower leg; Z79.899 Other long term (current) drug therapy
CPT/HCPCS: 29875; 96374; J0736; J1100; J1200; J2175; J2250; J2405; J3010; J7120

== ENCOUNTER 2025-03-14 16:01 | Outpatient (RCR) | payer OTHER, SELFPAY | END 2025-03-14 23:59 | disposition home or self-care (01) | LOC: PT 16:01 | PROVIDERS: Visit Provider Physician Assistant | DX: M25.562 Pain in left knee (principal) | CPT/HCPCS: 97760 ==

== ENCOUNTER 2025-03-20 14:24 | Emergency (ER) | payer OTHER, SELFPAY ==
[2025-03-20 14:29] VITALS: BP 114/69; PULSE 77; RESP 18; TEMP 36.9; O2SAT 96; BMI 18.0
--- NOTE | 2025-03-20 15:06 | HMH.EDGENADL ---
Discharge Plan Disposition Patient Disposition: Home, Self-Care Condition: Good Prescriptions Prescriptions: New triamcinolone acetonide 0.1 % cream 1 applic topical BID Qty: 30 0RF permethrin 5 % cream 1 applic topical Q14D Qty: 60 0RF Rx Instructions: Apply from neck down Leave on for 8-12hr before washing off No Action sertraline 25 mg tablet 25 mg PO DAILY Qty: 30 2RF Nexplanon 68 mg implant 68 mg subdermal ONCE ondansetron HCl 4 mg/5 mL solution 4 mg PO TID 5 Days Qty: 75 0RF omeprazole 20 mg Capsule,Delayed Release(Dr/Ec) 20 mg PO DAILY hydrocodone-acetaminophen 5-325 mg tablet 1 tab PO Q4H PRN (Reason: Postop pain) Qty: 18 0RF Referrals Follow up/Referrals: Rebecca Osborne MD [Referring, Dermatology] - See instructions Provider,Referral, [Primary Care Provider, Medical] - See instructions Activity Restrictions/Add. Instructions Additional Instructions/Restrictions: You were evaluated in the emergency department today. As we discussed, we feel your rash could be eczematous, so we are prescribing you steroid cream to see if we can help clear this up. Another consideration is potential scabies, but we do not think it is likely scabies at this time. If this does not improve your symptoms with over the next 3 days, you could try the permethrin treatment, which is a treatment for scabies. If symptoms persist, I recommend seeing dermatology. We have provided you with information for Dr. Osborne. I also recommend close follow-up with your primary care provider. Return to the emergency department for new or worsening symptoms. Clinical Impressions Clinical Impression: Rash of hands Stand Alone Forms Stand Alone Forms: Work/School Release Instructions Patient Instructions: DI for Atopic Dermatitis-Adult, DI for Scabies Print Language Print Language: German Discharge ED Provider: Sarah Burris General Adult HPI General Chief complaint: Skin/Abscess/Foreign Body Stated complaint: rash on hands and feet Time Seen by Provider: 03/20/25 14:42 Mode of Arrival: Ambulatory Source of Information: Patient Description of Symptoms (Recalled from ER Triage Doc. by RN): PT presents for evaluation of bilateral hands and bilateral toes for itching, reddness and a rash. Denies taking PO antihistamines. Applied Hydrocortisone cream claims it didnt help. PT had surgery 3 weeks ago on left knee. A&Ox4. Ambulated in department per self. Pt daughter is having similar symptoms. History of Present Illness HPI narrative: This patient is a 19-year-old female without significant past medical history presenting to the emergency department for evaluation with concern for rash to both of her hands. Of note, her daughter has fever, cough, congestion, and rash currently. Patient states that she has rash to her bilateral hands and bilateral toes it is very itchy. No one that she is been around has similar rash. She does note a history of eczema but states it is never been like this. She has been taking oral antihistamines and has been applying hydrocortisone creams but she states has not been helping. No other acute concerns noted at this time, such as fever, sore throat, cough, congestion, or oral lesions Related Data Home Medications ?Medication ?Instructions ?Recorded ?Confirmed omeprazole 20 mg capsule,delayed 20 mg PO DAILY 12/26/23 03/12/25 release etonogestrel 68 mg subdermal 68 mg subdermal ONCE 04/04/24 03/12/25 implant (Nexplanon) Previous Rx's ?Medication ?Instructions ?Recorded sertraline 25 mg tablet 25 mg PO DAILY #30 tabs 02/13/24 ondansetron HCl 4 mg/5 mL oral 4 mg (5 mL) PO TID 5 days #75 mL 09/02/24 solution hydrocodone 5 mg-acetaminophen 325 1 tab PO Q4H PRN Postop pain #18 02/25/25 mg tablet tabs permethrin 5 % topical cream 1 applic topical Q14D 2 doses #60 03/20/25 grams triamcinolone acetonide 0.1 % 1 applic topical BID #30 grams 03/20/25 topical cream Allergies Allergy/AdvReac Type Severity Reaction Status Date / Time amoxicillin AdvReac Intermediate Gastrointestinal Verified 03/12/25 10:53 Upset [facility] Disclaimer: The information contained in this section may have been updated after the patient was seen, as this information can be updated by other users. 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 Nexplanon insertion Depression Sprain of ankle, right Acute postoperative anemia due to expected blood loss Encounter for elective induction of labor 39 weeks gestation of Syncope GBS bacteriuria GERD (gastroesophageal reflux disease) HSV-1 (herpes simplex virus 1) infection Screening for genetic disease carrier status Nausea and vomiting during Sexual behavior with high risk of exposure to communicable disease Allergic rhinitis Chronic ear infection Migraine Surgical History History of wisdom tooth extraction Status post vaginal delivery Family History Grandmother Cancer, Onset Age: 17 Mother Cancer, Onset Age: 18 Other Family history of diabetes mellitus Family history of essential hypertension Family history of kidney disease Family history of liver disease Social History Smoking Status: Current every day smoker alcohol intake: never substance use type: denies use current occupational status: employed Travel in the last 8 weeks?: None Have you lived/traveled outside US in past 30 days?: No Contact w/someone who lives/traveled outside US past 30 days?: No Exposure to someone with infectious disease in past 14 days?: No Do you have a fever (greater than 100.4 F or 38 C)?: No Have you tested positive for COVID-19?: No Exposed to someone with COVID-19 in past 14 days?: No Do you have a sore throat?: No Do you have a cough?: No Do you have any weakness?: No Do you have any diarrhea?: No Are you experiencing any unusual bleeding?: No Do you have any muscle aches/pain?: No Do you have any abdominal pain?: No Are you experiencing loss of taste or smell?: No Other 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 Have you received the Flu Vaccine for this season: No Have you received the Pneumonia Vaccine: No ROS Obtained: Yes All systems reviewed & no additional complaints except as documented Physical Exam General General appearance: alert and in no apparent distress Head Head exam: atraumatic and normocephalic Eye Eye exam: Present normal appearance, PERRL and EOMI ENT ENT exam: Present normal exam, normal oropharynx, mucous membranes moist and normal external ear exam Neck Neck exam: Present normal inspection, full ROM and trachea midline; Absent tenderness Chest Chest inspection: Present normal inspection and symmetric chest wall rise; Absent tenderness Respiratory Respiratory exam: Present normal lung sounds bilaterally; Absent respiratory distress, wheezes, stridor or accessory muscle use Cardiovascular Cardiovascular exam: Present regular rate and normal rhythm Abdominal Exam Abdominal exam: Present soft; Absent distention, tenderness or guarding Extremities Exam Extremities exam: Present normal inspection, full ROM and normal capillary refill; Absent tenderness or edema Back Exam Back exam: Present normal inspection and full ROM; Absent tenderness Neurological Exam Neurological exam: Present alert, oriented X3, CN II-XII intact and normal gait; Absent motor sensory deficit Psychiatric Psychiatric exam: Present normal affect and normal mood Skin Skin exam: Present warm, dry and rash (Erythematous papular rash to the webspaces between the fingers and some of the toes) Medical Decision Making Medical Records Medical records reviewed: Yes I reviewed the patient's medical records. Screening: Per USPSTF and CDC recommendations, given the prevalence of disease in our region, it is our hospital?s policy to screen for HIV and viral Hepatitis for all patients aged 18 and over and those with ongoing risk factors. Mike Inquiry Pt receiving controlled substance: No Vital Signs: 03/20/25 14:29 03/20/25 14:36 Temperature 98.5 F Temperature Source Oral Pulse Rate [Right] 77 Respiratory Rate 18 Blood Pressure [Right Arm] 114/69 Blood Pressure Mean [Right Arm] 84 02 Sat by Pulse Oximetry 96 Oxygen Delivery Method Room Air Room Air Lab Data Lab results reviewed: Yes I reviewed the patient's lab results. Medical Decision Narrative: In summary, this patient is a 19-year-old female presenting to the Emergency Department for evaluation of rash to the hands and toes. Differential diagnoses considered include but are not limited to scabies, [id number]-mouth, dyshidrotic eczema. Ruling out the most morbid conditions drove assessment. It should be noted patient's history includes eczema which may or may not be at goal therapy. This complicates all aspects of care by increasing patient's risk for morbidity. On exam, patient has erythematous papular rash to the fingers in toes that spares the palms and soles, no blistering or bullae. No mucosal involvement. Differentials as above. After shared decision-making with the patient, she is agreeable to trial of triamcinolone in case this could be eczematous. I will go ahead and prescribe permethrin with instructions to start if it does not improve with several days of triamcinolone, in case this could be scabies. It is also possible could be a viral exanthem because her daughter is ill with a febrile illness currently. She could have [id number]-mouth. She was given strict return precautions and information for dermatology if she continues to have issues. Critical Care Critical Care Time Critical Care Time: No
[2025-03-20 15:34] VITALS: BP 116/72; PULSE 74; RESP 18; TEMP 36.8
== END 2025-03-20 15:30 | disposition home or self-care (01) ==
PROVIDERS: Emergency Provider Emergency Medicine
DX: R21 Rash and other nonspecific skin eruption (principal); F17.210 Nicotine dependence, cigarettes, uncomplicated; F41.9 Anxiety disorder, unspecified; K21.9 Gastro-esophageal reflux disease without esophagitis
CPT/HCPCS: 99282

== ENCOUNTER 2025-09-19 10:14 | Outpatient (CLI) | payer OTHER, SELFPAY ==
--- NOTE | 2025-09-19 10:17 | XR_ITS ---
FINAL REPORT CLINICAL HISTORY: right knee pain nki COMPARISON: 11/06/2022 FINDINGS: Three views of the right knee were obtained. There is no acute fracture or dislocation. Visualized joint spaces are normally aligned. Soft tissues are unremarkable. IMPRESSION: No acute bony abnormality. Reviewed, Interpreted and Dictated by Roosevelt Hernandez MD Transcribed by Darling Og Authenticated and [facility]
--- OUTSIDE RECORDS SUMMARY | 2025-09-19 10:29 | XMS_ITS | Clinical Summary ---
Author Organization [facility] Address [address] [place] [address] Phone Care Team Providers Care Press Breaker Name Role Phone Unavailable Unavailable Conditions or Problems No information available. Medications No information available. Medications Administered No information available. Allergies, Adverse Reactions, Alerts No information available. Results No information available. Plan of Care No information available. Procedures No information available. Vital Signs No information available. Immunizations No information available. Advance Directives No information available.
--- OUTSIDE RECORDS SUMMARY | 2025-09-19 10:30 | XMS_ITS | Clinical Summary ---
[facility] [address] [place] [address] Care Team Providers Care Pharmacist Per Diem Name Role Phone Provider, No Known Primary Care Provider Unavail able Allergies Active Allergy Reactions Criticality Noted Date Comments Amoxicillin Unknown - Low Severity Low 06/22/2023 Medications Vit-Fe Fumarate-FA ( vitamin 27-0.8) 27-0.8 MG tablet tablet Take 1 tablet by mouth Daily. Active ondansetron (ZOFRAN) 4 MG tablet Take 1 tablet by mouth Every 8 (Eight) Hours As Needed for Nausea or Vomiting. Active acyclovir (Zovirax) 200 MG/5ML suspension Take 10 mL by mouth 3 (Three) Times a Day. 300 mL 11/05/2023 1:53 PM EST 11/05/2023 Active Active Problems Problem Noted Date Diagnosed Date Epigastric pain 11/03/2023 Genital labial ulcer 11/03/2023 Oral ulcer 11/03/2023 Choroid plexus cyst of fetus affecting care of mother, antepartum 10/03/2023 Maternal care for other (howard pected) abnormality and damage, not applicable or unspecified 10/03/2023 Social History Tobacco Use Types Packs/Day Years Used Date Smoking Tobacco: Never Smokeless Tobacco: Never Tobacco Cessation:Counseling Given: Not Answered Alcohol Use Standard Drinks/Week Comments Never 0 (1 standard drink = 0.6 oz pur e alcohol) [facility] Utilities Answer Date Recorded In the past 12 months has [employer], gas, oil, or water company threatened to shut off services in your home? No 11/04/2023 AUDIT-C Answer Date Recorded Q1: How often do you have a drink containing alcohol? Never 11/04/2023 Q2: How many drinks containi ng alcohol do you have on a typical day when you are drinking? Patient does not drink Q3: How often do you have si x or more drinks on one occasion? Never 11/04/2023 Overall Financial Resource Strain (CARDIA) Answe r Date Recorded How hard is it for you to pa y for the very basics like food, housing, medical care, and heating? Not very hard 11/04/2023 [facility] - Occupational Stress Questionnaire Answer Date Recorded Do you feel stress - tense, restless, nervous, or anxious, or unable to sleep at night because your mind is troubled all the time - these days? Only a little 11/04/2023 Exercise Vital Sign Answer Date Recorde d On average, how many days pe r week do you engage in moderate to strenuous exercise (like a brisk walk)? 2 days 11/04/2023 On average, how many minutes do you engage in exercise at this level? 30 min 11/04/2023 Hunger Vital Sign Answer Date Recorded Within the past 12 months, y ou worried that your food would run out before you got the money to buy more. Never true 11/04/19 24 Within the past 12 months, t he food you bought just didn't last and you didn't have money to get more. Never true 11/04/2023 PRAPARE - Transportation Answer Date Re corded In the past 12 months, has l ack of transportation kept you from medical appointments or from getting medications? No 10/17 In the past 12 months, has l ack of transportation kept you from meetings, work, or from getting things needed for daily living? No 11/04/2023 Abuse Screen Answer Date Recorded Feels Unsafe at Home or Work/School no 11/04/2023 Feels Threatened by Someone no 10/17 Does Anyone Try to Keep You From Having Contact with Others or Doing Things Outside Your Home? no 11/04/2023 Physical Signs of Abuse Present no 11/04/2023 Housing Stability Answer Date Recorded Current Living Arrangements home 10/17 Potentially Unsafe Housing Conditions none 11/04/2023 Family and Community Support Answer Steven e Recorded If for any reason you need h elp with day-to-day activities such as bathing, preparing meals, shopping, managing finances, etc., do you get the help you need? I don't need any help 11/04/2023 How often do you feel lonely or isolated from those around you? Never 11/04/2023 Employment Answer Date Recorded Do you want help finding or keeping work or a job? I do not need or want help 11/04/2023 Disabilities Answer Date Recorded Difficulty Concentrating, Remembering or Making Decisions no 11/04/2023 Difficulty Managing Errands Independently no 11/04/2023 Education Answer Date Recorded Do you want help with school or training? For example, starting or completing job training or getting a high school diploma, GED or equivalent No 11/04/2023 Preferred Language Cuban 11/04/2023 PHQ-2 Answer Date Recorded Retired PHQ-9: Brief Depression Severity Measure Score 0 11/04/2023 Comments No Sex and Gender Information Value Date Recorded Sex Assigned at Female 09/20/2023 2:52 PM EST Legal Sex Female 11:38 AM EST Gender Identity Female 09/20/2023 2:52 PM EST Sexual Orientation Straight 09/20/2023 2: 52 PM EST Occupation Industry Job Start Date Job End Date Not on file Not on file Not on file Not on file Last Filed Vital Signs Vital Sign Reading Time Taken Comments Blood Pressure 121/82 01/15/2024 6:41 PM EDT Pulse 88 01/15/2024 6:42 PM EDT Temperature 36.5 C (97.7 F) 01/15/2024 6:42 PM EDT Respiratory Rate 16 01/15/2024 6:42 PM EDT Oxygen Saturation 98% 11/04/2023 8:16 AM EST Inhaled Oxygen Concentration - - Weight 49.9 kg (110 lb) 11/02/2023 11:23 PM EST Height 157.5 cm (5' 2 ) 11/02/2023 11:23 PM EST Body Mass Index 20.12 11/02/2023 11:23 PM EST Plan of Treatment Health Maintenance Due Date Last Done Comments HPV VACCINES (1 - 3-dose series) 12/19/2019 MENINGOCOCCAL B VACCINE (1 o f 2 - Standard) 2020 ANNUAL PHYSICAL 09/20/2023 HEPATITIS C SCREENING 09/20/2023 TDAP/TD VACCINES (1 - Tdap) 12/19/2023 CHLAMYDIA SCREENING 11/03/2024 11/03/2023 INFLUENZA VACCINE 05/17/2025 MENINGOCOCCAL VACCINE Aged Out No salvador natalie eligible based on patient's age to complete this topic Pneumococcal Vaccine 0-49 Aged Out No longer eligible based on patient's age to complete this topic Procedures Procedure Name Priority Date/Time Associated Diagnosis Comments CHLAMYDIA TRACHOMATIS, NEISSERIA GONORRHOEAE, PCR W/ CONFIRMATION STAT 11/03/2023 3:33 PM EST from Last 3 Months or Most Recently Relevant to Health Maintenance Results * Chlamydia trachomatis, Neisseria gonorrhoeae, PCR w/ confirmation - Swab, Vagina (11/03/2023 3:33 PM EST) Pathologist [facility] Chlamydia trachomatis, MEGGAN Negative Negative 11/08/2023 9:07 PM EST [facility] Neisseria gonorrhoeae, MEGGAN Negative Negative 11/08/2023 9:07 PM EST [facility] Swab Vaginal structure / Unknown Collection / Unknown 11/03/2023 3:33 PM EST 11/03/2023 3:55 PM EST Narrative [facility] - 11/08/2023 9:07 PM EST Performed at: [address] [place] [id number] Family Preservation Officer: Jia Mendez MD, Phone: [phone] Rand Redding MD MICROBIOLOGY - GENERAL JUAN VASQUEZ Final Result [facility] [address] [place] [address], from Last 3 Months or Most Recently Relevant to Health Maintenance Insurance [employer] Advance Directives * CPR (Attempt to Resuscitate) (Latest Code Status on File) Date Activated Date Inactivated Comments 11/03/2023 10:35 AM 11/05/2023 4:04 PM Question Answer Comments Code Status (Patient has no pulse and is not breathing): CPR (Attempt to Resuscitate) Medical Interventions (Patie nt has pulse or is breathing): Full Support Level Of Support Discussed With: Patient Care Teams Pharmacist Per Diem Relationship Specialty Start Date End Date Provider, No Known [facility] [place] [address] PCP - General 09/20/23
== END 2025-09-19 23:59 | disposition home or self-care (01) ==
LOC: RAD 10:15
PROVIDERS: Visit Provider Physician Assistant
DX: M25.561 Pain in right knee (principal)
CPT/HCPCS: 73562